=== PATIENT | male | born 1950 | race Caucasian/White ===

== ENCOUNTER 2017-04-12 14:23 | Outpatient (CLI) | payer MEDICARE ==
--- NOTE | 2017-04-20 19:33 | EKG ---
Test Reason : Blood Pressure : / mmHG Vent. Rate : 097 BPM Atrial Rate : 097 BPM P-R Int : 164 ms QRS Dur : 086 ms QT Int : 364 ms P-R-T Axes : 035 000 016 degrees QTc Int : 462 ms Normal sinus rhythm Inferior infarct , age undetermined Possible Anterior infarct , age undetermined Abnormal ECG No previous ECGs available Confirmed by ARSENIO JASSO (2) on 04/20/2017 7:33:14 PM Referred By: JERMAINE Confirmed By:ARSENIO JASSO
== END 2017-04-12 14:24 | disposition home or self-care (01) ==
LOC: LABBT 14:23
PROVIDERS: ATTEND Neurological Surgery
DX: Z01.818 Encounter for other preprocedural examination (principal); G56.21 Lesion of ulnar nerve, right upper limb
CPT/HCPCS: 93005; 93010

== ENCOUNTER 2017-04-19 09:13 | Day surgery (SDC) | payer MEDICARE ==
[2017-04-12 14:40] VITALS: BMI 31.4
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
[2017-04-19] MEDS ORDERED: Bupivacaine/Epinephrine 0.25% 30 ML VIAL ONE (11:17)
[2017-04-19] MEDS ORDERED: Midazolam HCl 2 mg/2 ml Vial ONE (11:28)
[2017-04-19] MEDS ORDERED: Fentanyl 100 MCG/2 ML VIAL ONE ×4 (11:28→13:50)
[2017-04-19] MEDS ORDERED: CEFAZOLIN/Water 2 GM/20 ML SYRINGE ONE (11:41)
[2017-04-19] MEDS ORDERED: Lidocaine 1% PF 5 ML VIAL ONE (13:02)
[2017-04-19] MEDS ORDERED: Propofol 200 MG/20 ML VIAL ONE (13:02)
--- NOTE | 2017-04-19 13:28 | OP ---
DATE OF PROCEDURE: 04/19/2017 SURGEON: Amol Neil M.D. CROWN POUNCER: Forrest Oconnor PA-C INDICATION: Pain. DIAGNOSIS: Ulnar neuropathy. PROCEDURE: Right ulnar nerve decompression, reoperation. ANESTHESIA: General. TECHNIQUE: The patient was brought into the operating room and placed under general anesthesia. He was placed in a supine position. His arms extended perpendicular to his body and prepped and draped at the level of the axilla. A linear incision, which was identified along the ulnar nerve along the elbow was identified and prepped and draped in the usual sterile fashion. 1% lidocaine was used to i nject this region. The incision was then created and an extensive amount of scar was identified with in the area. The ulnar nerve was identified and an adhesiolysis was performed in both proximal and d istal directions. After decompressing the ulnar nerve, the wound was irrigated. Hemostasis was main tained throughout. The wound was then closed in anatomic layers and a pressure dressing was applied. There were no known procedural complications.
[2017-04-19] MEDS ORDERED: HYDROmorphone 0.5 MG/0.5 ML SYRINGE ONE (14:02)
[2017-04-19] MEDS ORDERED: diphenhydrAMINE 50 MG/ML VIAL ONE (14:07)
[2017-04-19] MEDS ORDERED: diphenhydrAMINE 25 MG CAP ONE (14:32)
== END 2017-04-19 15:54 | disposition home or self-care (01) ==
LOC: SDC 09:13
PROVIDERS: ATTEND Neurological Surgery
PROC: 01N40ZZ Release Ulnar Nerve, Open Approach (ICD-10-PCS; principal; 2017-04-19)
DX: G56.21 Lesion of ulnar nerve, right upper limb (principal); R56.9 Unspecified convulsions; I10 Essential (primary) hypertension; F32.9 Major depressive disorder, single episode, unspecified; E78.5 Hyperlipidemia, unspecified; Z79.899 Other long term (current) drug therapy; Z88.6 Allergy status to analgesic agent; Z88.1 Allergy status to other antibiotic agents; Z88.0 Allergy status to penicillin; Z98.1 Arthrodesis status; Z90.89 Acquired absence of other organs; Z98.890 Other specified postprocedural states; Z87.891 Personal history of nicotine dependence; Z86.718 Personal history of other venous thrombosis and embolism
CPT/HCPCS: 96374; J1170; J1200; J2001; J2250; J2704; J3010

== ENCOUNTER 2017-05-10 13:52 | Outpatient (CLI) | payer MEDICARE ==
--- NOTE | 2017-05-10 14:27 | ULT ---
LEFT LOWER EXTREMITY VENOUS ULTRASOUND: Comparison: None. History: Left leg pain and calf pain with edema. Technique: Multiplanar grayscale and color doppler images were obtained in a left lower extremity temitope ous ultrasound. Spectral analysis of the doppler waveforms were performed. FINDINGS: The left common femoral vein, profunda femoral vein, superficial femoral vein, and popliteal vein hav e a normal appearance without visible thrombus. These vessels demonstrate normal compression, flow, a nd augmentation. The left posterior tibial vein and greater saphenous vein are also patent. IMPRESSION: No evidence of DVT. POS: [facility]
== END 2017-05-10 13:53 | disposition home or self-care (01) ==
LOC: ULT 13:52
PROVIDERS: ATTEND Family Medicine
DX: M79.605 Pain in left leg (principal)

== ENCOUNTER 2017-06-20 14:08 | Outpatient (CLI) | payer MEDICARE ==
[2017-06-20] MEDS ORDERED: Gadobenate Dimeglumine 529 MG/1 ML (20ML VIAL) ONE (16:24)
== END 2017-06-20 14:09 | disposition home or self-care (01) ==
LOC: BICMRI 14:08
PROVIDERS: ATTEND Orthopaedic Surgery Hand Surgery
DX: M51.17 Intervertebral disc disorders with radiculopathy, lumbosacral region (principal); M48.07 Spinal stenosis, lumbosacral region; M47.26 Other spondylosis with radiculopathy, lumbar region; M43.8X6 Other specified deforming dorsopathies, lumbar region
CPT/HCPCS: 36415; 72158; 82565; A9579

== ENCOUNTER 2017-07-03 14:07 | Outpatient (CLI) | payer MEDICARE ==
[2017-07-03 15:33] LABS: #Basophils 0.1 thou/uL (0.0-0.2); #Eosinphils 0.3 thou/uL (0.0-0.7); #Lymphocytes 1.8 thou/uL (1.20-3.40); #Monocytes 0.7 thou/uL (0.11-0.59); #Neutrophils 6.1 thou/uL (1.40-6.50); %Basophils 0.7 % (0.0-1.0); %Lymphocytes 20.5 % (21.0-51.0); %Monocytes 7.3 % (0.0-10.0); %Neutrophils 68.5 % (42.0-75.0); Hemoglobin 14.2 g/dL (14.0-18.0); Mean Corpuscular HGB CONC 33.5 g/dL (32.0-36.0); Mean Corpuscular Hemoglobin 31.1 pg (27.0-31.0); Mean Platelet Volume 6.6 fL (7.4-10.4); Platelet Count 193 thou/uL (130-400); RBC Distribution Width 12.9 % (11.5-14.5); Red Blood Cell (RBC) Count 4.56 mill/uL (4.70-6.10)
[2017-07-03 15:45] LABS: Prothrombin Time 13.2 SEC (12.0-14.7)
[2017-07-03 15:52] LABS: Anion Gap 10 mmol/L (10-20); BUN (Urea Nitrogen) 19 mg/dL (8.4-25.7); Calc. Creatinine Clearance 0 mL/min (70-130); Calcium 9.3 mg/dL (7.8-10.44); Carbon Dioxide 19 mmol/L (23-31); Chloride 111 mmol/L (98-107); Estimated GFR-MDRD 61; Glucose 87 mg/dL (80-115); Potassium 4.1 mmol/L (3.5-5.1); Sodium 136 mmol/L (136-145)
--- NOTE | 2017-07-03 18:11 | RAD ---
CHEST TWO VIEWS: History: Pre op. FINDINGS: Cardiac silhouette is upper limits of normal in size. Right hemidiaphragm is elevated and lobulated. There is no confluent airspace consolidation, pneumothorax, or pleural fluid evident. IMPRESSION: No active cardiopulmonary abnormalities are demonstrated. POS: [facility]
--- NOTE | 2017-07-03 21:39 | EKG ---
Test Reason : Blood Pressure : / mmHG Vent. Rate : 063 BPM Atrial Rate : 063 BPM P-R Int : 194 ms QRS Dur : 088 ms QT Int : 438 ms P-R-T Axes : 031 -08 012 degrees QTc Int : 448 ms Normal sinus rhythm Cannot rule out Anterior infarct (cited on or before 12-APR-2017) Abnormal ECG When compared with ECG of 12-APR-2017 15:29, Vent. rate has decreased BY 34 BPM Confirmed by Dio COHEN ([id number]) on 07/03/2017 9:38:43 PM Referred By: RADHA Confirmed By:Dio COHEN
== END 2017-07-03 14:08 | disposition home or self-care (01) ==
LOC: LABBT 14:07
PROVIDERS: ATTEND Orthopaedic Surgery Hand Surgery
DX: Z01.818 Encounter for other preprocedural examination (principal); G57.02 Lesion of sciatic nerve, left lower limb
CPT/HCPCS: 71046; 80048; 85025; 85610; 93005; 93010

== ENCOUNTER 2017-07-04 06:17 | Day surgery (SDC) | payer MEDICARE ==
[2017-07-03 14:24] VITALS: BMI 31.4
[2017-07-04] MEDS ORDERED: Bupivacaine PF 0.5% 30 ML VIAL ONE (06:31)
[2017-07-04] MEDS ORDERED: Bacitracin Zinc Ointment 30 gm TUBE ONE (06:31)
[2017-07-04] MEDS ORDERED: Sodium Chloride 0.9% 0 ML ONE (06:31)
[2017-07-04] MEDS ORDERED: Midazolam HCl 2 mg/2 ml Vial ONE (07:01)
[2017-07-04] MEDS ORDERED: Fentanyl 250 MCG/5 ML VIAL ONE (07:01)
[2017-07-04] MEDS ORDERED: CEFAZOLIN/Water 2 GM/20 ML SYRINGE ONE (07:11)
[2017-07-04] MEDS ORDERED: Betamet Acet/Betamet Na Ph 30 MG/5 ML VIAL ONE (08:59)
[2017-07-04] MEDS ORDERED: Fentanyl 100 MCG/2 ML VIAL ONE (09:53)
[2017-07-04] MEDS ORDERED: HYDROcodone/Acetaminophen 5/325 mg Tablet ONE (10:30)
--- NOTE | 2017-07-04 14:55 | OP ---
DATE OF PROCEDURE: 07/04/2017 PREOPERATIVE DIAGNOSES: 1. Right knee level deep peroneal nerve compression. 2. Right distal leg superficial peroneal compression. FINDINGS - Compression of both nerves with very enlarged anterior and posterior crural, compression o f the crural, compression of the deep peroneal nerve and marked fascial compression of the superficia l peroneal nerve distal leg. PROCEDURES PERFORMED: 1. Deep peroneal nerve neuroplasty. 2. Fasciotomy, proximal leg. 3. Superficial nerve neuroplasty, right distal leg. 4. Fasciotomy, anterior and lateral compartments, right leg. ESTIMATED BLOOD LOSS: 10 mL. TOURNIQUET TIME: 45 minutes. INJECTABLE: He had 3 mL of Celestone dripped over the deep peroneal nerve and 2 mL over the superfic ial peroneal nerve after release. COMPLICATIONS: None. INDICATIONS FOR PROCEDURE: Pain at the leg. Appropriate clinical and physical neurodiagnostic testi ng indicating the source of pain was at these sites. DESCRIPTION OF PROCEDURE: After successful general endotracheal anesthesia, appropriate timeout was performed, matching the appropriately done consent with the site and procedure. We then prepped the leg, outlined the incisions to include using a zigzag incision beginning set at two fingerbreadths di stal to the fibular head, 2 cm proximal fibula and 5 cm distal to the fibula. Then, we used the dist al incision technique of Parvez to find the nerve in its appropriate angle. We exsanguinated the limb and inflated tourniquet 250 mmHg pressure and began distally. This indicated skin, subcutaneous tissue, mucousy nerve through the fascia. We incised the fascia over the anterior compartment 5 mm anterior to the superficial peroneal branch. We began the mid portion and released the fascia proxim ally and once we finished this, we palpated it and there was no undue tension. Then, we lifted up on the fascia from the midportion and went distally to include to identify the three major muscular ___ __ branches sparing them. We then finished the fasciotomy both longitudinally and made some transver se splits anterior and posterior to the nerve to ensure that the fascia would have no undue tension o nce the incision was closed. We placed a moist sponge here. Attention was turned proximally, where we used a zigzag incision carried through skin, subcutaneous t issue, and at an approximately 2 cm proximal to the fibular head dissected down and found deep perone al nerve to include the arterial central location. As we went distally, arteriosus location was disa ppeared as we met all compression both the fascia and then we reached the anterior and posterior crur al points. Released these areas appropriately, freed the nerve inferior and maintained the muscle. We then went distal to this 1 cm and found the unknown name crural of fascia released as well protect ed the nerve underlying branches. We then placed Celestone on both the nerve as described above, released the tourniquet, obtained hemo stasis. We did not close any fascia. We closed both incisions with a running 3-0 Monocryl and then for the d eep dermal, epidermal closure use benzoin and Steri-Strips. The patient had a bulky dressing applied with 4 x 4's, Kerlix at each site with a 6-inch Giles wrap from a metatarsophalangeal joints to the mi dthigh. He left the operating room without evidence of anesthetic or operative complication.
== END 2017-07-04 11:05 | disposition home or self-care (01) ==
LOC: SDC 06:17
PROVIDERS: ATTEND Orthopaedic Surgery Hand Surgery
PROC: 0KNS0ZZ Release Right Lower Leg Muscle, Open Approach (ICD-10-PCS; principal; 2017-07-04)
PROC: 01NH0ZZ Release Peroneal Nerve, Open Approach (ICD-10-PCS; 2017-07-04)
DX: G57.31 Lesion of lateral popliteal nerve, right lower limb (principal); R56.9 Unspecified convulsions; I10 Essential (primary) hypertension; E78.5 Hyperlipidemia, unspecified; Z87.891 Personal history of nicotine dependence; Z88.0 Allergy status to penicillin; Z88.1 Allergy status to other antibiotic agents; Z88.8 Allergy status to other drugs, medicaments and biological substances; Z91.040 Latex allergy status; Z79.899 Other long term (current) drug therapy; Z98.1 Arthrodesis status; Z98.890 Other specified postprocedural states
CPT/HCPCS: 96374; A4216; J0702; J2250; J3010; J3490; S0020

== ENCOUNTER 2017-07-10 15:39 | Day surgery (SDC) | payer MEDICARE ==
[~2017-07-10 15:39] MED LIST: Ondansetron HCl/PF 4 MG/2 ML Vial ONE; PHENYLEPHRINE-NS 100 MCG/ML 10 ML SYRINGE ONE; PROPOFOL 200 MG/20 ML VIAL ONE; ePHEDrine/0.9% NaCl/PF SYRINGE 50 mg/10 ml ONE
[2017-07-10] MEDS ORDERED: Vancomycin HCl 1.5 GM in Sodium Chloride 0.9% 250 ML 300 ML IVPB SCH (16:45)
[2017-07-10] MEDS ORDERED: Bupivacaine PF 0.5% 30 ML VIAL ONE (16:55)
[2017-07-10] MEDS ORDERED: Bacitracin Zinc Ointment 30 gm TUBE ONE (16:55)
[2017-07-10] MEDS ORDERED: Sodium Chloride 0.9% 30 ML ONE (16:56)
[2017-07-10 17:33] LABS: #Basophils 0.1 thou/uL (0.0-0.2); #Eosinphils 0.2 thou/uL (0.0-0.7); #Lymphocytes 2.8 thou/uL (1.20-3.40); #Monocytes 0.6 thou/uL (0.11-0.59); #Neutrophils 5.9 thou/uL (1.40-6.50); %Basophils 0.9 % (0.0-1.0); %Eosinophils 2.1 % (0.0-10.0); %Lymphocytes 29.2 % (21.0-51.0); %Monocytes 6.6 % (0.0-10.0); %Neutrophils 61.2 % (42.0-75.0); Hemoglobin 13.2 g/dL (14.0-18.0); Mean Corpuscular HGB CONC 32.8 g/dL (32.0-36.0); Mean Corpuscular Volume 94.3 fl (80.0-94.0); Mean Platelet Volume 6.7 fL (7.4-10.4); Platelet Count 224 thou/uL (130-400); RBC Distribution Width 12.6 % (11.5-14.5); Red Blood Cell (RBC) Count 4.28 mill/uL (4.70-6.10); White Blood Cell (WBC) Count 9.6 thou/uL (4.8-10.8)
[2017-07-10] MEDS ORDERED: Fentanyl 100 MCG/2 ML VIAL ONE ×3 (17:53→19:31)
[2017-07-10] MEDS ORDERED: Sodium Chloride 0.9% 10 ML ONE (18:20)
[2017-07-10] MEDS ORDERED: Promethazine HCl 25 MG/ML VIAL IM PRN (19:03)
[2017-07-10] MEDS ORDERED: Ondansetron HCl/PF 4 MG/2 ML Vial IVP PRN (19:03)
[2017-07-10] MEDS ORDERED: Promethazine HCl 25 MG/ML VIAL SLOW IVP PRN (19:03)
[2017-07-10] MEDS ORDERED: Morphine 4 MG/ML VIAL ONE (19:56)
[2017-07-10] MEDS ORDERED: HYDROcodone/Acetaminophen 5/325 mg Tablet ONE (20:32)
--- NOTE | 2017-07-11 11:52 | OP ---
DATE OF PROCEDURE: 07/10/2017 PREOPERATIVE DIAGNOSES: Right wound/at the lateral knee separation after previous peroneal nerve dec ompression proximal and distal bone. The proximal wound dehiscence. POSTOPERATIVE FINDINGS: 1. Wound separation complete. 2. No gross infection. 3. No gross evidence of peroneal nerve damage. PROCEDURE PERFORMED: 1. Wound debridement depth 1.043 following techniques. 2. Excisional technique. 3. Removal of denuded fat and the wound edges were debrided as well excisionally. 4. Down to, but not including the peroneal nerve and then we inspected the fascia nerve area as well . There was no gross infection found. 5. Instrumentation used for tenotomy scissors, 11 blade knife, curette, and Adson's and Pulsavac irr igation, total of 3 liters of the Pulsavac pressure with vancomycin powder. INDICATIONS: The patient in 1 week after surgery where he had his wound closed in a deep fashion wit h a running heavy Monocryl and then Steri-Strips, but he reported difficulty showering and the wound was dressed with sterile water and we saw that the wound had at the lateral knee proximal l eg, but did not separate the distal third incision whatsoever. This area was much dry in the clinic. There is no infection. DESCRIPTION OF PROCEDURE: After successful general LMA technique, the limb prepped and draped. Time out done appropriately. We then inspected the wound, removed all the Steri-Strip tape, lifted up th e wound edges and saw no gross infection, saw the peroneal nerve intact and then denuded fat subcutan eous were removed with the techniques listed (debridement) above. Then, we did the same with a circu mferentially 1 mm of skin, proximally and distally. Hemostasis obtained. We then gave a sample of f at and subcutaneous skin for the acid fast culture and a swab was done for culture of the wound post- debridement. Then closed the wound with interrupted 3-0 Monocryl in an excellent fashion with appropriate tension. This was followed by interrupted simple 3-0 nylon, each stitch 5 mm from the other to prevent a deh iscence. Wound was in excellent condition, 30 mL 0.5% Marcaine was given subcutaneously circumferent ially around the incision and proximal to it. Patient had a bulky dressing applied with Adaptic, but no bacitracin and the same was done at the distal wound. Kerlix was placed over the 4 x 4, and then a 6-inch Giles from the metatarsophalangeal joint level up to the proximal third of thigh was used as well. The patient left the operating without complication.
[2017-07-14 10:20] LABS: Fungus Stain Final report (.)
[2017-08-10 07:30] LABS: Fungus Culture Final report (.)
== END 2017-07-10 20:58 | disposition home or self-care (01) ==
LOC: SDC 15:39
PROVIDERS: ATTEND Orthopaedic Surgery Hand Surgery
PROC: 0JBN0ZZ Excision of Right Lower Leg Subcutaneous Tissue and Fascia, Open Approach (ICD-10-PCS; principal; 2017-07-10)
DX: T81.30XA Disruption of wound, unspecified, initial encounter (principal); Z88.1 Allergy status to other antibiotic agents; Z88.8 Allergy status to other drugs, medicaments and biological substances; Z88.2 Allergy status to sulfonamides; Z91.040 Latex allergy status; Z87.891 Personal history of nicotine dependence
CPT/HCPCS: 85025; 85652; 87070; 87102; 87116; 87205; 87206; 96374; A4216; J2270; J2405; J2704; J3010; J3370; J3490; J7050; S0020

== ENCOUNTER 2017-08-03 10:25 | Outpatient (CLI) | payer MEDICARE | END 2017-08-03 10:26 | disposition home or self-care (01) | LOC: BICCT 10:25 | PROVIDERS: ATTEND Neurological Surgery | DX: M54.5 Low back pain (principal); M48.061 Spinal stenosis, lumbar region without neurogenic claudication; M48.8X6 Other specified spondylopathies, lumbar region | CPT/HCPCS: 72131 ==

== ENCOUNTER 2017-11-15 16:17 | Emergency (ER) | payer MEDICARE ==
[2017-11-15] MEDS ORDERED: HYDROcodone/Acetaminophen 5/325 mg Tablet ONE (17:01)
== END 2017-11-15 17:05 | disposition home or self-care (01) ==
LOC: ERS 16:17
DX: G62.9 Polyneuropathy, unspecified (principal); I10 Essential (primary) hypertension
CPT/HCPCS: 99283

== ENCOUNTER 2018-01-01 12:43 | Outpatient (CLI) | payer MEDICARE ==
[~2018-01-01 12:43] MED LIST changes: +Gadobenate Dimeglumine 529 MG/1 ML (20ML VIAL) ONE; -Ondansetron HCl/PF 4 MG/2 ML Vial ONE; -PHENYLEPHRINE-NS 100 MCG/ML 10 ML SYRINGE ONE; -PROPOFOL 200 MG/20 ML VIAL ONE; -ePHEDrine/0.9% NaCl/PF SYRINGE 50 mg/10 ml ONE
--- NOTE | 2018-01-01 16:06 | MRI ---
MRI BRAIN WITH AND WITHOUT IV CONTRAST: HISTORY: Headache, new onset tremor in the right lower extremity. FINDINGS: There are multiple foci of T2 prolongation in the periventricular white matter consistent with chroni c small-vessel ischemic disease. The ventricular size is appropriate and the basilar cisterns are pa tent. No restricted diffusion is seen. No evidence of infarct, hemorrhage, mass, midline shift, or abnormal extraaxial fluid collections is seen. There is mucosal disease in the paranasal sinuses. IMPRESSION: No evidence of acute intracranial process or mass. POS: [facility]
== END 2018-01-01 12:44 | disposition home or self-care (01) ==
LOC: BICMRI 12:43
PROVIDERS: ATTEND Orthopaedic Surgery Hand Surgery
DX: G25.2 Other specified forms of tremor (principal)
CPT/HCPCS: 70553; 82565; A9579

== ENCOUNTER 2018-03-15 09:34 | Outpatient (CLI) | payer MEDICARE ==
--- NOTE | 2018-03-15 13:18 | MRI ---
MRI RIGHT KNEE: DATE: 03/15/2018. PROVIDED CLINICAL HISTORY: Right knee pain. FINDINGS: No comparisons. Changes of mucinous degeneration of the ACL are demonstrated. There is increased si gnal intensity on fluid sensitive sequences involving the proximal PCL compatible with partial tear. The mediocollateral ligament, lateral collateral ligamentous complex, and extensor mechanism appear intact. There is complex nondisplaced degenerative tearing/maceration of the body and posterior horn of the m edial meniscus. The lateral meniscus demonstrates no evidence for a tear. There is extensive full-thickness articular cartilage loss involving much of the central weight-beari ng portions of the medial femorotibial joint. Numerous intraarticular bodies are present throughout the knee joint, the largest measuring about 9 mm. Osteophyte formation is seen about the knee, predominating about the medial femorotibial joint. Ther e is articular cartilage signal and homogeneity involving the patellar cartilage with mild thinning o f the medial facet. There is a large knee joint effusion. No focal concerning regional marrow or muscular signal abnorma lity. Signal alteration involving the medial femoral condyle and medial tibial plateau reactive to a rticular cartilage loss noted. IMPRESSION: 1. Partial tear of the posterior cruciate ligament. 2. Extensive maceration/complex nondisplaced degenerative tearing involving the body and posterior h orn of the medial meniscus. 3. Advanced medial femorotibial degenerative chondrosis with large knee joint effusion and multiple intraarticular bodies. 4. Patellar chondrosis. POS: [facility]
== END 2018-03-15 09:35 | disposition home or self-care (01) ==
LOC: BICMRI 09:34
PROVIDERS: ATTEND Orthopaedic Surgery Hand Surgery
DX: M23.321 Other meniscus derangements, posterior horn of medial meniscus, right knee (principal); M25.461 Effusion, right knee

== ENCOUNTER 2018-03-29 14:24 | Outpatient (CLI) | payer MEDICARE ==
[2018-03-29 15:02] LABS: #Basophils 0.1 thou/uL (0.0-0.2); #Eosinphils 0.3 thou/uL (0.0-0.7); #Lymphocytes 1.3 thou/uL (1.20-3.40); #Monocytes 0.8 thou/uL (0.11-0.59); #Neutrophils 5.1 thou/uL (1.40-6.50); %Basophils 0.7 % (0.0-1.0); %Eosinophils 3.6 % (0.0-10.0); %Lymphocytes 17.5 % (21.0-51.0); %Monocytes 10.2 % (0.0-10.0); %Neutrophils 67.9 % (42.0-75.0); Hemoglobin 14.3 g/dL (14.0-18.0); Mean Corpuscular HGB CONC 33.2 g/dL (32.0-36.0); Mean Corpuscular Hemoglobin 31.4 pg (27.0-31.0); Mean Corpuscular Volume 94.7 fL (78.0-98.0); Platelet Count 179 thou/uL (130-400); RBC Distribution Width 12.2 % (11.5-14.5); Red Blood Cell (RBC) Count 4.55 mill/uL (4.70-6.10); White Blood Cell (WBC) Count 7.5 thou/uL (4.8-10.8)
[2018-03-29 15:25] LABS: Anion Gap 16 mmol/L (10-20); BUN (Urea Nitrogen) 17 mg/dL (8.4-25.7); Calc. Creatinine Clearance 0 mL/min (70-130); Calcium 9.3 mg/dL (7.8-10.44); Carbon Dioxide 20 mmol/L (23-31); Chloride 109 mmol/L (98-107); Estimated GFR-MDRD 58; Glucose 97 mg/dL (80-115); Potassium 4.7 mmol/L (3.5-5.1); Sodium 140 mmol/L (136-145)
== END 2018-03-29 14:25 | disposition home or self-care (01) ==
LOC: LABBT 14:24
PROVIDERS: ATTEND Orthopaedic Surgery
DX: Z01.818 Encounter for other preprocedural examination (principal); S83.242A Other tear of medial meniscus, current injury, left knee, initial encounter
CPT/HCPCS: 80048; 85025; 93005; 93010

== ENCOUNTER 2018-04-04 08:15 | Day surgery (SDC) | payer MEDICARE ==
[2018-03-29 14:49] VITALS: BMI 31.4
[2018-04-04] MEDS ORDERED: CEFAZOLIN 2 GM/50 ML BAG ONE (09:01)
[2018-04-04] MEDS ORDERED: PROPOFOL 20 ML ONE (09:25)
[2018-04-04] MEDS ORDERED: Bupivacaine HCl 0.5%/Epinephrine 1:200,000/PF 30 ml Vial ONE (10:00)
[2018-04-04] MEDS ORDERED: Lidocaine 2% w/Epinephrine 1:200K 20 ML VIAL ONE (10:00)
[2018-04-04] MEDS ORDERED: Fentanyl 100 MCG/2 ML VIAL ONE (11:07)
[2018-04-04] MEDS ORDERED: Lidocaine 1% PF 5 ML VIAL ONE (18:19)
[2018-04-04] MEDS ORDERED: Ondansetron PF 4 MG/2 ML Vial ONE (18:19)
[2018-04-04] MEDS ORDERED: Dexamethasone 20 MG/5 ML VIAL ONE (18:19)
--- NOTE | 2018-04-05 11:29 | OP ---
DATE OF PROCEDURE: 04/04/2018 PREOPERATIVE DIAGNOSIS: Medial meniscus tear, right knee. POSTOPERATIVE DIAGNOSES: Medial meniscus tear, right knee and grade 4 chondromalacia, small portion of medial femoral condyle, right knee. ANESTHESIA: General. BLOOD LOSS: Minimal. SPECIMENS: None. DRAINS: None. COMPLICATIONS: None. TOURNIQUET TIME: Not used. DESCRIPTION OF PROCEDURE: The patient was taken to the operating room, where general anesthesia was induced. Right leg was prepped and draped in usual sterile fashion. Scope was placed in the lateral portal. A probe was placed in the medial portal. Patellofemoral joint had some mild degenerative changes. There were small chondral loose bodies in the suprapatellar pouch, which I just removed with the shaver. The medial compartment had a large medial meniscus tear. I debrided using basket forceps, smoothed using a 4.0 full radius resector. I probed the meniscus and confirmed it was stable. I did do a chondroplasty of some of unstable cartilaginous flap tear edges. Lateral compartment was free of disease. ACL appeared to be partially torn, but muscle fibers were intact. He was then drained. Sterile dressing was applied. There were no complications. Job ID: [id number]
== END 2018-04-04 14:00 | disposition home or self-care (01) ==
LOC: SDC 08:15
PROVIDERS: ATTEND Orthopaedic Surgery
PROC: 0SBC4ZZ Excision of Right Knee Joint, Percutaneous Endoscopic Approach (ICD-10-PCS; principal; 2018-04-04)
DX: S83.242A Other tear of medial meniscus, current injury, left knee, initial encounter (principal); M94.261 Chondromalacia, right knee; Z79.899 Other long term (current) drug therapy; Z88.0 Allergy status to penicillin; Z88.8 Allergy status to other drugs, medicaments and biological substances; Z88.1 Allergy status to other antibiotic agents; Z91.040 Latex allergy status
CPT/HCPCS: 29881; 97139; G8978; G8979; G8980; J0670; J1100; J2001; J2405; J2704; J3010

== ENCOUNTER 2018-05-17 09:59 | Day surgery (SDC) | payer MEDICARE ==
[2018-05-16 10:38] VITALS: BMI 33.5
[2018-05-17] MEDS ORDERED: Lidocaine 2% PF 5 ML VIAL ONE (11:57)
[2018-05-17] MEDS ORDERED: Bupivacaine HCl 0.5%/Epinephrine 1:200,000/PF 30 ml Vial ONE ×2 (11:57→13:13)
[2018-05-17] MEDS ORDERED: Sodium Chloride 0.9% 0 ML ONE (11:57)
[2018-05-17] MEDS ORDERED: PHENYLEPHRINE-NS 100 MCG/ML 10 ML SYRINGE ONE (12:11)
[2018-05-17] MEDS ORDERED: ePHEDrine 50 MG/ML VIAL ONE (12:11)
[2018-05-17] MEDS ORDERED: Ondansetron PF 4 MG/2 ML Vial ONE (12:11)
[2018-05-17] MEDS ORDERED: PROPOFOL 200 MG/20 ML VIAL ONE (12:11)
[2018-05-17] MEDS ORDERED: Famotidine/PF 20 mg/2ml Vial ONE (12:16)
[2018-05-17] MEDS ORDERED: Fentanyl 100 MCG/2 ML VIAL ONE ×3 (12:16→15:10)
[2018-05-17] MEDS ORDERED: PROPOFOL 0 ML ONE (12:17)
[2018-05-17] MEDS ORDERED: Propofol 500 MG/50 ML VIAL ONE (12:17)
[2018-05-17] MEDS ORDERED: Midazolam HCl 2 mg/2 ml Vial ONE (12:27)
[2018-05-17] MEDS ORDERED: Levofloxacin 500 mg/D5W 100 ml Premix Bag ONE (12:50)
[2018-05-17] MEDS ORDERED: HYDROcodone/Acetaminophen 5/325 mg Tablet ONE (15:28)
--- NOTE | 2018-05-17 17:43 | RAD ---
FOUR INTRAOPERATIVE IMAGES OF THE LOWER THORACIC SPINE: 05/17/18 HISTORY: Placement of dorsal column stimulator. Two AP and two lateral views of the lower thoracic spine demonstrate placement of mid and lower thora cic dorsal column stimulators along the posterior aspect of the spinal canal in the lower thoracic re gion. There is also an L1 vertebroplasty. IMPRESSION: Placement of dorsal column stimulators. POS: [facility]
--- NOTE | 2018-05-17 21:12 | OP ---
DATE OF PROCEDURE: 05/17/2018 MULTICULTURAL MANAGER SURGEON: Dr. Stacy Linares. PREOPERATIVE DIAGNOSES: 1. Postlaminectomy syndrome. 2. Lumbar radiculopathy. POSTOPERATIVE DIAGNOSES: 1. Postlaminectomy syndrome. 2. Lumbar radiculopathy. PROCEDURES PERFORMED: 1. Spinal cord stimulator generator implants. 2. Spinal cord stimulator lead implant x2. 3. Programming. 4. Fluoroscopy. ESTIMATED BLOOD LOSS: Minimal. DESCRIPTION OF PROCEDURE: The patient was taken to the procedure room and placed prone on the operating room table. A time-out was performed. The back was prepped with ChloraPrep and sterile drapes were applied. Using the fluoroscopy, we located the interspace of L1-L2. We anesthestized the skin above this with 0.5% Marcaine with epinephrine. We used a 10-blade scalpel to make an incision and then blunt dissected this down to fascia. We then inserted a 14-gauge needle in a paramedian technique and engaged in an L1-L2 ligament. We used lost resistance to air to gain access to the epidural space. Aspiration was negative for heme or CSF. An eight-contact stimulator lead was then threaded through the needle and under continuous fluoroscopy, it was threaded through the dorsal right side of midline epidural space up to the top of T9. A contralateral lead was placed in the exact same fashion; however, once we went the epidural space, we threaded it to right of midline, top of T10. Stimulation was performed with the patient awake and the patient was noted paresthesia in all painful areas. The needles were removed, taken care to keep the leads in place, anchors were placed over the leads and taken down to fascia. These were clicked to lock them in place. These were sutured into fascia using 2-0 silk suture x2. We took another image and leads had removed. We torqued down the leads and they did not move. We then made an incision in the left buttock after anesthetizing with 0.5% Marcaine with epinephrine. The incision was blunt dissected down to Argelia's fascia and then we blunt dissected it superior and inferior to create a pocket. A tunneling device was used to make a connection between the 2 incisions. The leads were placed through the tunneling device and brought to the battery pocket. The leads were connected to the battery and both leads were torqued down. Impedances were checked, which were all good. The battery was flipped into the pocket. We then approximated both incisions using 2-0 Vicryl suture in a simple interrupted fashion. We approximated the skin using a 4-0 Monocryl stitch in a subcuticular fashion and occlusive dressing of Dermabond was applied over both. Job ID: [id number]
== END 2018-05-17 15:55 | disposition home or self-care (01) ==
LOC: SDC 09:59
PROVIDERS: ATTEND Specialist
PROC: 0JH70DZ Insertion of Multiple Array Stimulator Generator into Back Subcutaneous Tissue and Fascia, Open Approach (ICD-10-PCS; principal; 2018-05-17)
PROC: 00HU3MZ Insertion of Neurostimulator Lead into Spinal Canal, Percutaneous Approach (ICD-10-PCS; 2018-05-17)
DX: M96.1 Postlaminectomy syndrome, not elsewhere classified (principal); M54.16 Radiculopathy, lumbar region; G89.4 Chronic pain syndrome; M48.061 Spinal stenosis, lumbar region without neurogenic claudication; I10 Essential (primary) hypertension; E78.5 Hyperlipidemia, unspecified; Z87.891 Personal history of nicotine dependence; Z79.899 Other long term (current) drug therapy; Z88.0 Allergy status to penicillin; Z88.1 Allergy status to other antibiotic agents; Z88.8 Allergy status to other drugs, medicaments and biological substances; Z91.040 Latex allergy status; Z98.1 Arthrodesis status
CPT/HCPCS: 63650 ×2; 63685; 72100; 76000; C1767; J0670; J1956; J2001; J2250; J2405; J2704; J3010; J3490; S0028

== ENCOUNTER 2018-05-21 14:55 | Outpatient (CLI) | payer MEDICARE ==
--- NOTE | 2018-05-21 16:23 | RAD ---
RIGHT FOOT 3 VIEWS: HISTORY: Right foot pain. FINDINGS/IMPRESSION: There are degenerative changes are present in the 1st MTP joint. No fracture, dislocation, or bone d estruction is identified. POS: C
== END 2018-05-21 14:56 | disposition home or self-care (01) ==
LOC: BICRAD 14:55
PROVIDERS: ATTEND Specialist
DX: M79.671 Pain in right foot (principal); M19.071 Primary osteoarthritis, right ankle and foot
CPT/HCPCS: 36415; 81001; 84153; 87086

== ENCOUNTER 2018-05-28 13:15 | Outpatient (CLI) | payer MEDICARE ==
[2018-05-28 15:24] LABS: Hemoglobin 14.2 g/dL (14.0-18.0); Mean Corpuscular HGB CONC 32.6 g/dL (32.0-36.0); Mean Corpuscular Hemoglobin 31.3 pg (27.0-31.0); Mean Corpuscular Volume 96.1 fL (78.0-98.0); Mean Platelet Volume 7.2 fL (7.4-10.4); Platelet Count 207 thou/uL (130-400); RBC Distribution Width 12.3 % (11.5-14.5); Red Blood Cell (RBC) Count 4.54 mill/uL (4.70-6.10); White Blood Cell (WBC) Count 7.7 thou/uL (4.8-10.8)
[2018-05-28 15:30] LABS: PTT 30.7 SEC (22.9-36.1); Prothrombin Time 12.9 SEC (12.0-14.7)
[2018-05-28 15:44] LABS: Anion Gap 15 mmol/L (10-20); BUN (Urea Nitrogen) 9 mg/dL (8.4-25.7); Calc. Creatinine Clearance 0 mL/min (70-130); Calcium 9.6 mg/dL (7.8-10.44); Carbon Dioxide 15 mmol/L (23-31); Chloride 113 mmol/L (98-107); Estimated GFR-MDRD 65; Glucose 99 mg/dL (80-115); Potassium 3.8 mmol/L (3.5-5.1); Sodium 139 mmol/L (136-145)
--- NOTE | 2018-05-28 15:52 | RAD ---
CHEST 2 VIEWS: HISTORY: Preoperative exam. COMPARISON: None. FINDINGS: Dorsal column stimulator is noted. Slight elongation of the aorta. Normal cardiac silhouette. The pulmonary vessels and hilum are normal. Costophrenic angles are clear. No consolidation or mass. N o pneumothorax or osseous abnormalities. IMPRESSION: No acute cardiopulmonary process. POS: C
[2018-05-28 16:28] LABS: Bilirubin Negative (Negative); Blood, Urine Negative (Negative); Clarity CLEAR (Clear); Glucose, Urine (Dipstick) Negative (Negative); Leukocyte Negative (Negative); Nitrite Negative (Negative); Protein, Urine (Dipstick) Negative (Neg-Trace); Specific Gravity, Urine 1.018 (1.002-1.036); Urobilinogen 0.2 mg/dL (0.2-1.0)
[2018-05-28 16:44] LABS: Bacteria/HPF None Seen HPF (None Seen); Crystals/HPF RARE CA OXALATE HPF (Negative); Hyaline Casts/LPF NONE SEEN LPF (0-3 Hyaline); RBC/HPF None Seen HPF (0-3); Squamous Epithelial 0-3 HPF (0-3); WBC/HPF None Seen HPF (0-3)
== END 2018-05-28 13:16 | disposition home or self-care (01) ==
LOC: LABBT 13:15
PROVIDERS: ATTEND Urology
DX: Z01.818 Encounter for other preprocedural examination (principal); Z12.5 Encounter for screening for malignant neoplasm of prostate; R97.20 Elevated prostate specific antigen [PSA]; N40.1 Benign prostatic hyperplasia with lower urinary tract symptoms; N52.9 Male erectile dysfunction, unspecified; E66.9 Obesity, unspecified; G62.9 Polyneuropathy, unspecified; Z87.440 Personal history of urinary (tract) infections; Z87.448 Personal history of other diseases of urinary system
CPT/HCPCS: 71046; 80048; 81001; 85027; 85610; 85730; 87086

== ENCOUNTER 2018-05-30 10:41 | Outpatient (CLI) | payer MEDICARE ==
[~2018-05-30 10:41] MED LIST changes: -Gadobenate Dimeglumine 529 MG/1 ML (20ML VIAL) ONE; +Iodixanol 320 MG/ML (100 ML BOT) ONE
--- NOTE | 2018-05-30 14:02 | CT ---
CT ABDOMEN AND PELVIS WITH AND WITHOUT IV CONTRAST: Date: 05/30/18 HISTORY: Elevated PSA. R97.2. FINDINGS: Each renal collecting system and ureter are decompressed without stone evident. Urinary bladder is un remarkable. Mild scarring at the lung bases. A curved area of low density associated with the posterior and later al aspect of the right liver lobe has the appearance of a diaphragmatic leaflet indenting the liver o n the coronal images. Old post-traumatic or postoperative changes of the left lateral lower ribs and the right iliac bone. There are degenerative changes of the lumbar spine. Vertebroplasty cement at an upper lumbar level. No filling defects are apparent within the urinary system on the delayed images. Scattered diverticul a arise from the colon without adjacent inflammation. No enlarged lymph nodes or free fluid are appar ent. There is calcification within the arterial structures. Dorsal column stimulator of the spine is partially visualized. Lobular cysts arise from the cortex of each kidney. Prostate gland shows no foc al abnormalities on CT. IMPRESSION: 1. Bilateral renal cysts. No acute urinary tract abnormalities are demonstrated. 2. Atherosclerosis. 3. Diverticulosis. No evidence of diverticulitis. POS: [facility]
== END 2018-05-30 10:42 | disposition home or self-care (01) ==
LOC: TBSIIMAG 10:41
PROVIDERS: ATTEND Urology
DX: N40.1 Benign prostatic hyperplasia with lower urinary tract symptoms (principal); R97.20 Elevated prostate specific antigen [PSA]; Z87.440 Personal history of urinary (tract) infections; N28.1 Cyst of kidney, acquired; I70.90 Unspecified atherosclerosis; K57.90 Diverticulosis of intestine, part unspecified, without perforation or abscess without bleeding
CPT/HCPCS: 74178; Q9967

== ENCOUNTER 2018-06-11 06:09 | Day surgery (SDC) | payer MEDICARE ==
[2018-05-28 13:33] VITALS: BMI 32.1
[2018-06-11] MEDS ORDERED: Levofloxacin 500 mg/D5W 100 ml Premix Bag ONE (06:35)
[2018-06-11] MEDS ORDERED: Fentanyl 100 MCG/2 ML VIAL ONE (06:37)
[2018-06-11] MEDS ORDERED: Famotidine/PF 20 mg/2ml Vial ONE (06:37)
[2018-06-11] MEDS ORDERED: Phenazopyridine HCl 97.5 MG TABLET ONE (08:30)
[2018-06-11] MEDS ORDERED: Morphine 4 MG/ML VIAL ONE (08:31)
--- NOTE | 2018-06-11 10:20 | OP ---
DATE OF PROCEDURE: 06/11/2018 PRIMARY CARE PHYSICIAN: Elzbieta Velazquez MD PREOPERATIVE DIAGNOSES: 1. A 67-year-old morbidly obese male with history of elevated PSA of 18.9, unremarkable digital rectal exam. 2. History of benign prostatic hyperplasia, prior history of cystoscopy due to "obstruction unknown course.". POSTOPERATIVE DIAGNOSES: 1. A 67-year-old morbidly obese male with history of elevated PSA of 18.9, unremarkable digital rectal exam. 2. History of benign prostatic hyperplasia, prior history of cystoscopy due to "obstruction unknown course.". PROCEDURES PERFORMED: Flexible cystoscopy, transrectal ultrasound prostate biopsy 12 needle core. ANESTHESIA: LMA. COMPLICATIONS: None apparent. DISPOSITION: To recovery room in stable condition. SPECIMEN: Standard 12 core needle biopsy of the prostate. INTRAOPERATIVE FINDINGS: 1. Wide caliber bulbar stricture, 16 to 18-[place] caliber, not warranting treatment. 2. Bilobar hyperplasia coapting with minimal BPH, no evidence of intravesical median lobe. 3. Bilateral ureteral orifices about 3 to 4 mm proximal to the bladder neck. 4. Bladder grossly unremarkable for lesion, tumor, or stone. 5. Mild debris within the bladder. 6. Transrectal ultrasound without evidence of lesion of concern. 7. Unremarkable MAGALY. INDICATIONS FOR PROCEDURE AND HISTORY: Mr. Beaulieu is a 67-year-old male, who presented for evaluation of elevated PSA. The patient has undergone knee surgery and desired to defer his prostate biopsy. Subsequently underwent nerve stimulator and has been on Levaquin and Bactrim per Pain Service. He was cleared by Pain Service and Orthopaedic Surgery to proceed with prostate biopsy. Risks and complications and indications of the procedure was reviewed with the patient in detail. Risks and complications including, but not limited to, bleeding, pain, infection, urosepsis, significant blood per rectum, urethra requiring surgical intervention, and sepsis reviewed. Questions answered to his satisfaction and desired to proceed. DESCRIPTION OF PROCEDURE: After an informed consent was signed, the patient was taken to the operating room, placed in a supine position. The genital area was formally prepped and draped. We used a flexible cystoscope to survey. The anterior urethra was within normal limits. There was an incidental bulbar stricture, white caliber about 16 to 18-[place] caliber, not warranting treatment. Scope passed without significant issues. Bilobar hyperplasia coapting lateral lobes were noted. There was minimal BPH component with no evidence of intravesical median lobe. Bladder was entered, which demonstrated the ureteral orifices in normal orthotopic position with UOs identified about 3 to 4 mm proximal to the bladder neck. There was mild debris within the trigone. There was no evidence of bladder stone, tumors, or trabeculation of the bladder concerning. At this time, a 16-[place] Rosales catheter was placed easily with clear output of urine 10 mL insufflated and the patient was placed in a lateral decubitus position. We placed a transrectal ultrasound probe and obtained a volume study. The prostate was measured with urethral length of 4.2, width 4.6, height 2.9 with volume estimated to be 33.7 g. At this time, we performed a standard 12 core needle biopsy, which he tolerated uneventfully. There was minimal blood per rectum. No significant blood per Rosales. Rosales catheter was subsequently removed. He will be discharged with Levaquin 750 one p.o. daily for 3 days, Flomax refill prescription provided. Advised regarding no aspirin and ibuprofen products for minimum 1 week. He will follow up with me on June 25 at 1:30 to review pathology. Job ID: [id number]
[2018-06-11] MEDS ORDERED: Ondansetron PF 4 MG/2 ML Vial ONE (14:51)
[2018-06-11] MEDS ORDERED: PROPOFOL 200 MG/20 ML VIAL ONE (14:51)
[2018-06-11] MEDS ORDERED: Metoclopramide HCl 10 MG/2 ML VIAL ONE (14:51)
[2018-06-11] MEDS ORDERED: Lidocaine 1% PF 5 ML VIAL ONE (14:51)
[2018-06-11] MEDS ORDERED: PHENYLEPHRINE-NS 100 MCG/ML 10 ML SYRINGE ONE (14:51)
== END 2018-06-11 10:10 | disposition home or self-care (01) ==
LOC: SDC 06:09
PROVIDERS: ATTEND Urology
PROC: 0VB03ZX Excision of Prostate, Percutaneous Approach, Diagnostic (ICD-10-PCS; principal; 2018-06-11)
PROC: 0TJB8ZZ Inspection of Bladder, Via Natural or Artificial Opening Endoscopic (ICD-10-PCS; 2018-06-11)
DX: C61 Malignant neoplasm of prostate (principal); N41.0 Acute prostatitis; N40.1 Benign prostatic hyperplasia with lower urinary tract symptoms; R39.14 Feeling of incomplete bladder emptying; R39.15 Urgency of urination; R39.12 Poor urinary stream; N35.912 Unspecified bulbous urethral stricture, male; I10 Essential (primary) hypertension; E78.5 Hyperlipidemia, unspecified; N52.9 Male erectile dysfunction, unspecified; G62.9 Polyneuropathy, unspecified; E66.01 Morbid (severe) obesity due to excess calories; Z68.32 Body mass index [BMI] 32.0-32.9, adult; Z87.891 Personal history of nicotine dependence; Z88.0 Allergy status to penicillin; Z88.8 Allergy status to other drugs, medicaments and biological substances; Z91.040 Latex allergy status
CPT/HCPCS: 88305; 88341; 88342; J0131; J1956; J2001; J2270; J2405; J2704; J2765; J3010; J3370; S0028

== ENCOUNTER 2018-07-19 10:44 | Outpatient (CLI) | payer MEDICARE ==
--- NOTE | 2018-07-19 11:02 | RAD ---
2 views of the chest: 07/19/2018 COMPARISON: 05/28/2018 HISTORY: Shortness of breath FINDINGS: Heart and mediastinal contours are stable. Stable dorsal column stimulator lead noted overl nidia the mid thoracic spine. Stable elevation of right hemidiaphragm. Significant stable irregularity is seen involving the posterior left sixth rib, which may be on the b asis of postsurgical absence. No focal consolidation or alveolar edema. Impression: Stable appearance of the chest-no acute findings.
== END 2018-07-19 10:45 | disposition home or self-care (01) ==
LOC: RAD 10:44
PROVIDERS: ATTEND Internal Medicine Critical Care Medicine
DX: R06.00 Dyspnea, unspecified (principal)
CPT/HCPCS: 71046

== ENCOUNTER 2018-07-23 10:07 | Outpatient (CLI) | payer MEDICARE ==
--- NOTE | 2018-07-23 14:14 | NM ---
WHOLE BODY BONE SCAN: HISTORY: Malignant neoplasm of the prostate RADIOPHARMACEUTICAL: 31 mCi technetium-99m MDP injected intravenously. COMPARISON: None FINDINGS: There is increased uptake in the shoulders, sternoclavicular joints, right knee, hands, and feet con sistent with degenerative changes. No other abnormal areas of tracer localization seen in the skeleton to suggest metastatic disease. Tracer excretion through the kidneys is within normal limits. IMPRESSION: No scintigraphic evidence of osseous metastatic disease.
== END 2018-07-23 10:08 | disposition home or self-care (01) ==
LOC: NM 10:07
PROVIDERS: ATTEND Urology
DX: C61 Malignant neoplasm of prostate (principal)
CPT/HCPCS: 78306; A9503

== ENCOUNTER 2018-10-10 14:46 | Outpatient (CLI) | payer MEDICARE ==
--- NOTE | 2018-10-10 15:46 | RAD ---
CHEST 2 VIEWS: Date: 10/10/18 HISTORY: Cough, wheezing, fever, dyspnea. COMPARISON: 05/28/18, 07/19/18. FINDINGS: There is some anterior right hemidiaphragm elevation. Dorsal column stimulator leads in place. Minima l focal left-sided pleural thickening and some generalized right-sided pleural thickening, all of whi ch appears to be stable. Probable old left rib deformity. No confluent pneumonia, overt edema, or ple ural effusion. IMPRESSION: Minimal chronic appearing pleural changes bilaterally. No significant acute intrathoracic disease. At herosclerosis of aorta. POS: OFF
== END 2018-10-10 14:47 | disposition home or self-care (01) ==
LOC: BICRAD 14:46
PROVIDERS: ATTEND Family Medicine
DX: J98.9 Respiratory disorder, unspecified (principal); I70.0 Atherosclerosis of aorta
CPT/HCPCS: 71046

== ENCOUNTER 2018-11-01 13:49 | Emergency (ER) | payer MEDICARE ==
[2018-11-01] MEDS ORDERED: Silver Sulfadiazine 1% Cream 50 GM JAR ONE (14:40)
== END 2018-11-01 15:40 | disposition home or self-care (01) ==
LOC: ERS 13:49
DX: L25.9 Unspecified contact dermatitis, unspecified cause (principal); I10 Essential (primary) hypertension
CPT/HCPCS: 99283

== ENCOUNTER 2019-05-23 09:21 | Outpatient (CLI) | payer MEDICARE ==
[2019-05-23 10:55] LABS: #Basophils 0.1 thou/uL (0.0-0.2); #Eosinphils 0.2 thou/uL (0.0-0.7); #Lymphocytes 1.7 thou/uL (1.20-3.40); #Monocytes 0.6 thou/uL (0.11-0.59); #Neutrophils 6.3 thou/uL (1.40-6.50); %Basophils 0.8 % (0.0-1.0); %Eosinophils 2.1 % (0.0-10.0); %Lymphocytes 19.2 % (21.0-51.0); %Monocytes 7.2 % (0.0-10.0); %Neutrophils 70.6 % (42.0-75.0); Hemoglobin 14.8 g/dL (14.0-18.0); Mean Corpuscular HGB CONC 32.7 g/dL (32.0-36.0); Mean Corpuscular Hemoglobin 31.6 pg (27.0-31.0); Mean Corpuscular Volume 96.7 fL (78.0-98.0); Mean Platelet Volume 7.2 fL (7.4-10.4); Platelet Count 179 thou/uL (130-400); Red Blood Cell (RBC) Count 4.69 mill/uL (4.70-6.10); White Blood Cell (WBC) Count 8.9 thou/uL (4.8-10.8)
[2019-05-23 11:03] LABS: INR-International Normal Ratio 0.9; Prothrombin Time 11.8 SEC (12.0-14.7)
[2019-05-23 11:05] LABS: Bacteria/HPF None Seen HPF (None Seen); Bilirubin Negative (Negative); Blood, Urine Negative (Negative); Clarity Clear (Clear); Glucose, Urine (Dipstick) Normal (Negative); Leukocyte Negative Leu/uL (Negative); Nitrite Negative (Negative); Protein, Urine (Dipstick) Negative (Neg-Trace); RBC/HPF 0-3 HPF (0-3); Squamous Epithelial None Seen HPF (0-3); Urobilinogen Normal mg/dL (Less than 2); WBC/HPF 0-3 HPF (0-3)
[2019-05-23 11:16] LABS: Anion Gap 8 mmol/L (10-20); BUN (Urea Nitrogen) 14 mg/dL (8.4-25.7); Calc. Creatinine Clearance 0 mL/min (70-130); Calcium 9.2 mg/dL (7.8-10.44); Carbon Dioxide 25 mmol/L (23-31); Chloride 109 mmol/L (98-107); Estimated GFR-MDRD 65; Glucose 87 mg/dL (80-115); Potassium 3.9 mmol/L (3.5-5.1); Sodium 138 mmol/L (136-145)
== END 2019-05-23 09:22 | disposition home or self-care (01) ==
LOC: LABBT 09:21
PROVIDERS: ATTEND Orthopaedic Surgery
DX: Z01.818 Encounter for other preprocedural examination (principal); M17.11 Unilateral primary osteoarthritis, right knee
CPT/HCPCS: 80048; 81001; 85025; 85610; 87081; 93005; 93010

== ENCOUNTER 2019-05-28 05:37 | Inpatient (IN) | payer MEDICARE ==
[2019-05-23 09:26] VITALS: BMI 31.6
[2019-05-28] MEDS ORDERED: Tranexamic Acid 1,000 MG/10 ML VIAL ONE (06:09)
[2019-05-28] MEDS ORDERED: Sodium Chloride 0.9% 100 ML ONE (06:09)
[2019-05-28] MEDS ORDERED: Vancomycin 1.5 GRAM/300 ML BAG 1.5 GM/300 ML BAG ONE (06:09)
[2019-05-28] MEDS ORDERED: Midazolam HCl 2 mg/2 ml Vial ONE (06:19)
[2019-05-28] MEDS ORDERED: Fentanyl 100 MCG/2 ML VIAL ONE ×4 (06:19→09:43)
[2019-05-28] MEDS ORDERED: Lidocaine 1% (PF) 30 ML VIAL ONE (06:19)
[2019-05-28] MEDS ORDERED: Phenylephrine HCL 10 MG/ML VIAL ONE (07:03)
[2019-05-28] MEDS ORDERED: traMADol HCl 50 MG TAB PO PRN ×2 (07:15)
[2019-05-28] MEDS ORDERED: Ondansetron PF 4 MG/2 ML Vial IVP PRN ×3 (07:15→14:14)
[2019-05-28] MEDS ORDERED: Promethazine HCl 25 MG/ML VIAL IM PRN ×4 (07:15→14:14)
[2019-05-28] MEDS ORDERED: Zolpidem Tartrate 5 MG TAB PO PRN ×3 (07:15→14:14)
[2019-05-28] MEDS ORDERED: HYDROcodone/Acetaminophen 10/325 mg Tablet PO PRN ×4 (07:15→07:18)
[2019-05-28] MEDS ORDERED: Acetaminophen 325 MG TAB PO PRN ×2 (07:15→07:18)
[2019-05-28] MEDS ORDERED: Fentanyl 100 MCG/2 ML VIAL IV PRN (07:17)
[2019-05-28] MEDS ORDERED: Fentanyl 100 MCG/2 ML VIAL SLOW IVP PRN ×2 (07:18)
[2019-05-28] MEDS ORDERED: diphenhydrAMINE 25 MG CAP PO PRN ×2 (07:18→14:14)
[2019-05-28] MEDS ORDERED: Ketorolac Tromethamine 30 MG/ML VIAL IVP PRN (07:20)
[2019-05-28] MEDS ORDERED: Promethazine HCl 25 MG/ML VIAL SLOW IVP PRN (08:06)
[2019-05-28] MEDS ORDERED: Ondansetron HCl/PF 4 MG/2 ML Vial IVP PRN (08:06)
[2019-05-28] MEDS ORDERED: Primidone 50 MG TAB PO SCH (09:00)
[2019-05-28] MEDS ORDERED: Ropivacaine 0.2% HCl/PF (40 MG/20 ML VIAL) ONE (09:38)
[2019-05-28] MEDS ORDERED: Dexamethasone 20 MG/5 ML VIAL ONE (09:38)
[2019-05-28] MEDS ORDERED: PROPOFOL 200 MG/20 ML VIAL ONE (09:38)
[2019-05-28] MEDS ORDERED: Lidocaine 1% PF 5 ML VIAL ONE (09:38)
[2019-05-28] MEDS ORDERED: Ropivacaine 0.5% HCl/PF (150 MG/30 ML VIAL) ONE (09:38)
[2019-05-28] MEDS ORDERED: Ondansetron PF 4 MG/2 ML Vial ONE (09:38)
[2019-05-28] MEDS ORDERED: HYDROcodone/Acetaminophen 10/325 mg Tablet ONE (11:09)
--- NOTE | 2019-05-28 11:27 | RAD ---
RIGHT KNEE 2 VIEWS: HISTORY: Postop. FINDINGS: There has been placement of a total knee prosthesis in good position. No fracture. IMPRESSION: Placement of total knee prosthesis. POS: [facility]
[2019-05-28] MEDS: Topiramate 100 MG TAB PO SCH ×2 (12:18→20:38)
[2019-05-28] MEDS: Sodium Chloride 0.9% 1,000 ML IV SCH ×2 (12:18→17:26)
--- NOTE | 2019-05-28 12:50 | OP ---
DATE OF PROCEDURE: 05/28/2019 PREOPERATIVE DIAGNOSIS: Degenerative joint disease, right knee. POSTOPERATIVE DIAGNOSIS: Degenerative joint disease, right knee. PROCEDURE PERFORMED: Right total knee arthroplasty using Valentina Triathlon 5 femur, 5 tibia, 9 mm CS X3 polyethylene, A32 patella. MECHANICAL APPLICATIONS ENGINEER: Nimco Ramos PA-C BLOOD LOSS: Minimal. SPECIMENS: None. DRAINS: None. COMPLICATIONS: None. TOURNIQUET TIME: 52 minutes. PROCEDURE IN DETAIL: After informed consent was obtained in the preoperative holding area, the patient was taken to the operative suite where general anesthesia was induced. Once adequate level of general anesthesia was obtained, the patient was positioned and a well-padded tourniquet was placed around the right proximal thigh. The right lower extremity was then prepped and draped in the usual sterile fashion. Prior to exsanguination, a time-out was called and all members of the surgical team agreed upon site, surgeon, and patient. The extremity was then exsanguinated and the tourniquet was raised. A midline longitudinal incision was then made directly over the patella extending 2 fingerbreadths above the superior pole of the patella and 2 fingerbreadths inferior to the inferior patellar pole of the patella. Deeper subcutaneous layers were dissected sharply and local bleeding was controlled with Bovie electrocautery. A quad tendon longitudinal split was then made sharply and a median parapatellar arthrotomy was carried out both sharp and with Bovie electrocautery, carried down to 1 fingerbreadth medial to the tibial tubercle. The knee was then placed into flexion and the patella was everted nicely, and a copious fat pad ectomy was performed allowing for greater exposure of the tibia. The computer-assisted distal femoral fiducial was then placed and pinned firmly, and the distal femoral cutting guide was pinned firmly into place. The oscillating saw was then used to remove the appropriate amount of bone. The 4-in-1 cutting block was then placed on the distal femur and the oscillating saw was used to remove the appropriate amount of bone off the anterior, posterior, and chamfer cuts. After completion of bone cuts, the anterior cruciate ligament was resected sharply and the posterior cruciate ligament retractor was placed and the tibia was subluxed for better exposure. Partial meniscectomies were carried out, and the tibial computer-assisted fiducial was pinned, and the cutting guide was placed. Oscillating saw was then used to remove the bone, with Hohmann retractors used to take care and protect the collateral ligaments. After the tibial resection was performed, a laminar funeral home location manager was placed in between the freshened bone cuts. The knee placed at 90 degrees and further bilateral meniscectomies were carried out, and the curved osteotome and curettage were used to remove any excess bone spurs in the posterior compartment. The trial femoral component, tibial baseplate were placed with the appropriate polyethylene trial insert with an appropriate polyethylene spacer and patellar button. The knee was taken through full range of motion with flexion and extension from 0 to 90 degrees and patellar broach squarely in the trochlea without any squinting or subluxation noted. The knee was also stable to varus and valgus stressing at 0, 15, 45, and 90 degrees of flexion. The drawer was negative. All trial components were then removed and the keel punch was used to provide the appropriate defect in the tibia with a mallet. The freshened bone cuts were copiously irrigated with pulsatile lavage of about 1.5 L to remove all excess debris. The freshened bone cuts were then dried with suction and lap sponge. The knee was placed in flexion and retractors were placed to provide access to all bone cuts. Tobramycin-impregnated methyl methacrylate cement was then placed on the freshened bone cuts and implants which were malleted firmly into place. Curettage and [place] elevators were used to remove any excess bone cement. The knee was placed into full extension and the patellar button was placed under compression, and the cement was allowed to cure. Once completed, the components were again taken through full range of motion and copious irrigation of the knee was carried out with another liter of normal saline. All components were inspected fully with full range of motion and varus and valgus stressing. There was no laxity noted and full extension was observed clinically. Primary closure was accomplished with #2 interrupted Vicryl stitch of the arthrotomy defect. This was oversewn with a #2 running Quill barbed stitch. The gravitational platelet system was then injected into the arthrotomy prior to closure. The subcutaneous layer was then closed with a running 0 barbed Monocryl stitch and skin closure accomplished with a running subcuticular 3-0 Monocryl barbed Quill stitch and augmented with cement on the skin. Tourniquet was lowered. Good spontaneous return of distal pulses was noted clinically and a sterile dressing was applied to the incision. The procedure was terminated without any complications. The patient was awakened in the operative suite, and the patient was taken to the recovery room in stable condition. Job ID: [id number]
[2019-05-28] MEDS: CEFAZOLIN 2 GM in Premix Bag 1 BAG IVPB SCH ×2 (13:58→23:30)
[2019-05-28] MEDS: Venlafaxine HCl XR 150 MG CAP PO SCH (14:01)
[2019-05-28] MEDS: Losartan 25 MG TAB PO SCH (14:07)
[2019-05-28] MEDS ORDERED: diphenhydrAMINE 50 MG/ML VIAL IVP PRN (14:14)
[2019-05-28] MEDS ORDERED: Naloxone HCl 0.4 mg/ml Vial IV PRN (14:14)
[2019-05-28] MEDS ORDERED: diphenhydrAMINE 50 MG/ML VIAL IM PRN (14:14)
[2019-05-28] MEDS ORDERED: Communication Order-Pharmacy FS SCH (14:15)
[2019-05-28] MEDS: fentaNYL Citrate/PF 2,000 MCG in Sodium Chloride 0.9% 60 ML IV PRN (16:29)
--- NOTE | 2019-05-28 16:35 | PDOC.HOSPP ---
- Subjective Encounter Date: 05/28/19 Encounter Time: 15:10 Subjective: Patient seen and examined. No new complaints. s/p right TKR. Consulted for medical management. - Objective Vital Signs & Weight: Vital Signs (12 hours) Temp Pulse Resp BP Pulse Ox 05/28/19 16:00 99.2 F 114 H 18 101/66 95 Weight Weight 227 lb Additional Labs: Pre op labs unremarkable. EKG Reviewed by me: Yes (05/23/2019: NSR 75 bpm) Hospitalist ROS - Review of Systems Constitutional: reports: fever, chills Cardiovascular: reports: chest pain, palpitations, edema Gastrointestinal: reports: nausea, vomiting, abdominal pain - Medication Medications: Active Medications Generic Name Dose Route Start Last Admin Trade Name Freq PRN Reason Stop Dose Admin Sodium Chloride 1,000 mls @ 100 mls/hr 05/28/19 07:30 05/28/19 12:18 Normal Saline 0.9% IV Not Given .Q10H ZAIRE Cefazolin Sodium/Dextrose 2 gm 50 mls @ 100 mls/hr 05/28/19 14:00 05/28/19 13 :58 / Device IVPB 05/29/19 06:29 50 mls Q8HR ZAIRE Administration Losartan Potassium 100 mg 05/28/19 09:00 05/28/19 14:07 Cozaar PO 100 mg QAM ZAIRE Administration Pantoprazole Sodium 40 mg 05/28/19 09:00 05/28/19 14:06 Protonix PO 40 mg DAILY ZAIRE Administration Topiramate 100 mg 05/28/19 09:00 05/28/19 12:18 Topamax PO Not Given BID ZAIRE Venlafaxine HCl 150 mg 05/28/19 09:00 05/28/19 14:01 Effexor Xr PO 150 mg DAILY ZAIRE Administration - Exam General Appearance: NAD, awake alert Heart: RRR, no murmur, no gallops, no rubs Respiratory: CTAB, no wheezes, no rales, no ronchi Gastrointestinal: soft, non-tender, no guarding, no rigidity, diminished bowl sounds Psychiatric: normal affect, A&O x 3 Hosp A/P - Plan Impression: s/p Right TKR with Veazy HTN HLD GERD H/O seizures Plan: Continue IVF Continue GI/DVT prophylaxis PT/OT per [facility] protocol Nerve block in place per anesthesia Restart home medications
[2019-05-28] MEDS ORDERED: Ketorolac Tromethamine 30 MG/ML VIAL IVP SCH (18:00)
[2019-05-28] MEDS ORDERED: Vancomycin HCl 1.5 GM in Sodium Chloride 0.9% 250 ML 300 ML IVPB SCH (20:00)
[2019-05-28] MEDS: Mirtazapine 30 MG TAB PO SCH (20:38)
[2019-05-28] MEDS: Rosuvastatin 10 MG TAB PO SCH (20:38)
[2019-05-29] MEDS: Sodium Chloride 0.9% 1,000 ML IV SCH ×2 (02:44→14:39)
[2019-05-29] MEDS: CEFAZOLIN 2 GM in Premix Bag 1 BAG IVPB SCH (05:07)
[2019-05-29 05:35] LABS: Mean Corpuscular Hemoglobin 30.5 pg (27.0-31.0); Mean Corpuscular Volume 95.2 fL (78.0-98.0); Mean Platelet Volume 6.8 fL (7.4-10.4); Platelet Count 188 thou/uL (130-400); RBC Distribution Width 12.9 % (11.5-14.5); Red Blood Cell (RBC) Count 3.94 mill/uL (4.70-6.10)
[2019-05-29] MEDS ORDERED: Enoxaparin Sodium 40 MG/0.4 ML SYRINGE SC SCH (06:00)
[2019-05-29] MEDS: Topiramate 100 MG TAB PO SCH ×2 (09:03→20:32)
[2019-05-29] MEDS: Ferrous Gluconate 324 MG TAB PO SCH ×2 (09:03→17:13)
[2019-05-29] MEDS: Multivitamin W/ Minerals 1 TAB PO SCH (09:03)
[2019-05-29] MEDS: Venlafaxine HCl XR 150 MG CAP PO SCH (09:03)
[2019-05-29] MEDS: Losartan 25 MG TAB PO SCH (09:03)
[2019-05-29] MEDS: Senokot S 8.6-50 MG TAB PO SCH ×2 (09:03→20:32)
[2019-05-29] MEDS: Ropivacaine HCl/PF 250 ML in Premix Bag 1 BAG NERVE BLCK SCH (09:10)
[2019-05-29] MEDS: Rosuvastatin 10 MG TAB PO SCH (20:32)
[2019-05-29] MEDS: fentaNYL Citrate/PF 2,000 MCG in Sodium Chloride 0.9% 60 ML IV PRN (22:04)
[2019-05-29] MEDS: Mirtazapine 30 MG TAB PO SCH (22:08)
--- NOTE | 2019-05-29 23:29 | PDOC.HOSPP ---
- Subjective Encounter Date: 05/29/19 Encounter Time: 08:00 Subjective: Patient seen and examined for med mngt. No CP/SOB. Pain controlled. No new complaints. No overnight events - Objective Vital Signs & Weight: Vital Signs (12 hours) Temp Pulse Resp BP Pulse Ox 05/29/19 23:06 98.6 F 107 H 18 134/86 96 05/29/19 20:00 98.4 F 98 16 121/76 94 L 05/29/19 15:32 98.2 F 108 H 20 130/78 96 Weight Admit Weight 227 lb Weight 227 lb I&O: 05/28/19 05/29/19 05/30/19 06:59 06:59 06:59 Intake Total 2956 1560 Output Total 1900 900 Balance 1056 660 Result Diagrams: 05/30/19 05:32 EKG Reviewed by me: Yes (SR) Hospitalist ROS - Review of Systems Respiratory: denies: cough, dry, shortness of breath, hemoptysis, SOB with excertion, pleuritic pain, sputum, wheezing, other Cardiovascular: denies: chest pain, palpitations, orthopnea, paroxysmal noc. dyspnea, edema, light headedness, other Gastrointestinal: denies: nausea, vomiting, abdominal pain, diarrhea, constipation, melena, hematochezia, other - Medication Medications: Active Medications Generic Name Dose Route Start Last Admin Trade Name Freq PRN Reason Stop Dose Admin Ferrous Gluconate 324 mg 05/29/19 08:00 05/29/19 17:13 Fergon PO 324 mg BID-WM ZAIRE Administration Ropivacaine 250 ml/ Device 250 mls @ 10 mls/hr 05/28/19 07:15 05/29/19 09:10 NERVE BLCK 05/31/19 07:14 250 mls INF ZAIRE Administration Sodium Chloride 1,000 mls @ 100 mls/hr 05/28/19 07:30 05/29/19 14:39 Normal Saline 0.9% IV Not Given .Q10H ZAIRE Fentanyl Citrate 2,000 mcg/ 100 mls @ 0 mls/hr 05/28/19 14:14 05/29/19 22:04 Sodium Chloride IV 100 mls INF PRN Administration Pain As Directed Iron/Minerals/Multivitamins 1 tab 05/29/19 09:00 05/29/19 09:03 Theragran M PO 1 tab DAILY ZAIRE Administration Losartan Potassium 100 mg 05/28/19 09:00 05/29/19 09:03 Cozaar PO 100 mg QAM ZAIRE Administration Mirtazapine 30 mg 05/28/19 21:00 05/29/19 22:08 Remeron PO 30 mg HS ZAIRE Administration Pantoprazole Sodium 40 mg 05/28/19 09:00 05/29/19 09:03 Protonix PO 40 mg DAILY ZAIRE Administration Rosuvastatin Calcium 10 mg 05/28/19 21:00 05/29/19 20:32 Crestor PO 10 mg HS ZAIRE Administration Senna/Docusate Sodium 2 tab 05/29/19 09:00 05/29/19 20:32 Senokot S PO 2 tab BID ZAIRE Administration Topiramate 100 mg 05/28/19 09:00 05/29/19 20:32 Topamax PO 100 mg BID ZAIRE Administration Venlafaxine HCl 150 mg 05/28/19 09:00 05/29/19 09:03 Effexor Xr PO 150 mg DAILY ZAIRE Administration - Exam Heart: RRR, no gallops Respiratory: CTAB, no rales Gastrointestinal: non-tender, non-distended, normal bowel sounds Extremities: no clubbing Hosp A/P - Plan DVT proph w/SCDs HTN HLD GERD H/O seizures Obesity BMI 31.7 Plan: Cont Losartan Cont Topamax Cont other meds as above Cont PT/OT
--- NOTE | 2019-05-30 00:15 | CON ---
DATE OF CONSULTATION: 05/29/2019 REASON FOR CONSULT: The patient is requesting to see me for treatment of urinary incontinence, surgical intervention. HISTORY OF PRESENT ILLNESS: Mr. Beaulieu is a 68-year-old male with history of elevated PSA, whom I had seen back initially in March 2018. The patient has multiple comorbidities, subsequently diagnosed with prostate cancer, clinically significant. I informed him that given his body habitus, comorbidities, he is high risk for surgical intervention, therefore was referred to a tertiary center, in which he underwent robotic prostatectomy, bladder neck suspension, lymph node dissection with extensive lysis of adhesions. Final pathology demonstrates Jerilyn score 4+3, with SV invasion. He does have stress urinary incontinence, which was concerning to him. He has tried medical management without success. I last saw him in January 2019, and has an appointment with me to follow up regarding his prostate cancer surveillance. His last PSA has fany to less than 0.02, which has been reassuring, I had informed him that he will require adjuvant radiation therapy to locally invasive disease. However, has not seen Radiation Oncology per our last visit. He was advised regarding followup with me with surveillance PSA as I had wanted to see him after Radiation Oncology referral, however, has canceled his last appointment with me. He has been rescheduled to July 29 with recheck PSA. He is currently admitted, underwent total knee replacement by Dr. Waller. He informed the Orthopedic Service that he would like to address his stress incontinence on this admission. I requested to see me. PAST MEDICAL HISTORY: History of seizures, hypertension, hyperlipidemia, right lower extremity radiculopathy, history of tobacco abuse, history of left lower extremity DVT in 2015, history of osteomyelitis, and history of prostate cancer. PAST SURGICAL HISTORY: 1. Left femur and left ankle repair. 2. Left knee fusion. 3. L4, L5, L6 fusion. 4. Removal of hardware of the lumbar spine in 1995. 5. History of previous biopsy in 1997. 6. Cystoscopy in 1999 by another urologist. 7. History of spinal cord stimulator by Dr. Mancera in May 2018. 8. Prior cystoscopy on June 11, 2018, demonstrated wide caliber nonobstructing bulbar stricture. Prostate volume 33 g. He underwent robotic prostatectomy on October 19, 2018; bladder suspension; bilateral pelvic lymph node dissection; extensive lysis of adhesions by Dr. Awan. SOCIAL HISTORY: Positive for smoking, he is . ALLERGIES: ALLERGIC TO LATEX, NEOSPORIN, ASPIRIN, AND GABAPENTIN. REVIEW OF SYSTEMS: A 10-point review of systems as above, otherwise noncontributory. PHYSICAL EXAMINATION: VITAL SIGNS: Stable. He is afebrile. He has been urinating in the urinal and diapers, 1900 mL of clear yellow urine. General no acute distress HEENT: Grossly unremarkable. HEART: Regular rate. LUNGS: Clear Abdomen: Morbidly obese, protuberant. : Demonstrates he is in diapers with yellow urine in the diaper. EXTREMITIES: Demonstrate right knee dressing consistent with recent knee surgery. Psychiatric appears appropriate PERTINENT LABORATORY DATA: White count 11, hemoglobin 12. Coagulation profile is within normal limits. Creatinine 1.2. UA on May 23 is grossly unremarkable for hematuria or infection. Last PSA of record is 0.02 fany, in January 2019. IMPRESSION AND PLAN: Mr. Beaulieu is a 68-year-old male with multiple comorbidities, history of deep venous thrombosis, incisional hernia with mesh with pathologic T3b N0 stage IIIB with SV involvement, [place] score 4+3 prostate cancer with margin negative disease. He does have high risk prostate cancer, which will most likely require adjuvant radiation therapy. I will recheck a PSA on this admission as he has been noncompliant, he did not see me on his last appointment scheduled for April. I had informed the patient that he should see me as scheduled on July 29 with PSA as previously advised. May use PureWick as he is incontinent. I informed him that it is not work-up for surgical treatment options for post prostatectomy incontinence is not indicated in the immediate postop period of recent knee replacement. Moreover, will need surgical clearance from orthopedic service to proceed with intervention, as there is risk of infecting his knee prosthesis. he verbalizes understanding and states that he will see me as planned in July with cancer protocol labs. Job ID: [id number] [facility]
[2019-05-30 05:46] LABS: Hemoglobin 12.3 g/dL (14.0-18.0); Mean Corpuscular HGB CONC 31.7 g/dL (32.0-36.0); Mean Corpuscular Hemoglobin 30.5 pg (27.0-31.0); Mean Corpuscular Volume 96.2 fL (78.0-98.0); Mean Platelet Volume 6.8 fL (7.4-10.4); Platelet Count 187 thou/uL (130-400); RBC Distribution Width 12.8 % (11.5-14.5); Red Blood Cell (RBC) Count 4.04 mill/uL (4.70-6.10); White Blood Cell (WBC) Count 9.9 thou/uL (4.8-10.8)
[2019-05-30] MEDS: Sodium Chloride 0.9% 1,000 ML IV SCH ×3 (06:44→22:21)
--- NOTE | 2019-05-30 07:53 | PRG ---
DATE OF SERVICE: 05/30/2019 SUBJECTIVE: The patient without complaints, urine output at bedside clear. OBJECTIVE: VITAL SIGNS: Stable. He is afebrile. I's and O's; 1500 in, 900 out. ABDOMEN: Morbidly obese, protuberant. No rigidity. No rebound. PSA, which I ordered yesterday demonstrates fany of less than 0.02, nondetectable. IMPRESSION AND PLAN: 1. A 68-year-old male with multiple medical comorbidities, morbid obesity with history of pathologic T3b N0 stage IIB Jerilyn score 4 + 3 prostate cancer with margin negative disease. Status post robotic prostatectomy in [place] by Dr. Awan with extensive lysis of adhesions. 2. High-risk disease, he has not seen Dr. Herron as I previously advised, one he convalescence from his knee surgery after rehab, I will re-initiate consult with Radiation Oncology. He has been fully informed regarding high risk prostate cancer, would recommend Radiation Oncology assessment at a later point. His PSA on this admission fany, which is reassuring, but he has high risk for recurrence. 3. Postprostatectomy incontinence. I informed the patient that surgical intervention for incontinence is not warranted at this time due to recent knee replacement. The patient verbalizes understanding. He has appointment with me as previous in chart. Questions encouraged and answered. will sign off. Call if any questions or concerns. Job ID: [id number] [facility]
[2019-05-30] MEDS: Ferrous Gluconate 324 MG TAB PO SCH ×2 (08:42→17:15)
[2019-05-30] MEDS: Senokot S 8.6-50 MG TAB PO SCH ×2 (08:42→20:35)
[2019-05-30] MEDS: Multivitamin W/ Minerals 1 TAB PO SCH (08:42)
[2019-05-30] MEDS: Losartan 25 MG TAB PO SCH (08:43)
[2019-05-30] MEDS: Topiramate 100 MG TAB PO SCH ×2 (08:43→20:35)
[2019-05-30] MEDS: Venlafaxine HCl XR 150 MG CAP PO SCH (08:43)
[2019-05-30] MEDS: Enoxaparin Sodium 40 MG/0.4 ML SYRINGE SC SCH (08:44)
[2019-05-30] MEDS ORDERED: Polyethylene Glycol 3350 17 GM Packet PO PRN (17:11)
[2019-05-30] MEDS: fentaNYL Citrate/PF 2,000 MCG in Sodium Chloride 0.9% 60 ML IV PRN (19:42)
[2019-05-30 19:56] LABS: Troponin I Less than 0.010 ng/mL (< 0.028)
[2019-05-30] MEDS: Mirtazapine 30 MG TAB PO SCH (20:35)
[2019-05-30] MEDS: Rosuvastatin 10 MG TAB PO SCH (20:35)
[2019-05-30 22:13] LABS: Troponin I Less than 0.010 ng/mL (< 0.028)
[2019-05-30] MEDS: Ropivacaine HCl/PF 250 ML in Premix Bag 1 BAG NERVE BLCK SCH (23:14)
--- NOTE | 2019-05-31 00:02 | PDOC.HOSPP ---
- Subjective Encounter Date: 05/30/19 Encounter Time: 18:30 Subjective: Patient seen and examined for med mngt. Intermittent CP. No N/V or diaphoresis. No other complaints. No overnight events - Objective Vital Signs & Weight: Vital Signs (12 hours) Temp Pulse Resp BP BP Pulse Ox 05/30/19 23:19 99.2 F 102 H 16 102/69 96 05/30/19 19:41 98.4 F 116 H 18 111/74 94 L 05/30/19 16:14 111 H 20 106/71 94 L 05/30/19 14:45 99.5 F 116 H 16 131/69 94 L 05/30/19 12:35 99.3 F 119 H 14 128/78 94 L Weight Admit Weight 227 lb Weight 227 lb I&O: 05/29/19 05/30/19 05/31/19 06:59 06:59 06:59 Intake Total 2956 1560 840 Output Total 1900 900 400 Balance 1056 660 440 Result Diagrams: 05/30/19 05:32 EKG Reviewed by me: Yes (SR) Hospitalist ROS - Review of Systems Cardiovascular: reports: chest pain. denies: palpitations, orthopnea, paroxysmal noc. dyspnea, edema, light headedness, other Gastrointestinal: denies: nausea, vomiting, abdominal pain, diarrhea, constipation, melena, hematochezia, other Genitourinary: denies: dysuria, frequency, incontinence, hematuria, retention, other - Medication Medications: Active Medications Generic Name Dose Route Start Last Admin Trade Name Freq PRN Reason Stop Dose Admin Diphenhydramine HCl 25 mg 05/28/19 07:18 05/30/19 22:21 Benadryl PO 25 mg Q6H PRN Administration Itching Diphenhydramine HCl 25 mg 05/28/19 14:14 05/30/19 23:37 Benadryl IVP 25 mg Q3H PRN Administration Itching Enoxaparin Sodium 40 mg 05/30/19 09:00 05/30/19 08:44 Lovenox SC 40 mg 0900 ZAIRE Administration Ferrous Gluconate 324 mg 05/29/19 08:00 05/30/19 17:15 Fergon PO 324 mg BID-WM ZAIRE Administration Ropivacaine 250 ml/ Device 250 mls @ 10 mls/hr 05/28/19 07:15 05/30/19 23:14 NERVE BLCK 05/31/19 07:14 250 mls INF ZAIRE Administration Sodium Chloride 1,000 mls @ 100 mls/hr 05/28/19 07:30 05/30/19 22:21 Normal Saline 0.9% IV 1,000 mls .Q10H ZAIRE Administration Fentanyl Citrate 2,000 mcg/ 100 mls @ 0 mls/hr 05/28/19 14:14 05/30/19 19:42 Sodium Chloride IV 100 mls INF PRN Administration Pain As Directed Iron/Minerals/Multivitamins 1 tab 05/29/19 09:00 05/30/19 08:42 Theragran M PO 1 tab DAILY ZAIRE Administration Losartan Potassium 100 mg 05/28/19 09:00 05/30/19 08:43 Cozaar PO Not Given QAM ZAIRE Mirtazapine 30 mg 05/28/19 21:00 05/30/19 20:35 Remeron PO 30 mg HS ZAIRE Administration Pantoprazole Sodium 40 mg 05/28/19 09:00 05/30/19 08:43 Protonix PO 40 mg DAILY ZAIRE Administration Polyethylene Glycol 17 gm 05/30/19 17:11 05/30/19 17:15 Miralax PO 17 gm BIDPRN PRN Administration CONSTIPATION Rosuvastatin Calcium 10 mg 05/28/19 21:00 05/30/19 20:35 Crestor PO 10 mg HS ZAIRE Administration Senna/Docusate Sodium 2 tab 05/29/19 09:00 05/30/19 20:35 Senokot S PO 2 tab BID ZAIRE Administration Topiramate 100 mg 05/28/19 09:00 05/30/19 20:35 Topamax PO 100 mg BID ZAIRE Administration Venlafaxine HCl 150 mg 05/28/19 09:00 05/30/19 08:43 Effexor Xr PO 150 mg DAILY ZAIRE Administration - Exam General Appearance: NAD Neck: supple, no JVD Heart: RRR, no gallops Respiratory: no wheezes, no rales, no ronchi Gastrointestinal: non-tender, non-distended, normal bowel sounds Extremities: no cyanosis Neurological: no new deficit Hosp A/P - Plan DVT proph w/SCDs Atypical CP - prob due to anxiety HTN HLD GERD H/O seizures Obesity BMI 31.7 Plan: EKG reviewed check troponins Cont Losartan/Topamax Cont other meds as above Cont PT/OT will follow
[2019-05-31] MEDS: Sodium Chloride 0.9% 1,000 ML IV SCH (06:35)
[2019-05-31 08:03] VITALS: TEMP 98.6
[2019-05-31] MEDS: Venlafaxine HCl XR 150 MG CAP PO SCH (08:13)
[2019-05-31] MEDS: Losartan 25 MG TAB PO SCH (08:13)
[2019-05-31] MEDS: Topiramate 100 MG TAB PO SCH (08:14)
[2019-05-31] MEDS: Ferrous Gluconate 324 MG TAB PO SCH (08:14)
[2019-05-31] MEDS: Multivitamin W/ Minerals 1 TAB PO SCH (08:14)
[2019-05-31] MEDS: Senokot S 8.6-50 MG TAB PO SCH (08:14)
[2019-05-31] MEDS: Enoxaparin Sodium 40 MG/0.4 ML SYRINGE SC SCH (08:14)
[2019-05-31] MEDS ORDERED: traMADol HCl 50 MG TAB PO PRN ×2 (11:09)
[2019-05-31] MEDS ORDERED: HYDROcodone/Acetaminophen 10/325 mg Tablet PO PRN ×2 (11:10)
[2019-05-31 11:11] VITALS: BP 131/76
== END 2019-05-31 16:25 | DRG 470 ==
LOC: SDC 05:37 → SJJU 05:40
PROVIDERS: ADMIT Orthopaedic Surgery; ATTEND Orthopaedic Surgery
PROC: 0SRC0J9 Replacement of Right Knee Joint with Synthetic Substitute, Cemented, Open Approach (ICD-10-PCS; principal; 2019-05-28)
DX: M17.11 Unilateral primary osteoarthritis, right knee (principal); I10 Essential (primary) hypertension; E78.5 Hyperlipidemia, unspecified; G40.909 Epilepsy, unspecified, not intractable, without status epilepticus; G62.9 Polyneuropathy, unspecified; J30.2 Other seasonal allergic rhinitis; H81.09 Meniere's disease, unspecified ear; E66.9 Obesity, unspecified; F41.9 Anxiety disorder, unspecified; K21.9 Gastro-esophageal reflux disease without esophagitis; R32 Unspecified urinary incontinence; Z87.891 Personal history of nicotine dependence; Z86.718 Personal history of other venous thrombosis and embolism; Z68.31 Body mass index [BMI] 31.0-31.9, adult; Z98.1 Arthrodesis status; Z85.46 Personal history of malignant neoplasm of prostate; Z79.899 Other long term (current) drug therapy; Z88.8 Allergy status to other drugs, medicaments and biological substances; Z88.0 Allergy status to penicillin; Z91.040 Latex allergy status
CPT/HCPCS: 36415; 84153; 84484; 85027; 93005; 93010; C1713; C1776; J0690; J1100; J1200; J1650; J2001; J2250; J2370; J2405; J2704; J2795; J3010; J3370; J3490; J7050; Q0163

== ENCOUNTER 2019-06-28 12:12 | Emergency (ER) | payer MEDICARE ==
[2019-06-28 13:23] LABS: #Eosinphils 0.3 thou/uL (0.0-0.7); #Lymphocytes 1.5 thou/uL (1.20-3.40); #Monocytes 0.7 thou/uL (0.11-0.59); #Neutrophils 5.7 thou/uL (1.40-6.50); %Basophils 0.6 % (0.0-1.0); %Eosinophils 3.2 % (0.0-10.0); %Monocytes 8.5 % (0.0-10.0); %Neutrophils 69.6 % (42.0-75.0); Hemoglobin 12.8 g/dL (14.0-18.0); Mean Corpuscular HGB CONC 33.3 g/dL (32.0-36.0); Mean Corpuscular Hemoglobin 31.8 pg (27.0-31.0); Mean Corpuscular Volume 95.5 fL (78.0-98.0); Mean Platelet Volume 6.9 fL (7.4-10.4); Platelet Count 211 thou/uL (130-400); RBC Distribution Width 12.6 % (11.5-14.5); Red Blood Cell (RBC) Count 4.02 mill/uL (4.70-6.10); White Blood Cell (WBC) Count 8.2 thou/uL (4.8-10.8)
[2019-06-28 13:46] LABS: ALT (SGPT) 25 U/L (8-55); AST (SGOT) 18 U/L (5-34); Albumin 3.9 g/dL (3.4-4.8); Alkaline Phosphatase 101 U/L (40-110); Anion Gap 12 mmol/L (10-20); BUN (Urea Nitrogen) 15 mg/dL (8.4-25.7); Bilirubin, Total 0.4 mg/dL (0.2-1.2); Calc. Creatinine Clearance 0 mL/min (70-130); Carbon Dioxide 19 mmol/L (23-31); Chloride 115 mmol/L (98-107); Estimated GFR-MDRD 68; Glucose 85 mg/dL (80-115); Potassium 4.1 mmol/L (3.5-5.1); Protein, Total 6.9 g/dL (5.8-8.1); Sodium 142 mmol/L (136-145)
--- NOTE | 2019-06-28 14:06 | ULT ---
EXAM: Right lower extremity venous Doppler HISTORY: Right knee replacement on 05/28/2019. Patient has right lower extremity pain and swelling. FINDINGS: Grayscale, color-flow, Doppler evaluation, spectral analysis of the right lower extremity venous stru ctures is performed with 2-D imaging. The right common femoral, superficial femoral, popliteal, posterior tibial, proximal greater saphenous and profunda femoral veins are imaged. There is normal luminal compressibility, flow, and augmentation in the visualized deep venous structu res of the right lower extremity. Mild subcutaneous edema is seen at the level of the posterior right calf. IMPRESSION: 1. No evidence of a deep vein thrombosis in the visualized deep venous structures right lower extremi ty. 2. Mild right lower extremity edema.
== END 2019-06-28 15:53 | disposition home or self-care (01) ==
LOC: ERS 12:12
DX: M25.561 Pain in right knee (principal); E78.5 Hyperlipidemia, unspecified; E78.00 Pure hypercholesterolemia, unspecified; I10 Essential (primary) hypertension; M86.9 Osteomyelitis, unspecified; F41.9 Anxiety disorder, unspecified; F32.9 Major depressive disorder, single episode, unspecified
CPT/HCPCS: 36415; 80053; 85025; 85652; 86140

== ENCOUNTER 2019-06-29 01:35 | Emergency (ER) | payer MEDICARE ==
--- NOTE | 2019-06-29 08:03 | RAD ---
Exam:Right tibia-fibula 2 views HISTORY: Pain. Fall. COMPARISON: None FINDINGS: Right knee arthroplasty appears to be uncomplicated. Possible right knee joint effusion. No fracture, cortical irregularity or periosteal reaction. Minimal atherosclerosis. IMPRESSION: 1. No fracture. 2. Joint effusion at the level of the right knee. Correlate clinically. CODE T
--- NOTE | 2019-06-29 08:10 | RAD ---
Exam:Right knee 4 views HISTORY: Altercation. Fall. Pain. Trauma. COMPARISON: None FINDINGS: Uncomplicated right knee arthroplasty. There is a suprapatellar effusion. No fracture. IMPRESSION: 1. Uncomplicated right knee arthroplasty. 2. No fracture. 3. Joint effusion, nonspecific. Correlate clinically.
== END 2019-06-29 02:40 ==
LOC: ERS 01:35
DX: T81.31XA Disruption of external operation (surgical) wound, not elsewhere classified, initial encounter (principal); E78.5 Hyperlipidemia, unspecified; E78.00 Pure hypercholesterolemia, unspecified; I10 Essential (primary) hypertension; M86.9 Osteomyelitis, unspecified; F41.9 Anxiety disorder, unspecified; F32.9 Major depressive disorder, single episode, unspecified; Z87.891 Personal history of nicotine dependence

== ENCOUNTER 2019-08-05 12:46 | Outpatient (CLI) | payer MEDICARE ==
--- NOTE | 2019-08-05 13:18 | ULT ---
ULTRASOUND DOPPLER DUPLEX VENOUS RIGHT LOWER EXTREMITY: DATE: 08/05/2019 HISTORY: 68-year-old male with right lower extremity edema. TECHNIQUE: Grayscale, color-flow, and spectral analysis, of major veins of right lower extremity. FINDINGS: There is demonstration of blood flow with normal compressibility, of the right common femoral, profun da femoral, greater saphenous, femoral, popliteal, and posterior tibial, veins. There is soft tissue edema at the ankle. Enlarged lymph nodes are noted at the proximal aspect of the thigh. IMPRESSION: 1. No deep venous thrombosis of right lower extremity. 2. Soft tissue edema at the right ankle. 3. Enlarged lymph nodes at right upper thigh.
== END 2019-08-05 12:47 | disposition home or self-care (01) ==
LOC: BICULT 12:46
PROVIDERS: ATTEND Family Medicine
DX: M79.604 Pain in right leg (principal); R60.0 Localized edema; R59.0 Localized enlarged lymph nodes

== ENCOUNTER 2019-09-20 10:03 | Outpatient (CLI) | payer MEDICARE ==
--- NOTE | 2019-09-20 14:20 | RAD ---
THREE VIEWS OF THE CERVICAL SPINE: 09/20/19 COMPARISON: None. HISTORY: Radicular neck pain. FINDINGS: Lateral views of the cervical spine were performed in neutral, flexion and extension. The vertebral b odies demonstrate normal height and alignment without fracture or subluxation. There is intervertebra l disc space narrowing in the lower cervical spine. Alignment is unchanged with flexion and extensio n. No prevertebral soft tissue swelling is seen. IMPRESSION: Degenerative changes of the cervical spine with unchanged alignment with bending. POS: CHRISTIANNEA
== END 2019-09-20 10:04 | disposition home or self-care (01) ==
LOC: NM 10:03 → RAD 10:04
PROVIDERS: ATTEND Urology
DX: M47.22 Other spondylosis with radiculopathy, cervical region (principal)
CPT/HCPCS: 72040

== ENCOUNTER 2019-10-02 11:23 | Outpatient (CLI) | payer MEDICARE ==
--- NOTE | 2019-10-02 13:47 | CT ---
CT OF THE ABDOMEN AND PELVIS WITHOUT IV CONTRAST INDICATION: Hematuria and history of prostate cancer COMPARISON: CT the abdomen and pelvis with and without contrast dated May 30, 2018 FINDINGS: The lack of IV contrast limits evaluation of the solid organs of the abdomen and pelvis. ABDOMEN: Lung bases: Clear Liver: No focal lesion. Gallbladder: Normal appearing. Pancreas: Normal. Adrenal glands: Normal. Spleen: Normal. Kidneys and ureters: Bilateral renal cysts are stable. No renal or ureteral calculus is evident. No h ydronephrosis is demonstrated. Vasculature: There is moderate vascular Lymph nodes:No lymphadenopathy. Free fluid in abdomen:No free fluid is evident. PELVIS: Small and large bowel: There is scattered colonic diverticula. There is a moderate amount of retained stool within the colon. Appendix:Normal Bladder: Normal. Rectal and perirectal soft tissues:Normal. Reproductive structures: Surgically absent Free fluid in pelvis: There is a 2.9 cm fluid collection seen adjacent to the left iliopsoas tendon, new from the prior exam. Lymphadenopathy pelvis: There are a few shotty appearing lymph nodes seen within the left inguinal re gion. Osseous structures: There is stable compression abnormality with vertebral plasty change involving L1 . Dorsal column stimulator is projecting up to T8. There is grade 1 anterolisthesis of L4 on L5. There is scattered degenerative and osteoarthritic changes. Soft tissues:There is a periumbilical hernia containing unobstructed loops of small bowel. IMPRESSION: 1. No renal or ureteral calculus. 2. Bilateral renal cysts. 3. New 2.9 cm fluid collection adjacent to the left iliopsoas tendon may reflect small focus of left iliopsoas bursitis. Recommend correlation with the clinical examination. 4. Postprocedural change of a prostatectomy. Postprocedural change of an L1 vertebroplasty. Dorsal co lumn stimulator
--- NOTE | 2019-10-02 14:03 | CT ---
Exam: CT cervical spine without contrast HISTORY: Severe chronic neck pain radiating to both shoulders. COMPARISON: None FINDINGS: No craniocervical dissociation. Appropriate alignment of the lateral masses of C1 and C2. Intact odon toid process Appropriate alignment of the facets. Straightening of normal cervical lordosis is presumed to be positional Spondylolisthesis: 4.7 mm of anterolisthesis of C5 upon C6 and 3.8 mm of anterolisthesis of C7 upon T1 Soft tissue neck structures: No mass, lymphadenopathy or hematoma. No prevertebral soft tissue swelli ng. Upper mediastinum and lung apices: Unremarkable Central spinal canal: C2-C3: No high-grade central canal stenosis or high-grade neural foraminal narrowing C3-C4: Broad-based disc-osteophyte complex with moderate central canal stenosis. Moderate bilateral n eural foraminal narrowing C4-C5: Broad-based disc-osteophyte complex with at least moderate central canal stenosis. Moderate se cedric bilateral neural foraminal narrowing C5-C6: Broad-based disc-osteophyte complex with moderate central canal stenosis. Moderate bilateral n eural foraminal narrowing C6-C7: Severe loss of disc space height. Broad-based disc osteophyte complex with moderate central ca nal stenosis. Severe bilateral neural foraminal narrowing C7-T1: No high-grade central canal stenosis. Mild bilateral neural foraminal narrowing. Vertebral bodies: Cervical spine vertebral body height is maintained. No fracture. IMPRESSION: 1. No fracture 2. Multilevel degenerative changes of the cervical spine as detailed above. Transcribed Date/Time: 10/02/2019 2:09 PM
== END 2019-10-02 11:24 | disposition home or self-care (01) ==
LOC: SCSCT 11:23
PROVIDERS: ATTEND Nurse Practitioner Family
DX: M47.22 Other spondylosis with radiculopathy, cervical region (principal); N28.1 Cyst of kidney, acquired; Z98.890 Other specified postprocedural states; Z90.79 Acquired absence of other genital organ(s)
CPT/HCPCS: 36415; 72125; 74176; 80048

== ENCOUNTER 2019-10-05 10:22 | Emergency (ER) | payer MEDICARE ==
[2019-10-05 12:18] LABS: #Eosinphils 0.1 thou/uL (0.0-0.7); #Lymphocytes 1.2 thou/uL (1.20-3.40); #Monocytes 0.6 thou/uL (0.11-0.59); %Basophils 0.5 % (0.0-1.0); %Eosinophils 1.6 % (0.0-10.0); %Lymphocytes 13.1 % (21.0-51.0); %Monocytes 7.1 % (0.0-10.0); %Neutrophils 77.6 % (42.0-75.0); Hemoglobin 13.8 g/dL (14.0-18.0); Mean Corpuscular HGB CONC 33.7 g/dL (32.0-36.0); Mean Platelet Volume 7.5 fL (7.4-10.4); Platelet Count 200 thou/uL (130-400); RBC Distribution Width 12.4 % (11.5-14.5); Red Blood Cell (RBC) Count 4.44 mill/uL (4.70-6.10)
[2019-10-05 12:37] LABS: Potassium 3.2 mmol/L (3.5-5.1); Sodium 138 mmol/L (136-145)
[2019-10-05 12:38] LABS: ALT (SGPT) 31 U/L (8-55); AST (SGOT) 31 U/L (5-34); Albumin 4.3 g/dL (3.4-4.8); Alkaline Phosphatase 68 U/L (40-110); Anion Gap 16 mmol/L (10-20); BUN (Urea Nitrogen) 21 mg/dL (8.4-25.7); Bilirubin, Total 0.6 mg/dL (0.2-1.2); Calc. Creatinine Clearance 0 mL/min (70-130); Calcium 9.6 mg/dL (7.8-10.44); Carbon Dioxide 27 mmol/L (23-31); Chloride 98 mmol/L (98-107); Estimated GFR-MDRD 61; Globulin 3.1 g/dL (2.4-3.5); Glucose 105 mg/dL (83-110); Protein, Total 7.4 g/dL (5.8-8.1)
[2019-10-05] MEDS ORDERED: Morphine 10 MG/ML VIAL ONE (13:46)
--- NOTE | 2019-10-05 13:46 | ULT ---
RIGHT LOWER EXTREMITY VENOUS DUPLEX STUDY: 10/05/19 INDICATIONS: Right lower extremity pain and edema. Deep veins of the right lower extremity evaluated with ultrasound and Doppler. Color Doppler and spec tral analysis and compression studies performed on the venous structures. FINDINGS: Deep veins of right lower extremity show normal blood flow and compression. No evidence of DVT. IMPRESSION: Negative right lower extremity venous duplex study. POS: AGW
== END 2019-10-05 14:04 | disposition home or self-care (01) ==
LOC: ERS 10:22
DX: M79.661 Pain in right lower leg (principal); E78.5 Hyperlipidemia, unspecified; I10 Essential (primary) hypertension; F41.9 Anxiety disorder, unspecified; F32.9 Major depressive disorder, single episode, unspecified; Z87.891 Personal history of nicotine dependence
CPT/HCPCS: 36415; 80053; 85025; 93005; 96372; J2270

== ENCOUNTER 2019-10-08 06:53 | Emergency (ER) | payer MEDICARE | END 2019-10-08 07:29 | disposition home or self-care (01) | LOC: ERS 06:53 | DX: M79.662 Pain in left lower leg (principal); M79.661 Pain in right lower leg; G89.29 Other chronic pain; E78.00 Pure hypercholesterolemia, unspecified; I10 Essential (primary) hypertension; F41.9 Anxiety disorder, unspecified; F32.9 Major depressive disorder, single episode, unspecified; E78.5 Hyperlipidemia, unspecified | CPT/HCPCS: 99281 ==

== ENCOUNTER 2019-10-14 15:44 | Emergency (ER) | payer MEDICARE ==
--- NOTE | 2019-10-14 16:33 | ULT ---
EXAM: Left lower extremity venous Doppler US HISTORY: left lower extremity pain FINDINGS: Grayscale, color-flow, Doppler evaluation, spectral analysis of the left lower extremity venous struc tures is performed with 2-D imaging. The left common femoral, superficial femoral, popliteal, posterior tibial, proximal greater saphenous and profunda femoral veins are imaged. There is normal luminal compressibility, flow, and augmentation the visualized deep venous structures of the left lower extremity. IMPRESSION: No evidence of a deep vein thrombosis in the left lower extremity.
[2019-10-14] MEDS ORDERED: Morphine 4 MG/ML VIAL ONE (18:14)
[2019-10-14 18:23] LABS: #Eosinphils 0.2 thou/uL (0.0-0.7); #Lymphocytes 1.3 thou/uL (1.20-3.40); #Monocytes 0.8 thou/uL (0.11-0.59); %Basophils 0.5 % (0.0-1.0); %Eosinophils 2.2 % (0.0-10.0); %Lymphocytes 14.1 % (21.0-51.0); %Monocytes 8.3 % (0.0-10.0); %Neutrophils 74.9 % (42.0-75.0); Hemoglobin 13.2 g/dL (14.0-18.0); Mean Corpuscular HGB CONC 33.9 g/dL (32.0-36.0); Mean Corpuscular Hemoglobin 31.3 pg (27.0-31.0); Mean Corpuscular Volume 92.3 fL (78.0-98.0); Mean Platelet Volume 6.9 fL (7.4-10.4); Platelet Count 256 thou/uL (130-400); RBC Distribution Width 13.3 % (11.5-14.5); Red Blood Cell (RBC) Count 4.21 mill/uL (4.70-6.10); White Blood Cell (WBC) Count 9.3 thou/uL (4.8-10.8)
[2019-10-14 18:43] LABS: ALT (SGPT) 24 U/L (8-55); AST (SGOT) 28 U/L (5-34); Albumin 4.2 g/dL (3.4-4.8); Alkaline Phosphatase 79 U/L (40-110); Anion Gap 18 mmol/L (10-20); BUN (Urea Nitrogen) 25 mg/dL (8.4-25.7); Bilirubin, Total 0.9 mg/dL (0.2-1.2); Calc. Creatinine Clearance 0 mL/min (70-130); Calcium 8.9 mg/dL (7.8-10.44); Carbon Dioxide 27 mmol/L (23-31); Chloride 93 mmol/L (98-107); Estimated GFR-MDRD 42; Globulin 3.2 g/dL (2.4-3.5); Glucose 79 mg/dL (83-110); Potassium 3.5 mmol/L (3.5-5.1); Protein, Total 7.4 g/dL (5.8-8.1); Sodium 134 mmol/L (136-145)
--- NOTE | 2019-10-14 18:44 | RAD ---
XR Femur Lt 2 View STANDARD INDICATION: Left lower extremity swelling and pain COMPARISON: None. FINDINGS: Bones: There is healed fracture deformity involving the distal left femoral shaft. Soft tissues: There is a generator pack overlying the left gluteal region. Joints: There is arthrodesis of the left knee joint. There is moderate to severe osteoarthrosis invol ving the left hip. IMPRESSION: No acute osseous abnormality.
--- NOTE | 2019-10-14 18:45 | RAD ---
XR Tib Fib Lt Leg 2 View INDICATION: Left lower extremity swelling and pain FINDINGS: Bones: No acute fracture or subluxation is evident. Joints: There is arthrodesis of the left knee. Soft tissues: There is diffuse soft tissue swelling of the left foreleg. IMPRESSION: Diffuse soft tissue swelling left foreleg. Arthrodesis of the left knee.
== END 2019-10-14 20:00 | disposition home or self-care (01) ==
LOC: ERS 15:44
DX: M79.89 Other specified soft tissue disorders (principal); E78.5 Hyperlipidemia, unspecified; I10 Essential (primary) hypertension; F41.9 Anxiety disorder, unspecified; F32.9 Major depressive disorder, single episode, unspecified
CPT/HCPCS: 80053; 83605; 85025; 87040; 96374; J2270

== ENCOUNTER 2019-10-31 20:02 | Inpatient (IN) | payer MEDICARE, OTHER ==
[~2019-10-31 20:02] MED LIST changes: -Iodixanol 320 MG/ML (100 ML BOT) ONE; +Iopamidol-370 76% 500 ML 1 ML ONE
--- NOTE | 2019-10-31 22:09 | ULT ---
EXAM: US Testicular W Doppler PROVIDED CLINICAL HISTORY: Left testicular pain. COMPARISON: None FINDINGS: There is generalized heterogeneity of the right testicle compared to the left testicle. No discrete t esticular mass is identified. The testicles are symmetric in size bilaterally with the left testicle measuring 4 cm x 2.7 cm x 2.1 cm and the right testicle measuring 4.1 cm x 2.3 cm x 1.7 cm. Doppler evaluation of each testicle with spectral analysis and color flow evaluation demonstrates art erial and venous flow in each testicle. A 1.5 cm anechoic structure is seen in the left epididymal head likely related to an epididymal cyst. Right epididymis is grossly within normal limits. There is no evidence of a hydrocele. IMPRESSION: 1. Generalized heterogeneity of the right testicle of uncertain etiology. This could be sequela of pr ior infection. Arterial and venous flow is documented in the right testicle. 2. Normal appearance of the left testicle with arterial flow documented. 3. Left epididymal cyst.
[2019-11-01 00:11] LABS: Band 9 % (5-11); Hemoglobin 11.1 g/dL (14.0-18.0); Lymphocytes 2 % (21-51); MDiff Complete? YES; Mean Corpuscular HGB CONC 31.6 g/dL (32.0-36.0); Mean Corpuscular Hemoglobin 30.1 pg (27.0-31.0); Mean Corpuscular Volume 95.3 fL (78.0-98.0); Mean Platelet Volume 8.5 fL (7.4-10.4); Metamyelocyte 3 % (0-0); Monocytes 7 % (0-10); Myelocyte 1 % (0-0); Neutrophil 78 % (42-75); Platelet Count 331 thou/uL (130-400); Platelet Morphology Comment Appears Adequate; RBC Distribution Width 14.2 % (11.5-14.5); Red Blood Cell (RBC) Count 3.71 mill/uL (4.70-6.10); White Blood Cell (WBC) Count 20.2 thou/uL (4.8-10.8)
[2019-11-01] MEDS ORDERED: Acetaminophen 500 MG TAB ONE (00:24)
[2019-11-01 00:38] LABS: Bacteria/HPF None Seen HPF (None Seen); Bilirubin Negative (Negative); Blood, Urine Negative (Negative); Clarity Clear (Clear); Glucose, Urine (Dipstick) Normal (Negative); Ketone, Urine 10 mg/dL (Negative); Leukocyte Negative Leu/uL (Negative); Nitrite Negative (Negative); Protein, Urine (Dipstick) 70 mg/dL (Neg-Trace); RBC/HPF 0-3 HPF (0-3); Specific Gravity, Urine 1.022 (1.002-1.036); Squamous Epithelial 0-3 HPF (0-3); Urobilinogen Normal mg/dL (Less than 2); WBC/HPF 0-3 HPF (0-3)
[2019-11-01 00:55] LABS: ALT (SGPT) 351 U/L (8-55); AST (SGOT) 314 U/L (5-34); Albumin 3.3 g/dL (3.4-4.8); Alkaline Phosphatase 193 U/L (40-110); Anion Gap 16 mmol/L (10-20); BUN (Urea Nitrogen) 20 mg/dL (8.4-25.7); Bilirubin, Total 0.4 mg/dL (0.2-1.2); Calc. Creatinine Clearance 0 mL/min (70-130); Calcium 9.1 mg/dL (7.8-10.44); Carbon Dioxide 22 mmol/L (23-31); Chloride 100 mmol/L (98-107); Estimated GFR-MDRD 65; Globulin 4.2 g/dL (2.4-3.5); Glucose 86 mg/dL (83-110); Lipase 36 U/L (8-78); Potassium 4.1 mmol/L (3.5-5.1); Protein, Total 7.5 g/dL (5.8-8.1); Sodium 134 mmol/L (136-145)
[2019-11-01] MEDS ORDERED: cefTRIAXone\\ROCEPHIN 2 GM VIAL ONE (01:38)
[2019-11-01] MEDS ORDERED: Morphine 4 MG/ML VIAL ONE (01:47)
[2019-11-01] MEDS ORDERED: Ondansetron PF 4 MG/2 ML Vial ONE (01:47)
[2019-11-01] MEDS ORDERED: metroNIDAZOLE 500 MG/100 ML BAG ONE (02:18)
[2019-11-01] MEDS ORDERED: Acetaminophen 650 MG Suppository PR PRN (02:33)
[2019-11-01] MEDS ORDERED: Acetaminophen 325 MG TAB PO PRN (02:33)
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
[2019-11-01] MEDS ORDERED: Morphine 2 MG/ML VIAL SLOW IVP SCH (04:00)
[2019-11-01 04:03] VITALS: BMI 33.2
[2019-11-01] MEDS: Sodium Chloride 0.9% 1,000 ML IV SCH ×2 (04:38→18:04)
[2019-11-01 05:55] LABS: ALT (SGPT) 311 U/L (8-55); AST (SGOT) 259 U/L (5-34); Albumin 2.9 g/dL (3.4-4.8); Alkaline Phosphatase 171 U/L (40-110); Anion Gap 14 mmol/L (10-20); BUN (Urea Nitrogen) 17 mg/dL (8.4-25.7); Bilirubin, Total 0.4 mg/dL (0.2-1.2); Calc. Creatinine Clearance 103 mL/min (70-130); Calcium 8.5 mg/dL (7.8-10.44); Carbon Dioxide 21 mmol/L (23-31); Chloride 102 mmol/L (98-107); Estimated GFR-MDRD 74; Globulin 3.7 g/dL (2.4-3.5); Glucose 88 mg/dL (83-110); Lipase 37 U/L (8-78); Protein, Total 6.6 g/dL (5.8-8.1); Sodium 133 mmol/L (136-145)
[2019-11-01 06:35] LABS: Band 30 % (5-11); Eosinophils 1 % (0-10); Hemoglobin 10.7 g/dL (14.0-18.0); Lymphocytes 6 % (21-51); MDiff Complete? YES; Mean Corpuscular HGB CONC 31.4 g/dL (32.0-36.0); Mean Corpuscular Hemoglobin 30.1 pg (27.0-31.0); Mean Corpuscular Volume 95.9 fL (78.0-98.0); Metamyelocyte 6 % (0-0); Monocytes 1 % (0-10); Neutrophil 56 % (42-75); Platelet Count 337 thou/uL (130-400); Platelet Morphology Comment Appears Adequate; RBC Distribution Width 13.9 % (11.5-14.5); Red Blood Cell (RBC) Count 3.54 mill/uL (4.70-6.10); White Blood Cell (WBC) Count 19.1 thou/uL (4.8-10.8)
--- NOTE | 2019-11-01 07:36 | RAD ---
Radiograph left leg tibia-fibula 2 views: HISTORY: 69-year-old male with left leg infection. Rule out osteomyelitis. FINDINGS: There is ankylosis of the femoral tibial joint. No hardware. Soft tissue edema of the leg. No evidenc e of periostitis, permeative lesion, osteolytic lesion, or osteoblastic lesion, involving the tibia or fibula. IMPRESSION: 1. Status post arthrodesis of the left knee joint. 2. No destructive osseous lesion of the tibia or fibula.
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
[2019-11-01] MEDS ORDERED: Magnesium Sulfate 4 GM in Sodium Chloride 0.9% 250 ML 250 ML IVPB SCH (09:00)
[2019-11-01] MEDS ORDERED: Vancomycin 1 GM in Premix Bag 1 BAG IVPB SCH (09:00)
--- NOTE | 2019-11-01 09:44 | PDOC.HOSPP ---
- Subjective Encounter Date: 11/01/19 - Objective Vital Signs & Weight: Vital Signs (12 hours) Temp Pulse Resp BP Pulse Ox 11/01/19 04:00 100 11/01/19 03:30 98.2 F 78 18 119/81 100 Weight Weight 238 lb I&O: 10/31/19 11/01/19 11/02/19 06:59 06:59 06:59 Intake Total 210 Balance 210 Result Diagrams: 11/01/19 05:15 11/01/19 05:15 Hospitalist ROS - Medication Medications: Active Medications Generic Name Dose Route Start Last Admin Trade Name Freq PRN Reason Stop Dose Admin Sodium Chloride 1,000 mls @ 70 mls/hr 11/01/19 02:45 11/01/19 04:38 Normal Saline 0.9% IV 1,000 mls .[id number] Administration
[2019-11-01] MEDS ORDERED: metroNIDAZOLE 500 MG in Premix Bag 1 BAG IVPB SCH (10:00)
[2019-11-01 10:24] LABS: PTT 32.5 sec (22.9-36.1)
[2019-11-01 10:32] LABS: INR-International Normal Ratio 1.2; Prothrombin Time 15.6 sec (12.0-14.7)
[2019-11-01] MEDS: Morphine 2 MG/ML VIAL SLOW IVP PRN ×3 (11:23→21:15)
[2019-11-01] MEDS ORDERED: Fentanyl 100 MCG/2 ML VIAL ONE (13:05)
[2019-11-01] MEDS ORDERED: Midazolam HCl 2 mg/2 ml Vial ONE (13:05)
[2019-11-01] MEDS ORDERED: Sodium Bicarbonate 2.5 MEQ/5 ML VIAL ONE (13:05)
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
--- NOTE | 2019-11-01 15:19 | CT ---
CT-guided retroperitoneal abscess drainage Conscious sedation: At least 40 minutes spent with patient for conscious sedation. FINDINGS: After explaining the procedure and answering all questions, limited CT imaging of the pelvi s was performed. Sterile technique, buffered local anesthesia, CT guidance, conscious sedation, and a left lower quadr ant approach were used to carefully advance a 19-gauge needle into the left iliopsoas fluid collection. A 0.035 Amplatz guidewire was placed on position. Tract was dilated to 8 Lao. A locking loop 8 Carter nch drain was carefully placed into the abscess cavity and retention suture secured. A total volume of 70 cc light yellow purulent material was aspirated. A portion sent to laboratory for analysis. Rep eat imaging shows decompression of the fluid cavity. The catheter was secured externally with 0 silk suture and left draining to gravity. Patient tolerate d the procedure well and was returned in unchanged condition. IMPRESSION : Technically successful CT-guided drainage left iliopsoas abscess.
[2019-11-01] MEDS: metroNIDAZOLE 500 MG in Premix Bag 1 BAG IVPB SCH ×2 (15:41→22:40)
[2019-11-02] MEDS: Vancomycin HCl 1.25 GM in Sodium Chloride 0.9% 250 ML 250 ML IVPB SCH ×2 (00:05→10:57)
[2019-11-02] MEDS: Morphine 2 MG/ML VIAL SLOW IVP PRN ×4 (02:16→21:59)
[2019-11-02] MEDS ORDERED: Senokot 8.6 MG TAB PO PRN (03:09)
[2019-11-02] MEDS: cefTRIAXone\\ROCEPHIN 2 GM in Sodium Chloride 0.9% 100 ML IVPB SCH (03:13)
[2019-11-02] MEDS: metroNIDAZOLE 500 MG in Premix Bag 1 BAG IVPB SCH ×2 (06:29→15:29)
[2019-11-02 07:24] LABS: ALT (SGPT) 223 U/L (8-55); AST (SGOT) 109 U/L (5-34); Albumin 2.8 g/dL (3.4-4.8); Alkaline Phosphatase 155 U/L (40-110); Anion Gap 13 mmol/L (10-20); BUN (Urea Nitrogen) 11 mg/dL (8.4-25.7); Bilirubin, Total 0.2 mg/dL (0.2-1.2); CRP (Inflammatory) 15.84 mg/dL (= or < 0.5); Calc. Creatinine Clearance 118 mL/min (70-130); Calcium 8.5 mg/dL (7.8-10.44); Carbon Dioxide 22 mmol/L (23-31); Chloride 106 mmol/L (98-107); Estimated GFR-MDRD 85; Globulin 3.7 g/dL (2.4-3.5); Glucose 100 mg/dL (83-110); Magnesium 1.7 mg/dL (1.6-2.6); Protein, Total 6.5 g/dL (5.8-8.1); Sodium 137 mmol/L (136-145)
[2019-11-02] MEDS: Sodium Chloride 0.9% 1,000 ML IV SCH ×2 (08:34→12:39)
--- NOTE | 2019-11-02 08:50 | PDOC.HOSPP ---
- Subjective Encounter Date: 11/02/19 Encounter Time: 14:00 Subjective: Patient was seen at the bedside and was assessed for his left psoas abscess. In terms of overnight events, patient says he has pain in his groin and diffuse abdominal tenderness. - Objective Vital Signs & Weight: Vital Signs (12 hours) Temp Pulse Resp BP Pulse Ox 11/02/19 07:48 98.3 F 74 16 131/80 94 L 11/02/19 05:03 98.8 F 81 16 133/80 93 L 11/02/19 02:15 98.8 F 77 20 144/84 H 97 Weight Weight 238 lb I&O: 11/01/19 11/02/19 11/03/19 06:59 06:59 06:59 Intake Total 210 Output Total 850 106 Balance -640 -106 Result Diagrams: 11/02/19 06:34 11/02/19 06:34 Additional Labs: Laboratory Tests 11/02/19 06:34 AST 109 H ALT 223 H Alkaline Phosphatase 155 H C-Reactive Protein 15.84 H Microbiology 11/01/19 13:30 Psoas Bacterial Culture - Preliminary Staphylococcus aureus 11/01/19 01:47 Venous blood - Right Arm Blood Culture - Preliminary Specimen has been received and culture in progress. No Growth to date. 11/01/19 01:12 Venous blood - Right Arm Blood Culture - Preliminary Specimen has been received and culture in progress. No Growth to date. 11/01/19 00:17 Urine voided Urine Culture - Preliminary NO GROWTH AT 12 HOURS Radiology Reviewed by me: Yes (CT - Psoas abscess) Hospitalist ROS - Review of Systems Constitutional: denies: fever, chills, sweats, weakness, malaise, other Respiratory: reports: shortness of breath. denies: cough, dry, hemoptysis, SOB with excertion, pleuritic pain, sputum, wheezing, other Cardiovascular: reports: edema (edema in both legs) Gastrointestinal: reports: abdominal pain (diffuse abdominal tenderness), constipation. denies: nausea, vomiting, diarrhea, melena, hematochezia, other - Medication Medications: Active Medications Generic Name Dose Route Start Last Admin Trade Name Freq PRN Reason Stop Dose Admin Sodium Chloride 1,000 mls @ 70 mls/hr 11/01/19 02:45 11/02/19 08:34 Normal Saline 0.9% IV 1,000 mls .[id number] ZAIRE Administration Ceftriaxone Sodium 2 gm/ 100 mls @ 200 mls/hr 11/02/19 02:00 11/02/19 03:13 Sodium Chloride IVPB 100 mls Q24HR ZAIRE Administration Vancomycin HCl 1.25 gm/ Sodium 250 mls @ 166.667 mls/hr 11/01/19 23:00 00:05 Chloride IVPB 250 mls 1100,2300 ZAIRE Administration Metronidazole 500 mg/ Device 100 mls @ 100 mls/hr 11/01/19 15:00 11/02/19 06: 29 IVPB 100 mls 0700,1500,2300 ZAIRE Administration Morphine Sulfate 2 mg 11/01/19 10:35 11/02/19 06:29 Morphine SLOW IVP 11/03/19 10:36 2 mg Q4H PRN Administration Pain Senna 1 tab 11/02/19 03:09 11/02/19 03:23 Senokot PO 1 tab HSPRN PRN Administration Constipation - Exam General Appearance: awake alert Neck: supple, no JVD Heart: RRR, no murmur, no gallops, no rubs, normal peripheral pulses Respiratory: CTAB, no wheezes, no rales, no ronchi, normal chest expansion, no tachypnea, normal percussion Gastrointestinal: soft, normal bowel sounds, no palpable masses, no hepatomegaly , no splenomegaly, no guarding, no rigidity, tender to palpation, distended Gastrointestinal - other findings: drain from Psoas abscess + Extremities: no cyanosis, no clubbing Extremities - other findings: trace edema, No calf tenderness Psychiatric: normal affect, A&O x 3 Hosp A/P - Plan PT/OT, DVT proph w/heparin, DVT proph w/SCDs Abd/Back pain -multifactorial Sepsis due to left Psoas abscess- POA -s/p CT drainage 10/31 -on IV Vancomycin/Ceftiaxone/Flagyl Left Testicular swelling of unclear etiology - USG negative for Torsion Abn LFTs - prob due to Sepsis -improving LLE swelling - Prob due to cellulitis - DVT ruled out Hypomagnesemia HTN HLD Obesity BMI 33.2 Constipation PLAN: s/p CT drainage of Psoas abscess ID input appreciated Cont Ceftiaxone/Flagyl/Vancomycin Monitor Vancomyin level Await cultures Replace Magnesium Monitor post void due to possible retention Cont IVF - reduce rate IV Morphine for pain control - Add [place] Cont other meds as above Treat constipation
[2019-11-02 08:58] LABS: Band 1 % (5-11); Eosinophils 2 % (0-10); Hemoglobin 10.8 g/dL (14.0-18.0); Lymphocytes 3 % (21-51); MDiff Complete? YES; Mean Corpuscular HGB CONC 32.3 g/dL (32.0-36.0); Mean Corpuscular Hemoglobin 30.8 pg (27.0-31.0); Mean Corpuscular Volume 95.6 fL (78.0-98.0); Mean Platelet Volume 6.8 fL (7.4-10.4); Monocytes 11 % (0-10); Neutrophil 83 % (42-75); Platelet Count 374 thou/uL (130-400); Platelet Morphology Comment Appears Adequate; RBC Distribution Width 13.9 % (11.5-14.5); Red Blood Cell (RBC) Count 3.49 mill/uL (4.70-6.10); White Blood Cell (WBC) Count 16.3 thou/uL (4.8-10.8)
[2019-11-02] MEDS ORDERED: Magnesium 2 GM/50 ML 2 GM in Premix Bag 1 BAG IVPB SCH (09:00)
[2019-11-02 14:42] LABS: Barbiturates Screen Detected (NotDetected); Medtox Reader # READER 1; Opiate Screen Detected (NotDetected)
[2019-11-02 14:43] LABS: Amphetamine Not Detected (NotDetected); Benzodiazepine Screen Not Detected (NotDetected); Cocaine Metabolite Screen Not Detected (NotDetected); Medtox Control Line Valid? VALID (VALID); Methadone Not Detected (NotDetected); Methamphetamine Not Detected (NotDetected); Oxycodone Screen Not Detected (NotDetected); Phencyclidine (PCP) Not Detected (NotDetected); THC/Cannabinoid Screen Not Detected (NotDetected); Tricyclic Screen Not Detected (NotDetected)
[2019-11-02] MEDS: HYDROcodone/Acetaminophen 5/325 mg Tablet PO PRN (16:53)
[2019-11-02] MEDS ORDERED: Bisacodyl 10 MG SUPP PR PRN (17:35)
[2019-11-02] MEDS ORDERED: Bisacodyl 5 MG TAB PO PRN (17:35)
[2019-11-02] MEDS ORDERED: Topiramate 100 MG TAB PO SCH (22:45)
[2019-11-02 23:26] LABS: Vancomycin, Trough 14.4 ug/mL
[2019-11-02] MEDS: Senokot S 8.6-50 MG TAB PO SCH (23:30)
[2019-11-02] MEDS: Heparin 5,000 UNITS/ML VIAL SC SCH (23:31)
[2019-11-03] MEDS: HYDROcodone/Acetaminophen 5/325 mg Tablet PO PRN ×2 (01:28→13:57)
[2019-11-03] MEDS: Morphine 2 MG/ML VIAL SLOW IVP PRN ×2 (04:31→08:49)
[2019-11-03] MEDS: Vancomycin HCl 1.25 GM in Sodium Chloride 0.9% 250 ML 250 ML IVPB SCH ×3 (05:36→22:43)
[2019-11-03] MEDS: cefTRIAXone\\ROCEPHIN 2 GM in Sodium Chloride 0.9% 100 ML IVPB SCH ×2 (05:50→09:01)
[2019-11-03] MEDS: metroNIDAZOLE 500 MG in Premix Bag 1 BAG IVPB SCH ×4 (05:50→21:12)
[2019-11-03] MEDS ORDERED: cefTRIAXone\\ROCEPHIN 2 GM in Sodium Chloride 0.9% 100 ML IVPB SCH (06:00)
[2019-11-03 07:22] LABS: ALT (SGPT) 169 U/L (8-55); AST (SGOT) 62 U/L (5-34); Albumin 2.9 g/dL (3.4-4.8); Alkaline Phosphatase 137 U/L (40-110); Anion Gap 12 mmol/L (10-20); BUN (Urea Nitrogen) 10 mg/dL (8.4-25.7); Bilirubin, Total 0.2 mg/dL (0.2-1.2); Calc. Creatinine Clearance 123 mL/min (70-130); Calcium 8.6 mg/dL (7.8-10.44); Carbon Dioxide 22 mmol/L (23-31); Chloride 108 mmol/L (98-107); Estimated GFR-MDRD 90; Globulin 3.8 g/dL (2.4-3.5); Glucose 96 mg/dL (83-110); Magnesium 1.8 mg/dL (1.6-2.6); Potassium 3.9 mmol/L (3.5-5.1); Protein, Total 6.7 g/dL (5.8-8.1); Sodium 138 mmol/L (136-145)
[2019-11-03 08:16] LABS: Hemoglobin 10.9 g/dL (14.0-18.0); Mean Corpuscular Hemoglobin 30.7 pg (27.0-31.0); Mean Corpuscular Volume 96.1 fL (78.0-98.0); Mean Platelet Volume 7.1 fL (7.4-10.4); Platelet Count 331 thou/uL (130-400); RBC Distribution Width 14.1 % (11.5-14.5); Red Blood Cell (RBC) Count 3.54 mill/uL (4.70-6.10); White Blood Cell (WBC) Count 15.3 thou/uL (4.8-10.8)
[2019-11-03 08:19] LABS: Band 2 % (5-11); Eosinophils 2 % (0-10); Lymphocytes 5 % (21-51); MDiff Complete? YES; Monocytes 10 % (0-10); Neutrophil 81 % (42-75); Platelet Morphology Comment Appears Adequate
[2019-11-03] MEDS: Gabapentin 300 MG CAP PO SCH (08:53)
[2019-11-03] MEDS: Topiramate 100 MG TAB PO SCH ×2 (08:53→21:13)
[2019-11-03] MEDS: Polyethylene Glycol 3350 17 GM Packet PO SCH (08:53)
[2019-11-03] MEDS: Senokot S 8.6-50 MG TAB PO SCH ×2 (08:54→21:13)
[2019-11-03] MEDS: Heparin 5,000 UNITS/ML VIAL SC SCH ×2 (08:54→21:13)
--- NOTE | 2019-11-03 11:59 | PDOC.HOSPP ---
- Subjective Encounter Date: 11/03/19 Encounter Time: 15:00 Subjective: Patient seen and examined for Psoas abscess. Headache slightly better. No fever. No new complaints. No overnight events - Objective Vital Signs & Weight: Vital Signs (12 hours) Temp Pulse Resp BP Pulse Ox 11/03/19 08:00 98.2 F 92 22 H 154/91 H 100 Weight Weight 238 lb I&O: 11/02/19 11/03/19 11/04/19 06:59 06:59 06:59 Intake Total 580 Output Total 106 867 Balance -106 -287 Result Diagrams: 11/04/19 05:25 11/04/19 05:25 Additional Labs: Microbiology 11/01/19 13:30 Psoas Bacterial Culture - Final Methicillin resistant S.aureus 11/01/19 00:17 Urine voided Urine Culture - Final NO GROWTH AT 36 HOURS 11/01/19 01:47 Venous blood - Right Arm Blood Culture - Preliminary Specimen has been received and culture in progress. No Growth to date. 11/01/19 01:12 Venous blood - Right Arm Blood Culture - Preliminary Specimen has been received and culture in progress. No Growth to date. Laboratory Tests 11/03/19 06:32 AST 62 H ALT 169 H Alkaline Phosphatase 137 H Hospitalist ROS - Review of Systems Respiratory: denies: cough, dry, shortness of breath, hemoptysis, SOB with excertion, pleuritic pain, sputum, wheezing, other Cardiovascular: denies: chest pain, palpitations, orthopnea, paroxysmal noc. dyspnea, edema, light headedness, other Neurological: denies: weakness, numbness, incoordination, change in speech, confusion, seizures, other - Medication Medications: Active Medications Generic Name Dose Route Start Last Admin Trade Name Freq PRN Reason Stop Dose Admin Hydrocodone Bitart/Acetaminophen 1 tab 11/02/19 16:47 11/03/19 01:28 [place] 5/325 PO 1 tab Q4H PRN Administration Moderate Pain (4-6) Gabapentin 300 mg 11/03/19 09:00 11/03/19 08:53 Neurontin PO 300 mg DAILY ZAIRE Administration Heparin Sodium (Porcine) 5,000 units 11/02/19 21:00 11/03/19 08:54 Heparin SC 5,000 units BID ZAIRE Administration Sodium Chloride 1,000 mls @ 30 mls/hr 11/02/19 12:00 11/02/19 12:39 Normal Saline 0.9% IV Not Given .Q24H ZAIRE Vancomycin HCl 1.25 gm/ Sodium 250 mls @ 166.667 mls/hr 11/03/19 05:00 05:36 Chloride IVPB 250 mls 0500,1700 ZAIRE Administration Metronidazole 500 mg/ Device 100 mls @ 100 mls/hr 11/03/19 06:00 11/03/19 07: 50 IVPB 100 mls Q8HR ZAIRE Administration Ceftriaxone Sodium 2 gm/ 100 mls @ 200 mls/hr 11/03/19 09:00 11/03/19 09:01 Sodium Chloride IVPB 100 mls 0900 ZAIRE Administration Polyethylene Glycol 17 gm 11/03/19 09:00 11/03/19 08:53 Miralax PO 17 gm DAILY ZAIRE Administration Senna 1 tab 11/02/19 03:09 11/02/19 03:23 Senokot PO 1 tab HSPRN PRN Administration Constipation Senna/Docusate Sodium 2 tab 11/02/19 21:00 11/03/19 08:54 Senokot S PO 2 tab BID ZAIRE Administration Topiramate 100 mg 11/03/19 09:00 11/03/19 08:53 Topamax PO 100 mg BID ZAIRE Administration - Exam General Appearance: NAD Neck: supple, no JVD Heart: RRR, no gallops Respiratory: no wheezes, no ronchi Gastrointestinal: non-tender, normal bowel sounds Extremities: no cyanosis, no clubbing Hosp A/P - Plan DVT proph w/heparin, DVT proph w/SCDs Abd/Back pain -multifactorial Sepsis due to left Psoas abscess- POA -s/p CT drainage 10/31 -on IV Vancomycin/Ceftiaxone/Flagyl Left Testicular swelling of unclear etiology - USG negative for Torsion Abn LFTs - prob due to Sepsis -improving LLE swelling - Prob due to cellulitis - DVT ruled out Hypomagnesemia HTN HLD Obesity BMI 33.2 Constipation PLAN: 11/02 Cont Ceftiaxone/Flagyl/Vancomycin Cont Vanc level monitoring Home meds restarted Will d/w ID Cont other meds as above AM labs 11/01 s/[address] drainage of Psoas abscess 10/31 ID input appreciated Cont Ceftiaxone/Flagyl/Vancomycin Monitor Vancomyin level Await cultures Replace Magnesium Monitor post void due to possible retention Cont IVF - reduce rate IV Morphine for pain control - Add [place] Cont other meds as above Treat constipation
[2019-11-03] MEDS: Sodium Chloride 0.9% 1,000 ML IV SCH (13:55)
--- NOTE | 2019-11-03 15:05 | PRG ---
DATE OF SERVICE: 11/03/2019 SUBJECTIVE: The patient having severe cluster headaches at the moment of the interview and he had a hard time in answering questions, became really severe at the completion of the interview. The abdomen gets tender when he is having those episodes. Continues to have the drainage with quite a bit of purulent exudate retrieved. He had 106 mL yesterday and today thus far is 67. No vinh purulent exudate. No diarrhea. OBJECTIVE: VITAL SIGNS: He has been afebrile and BP 150/90, pulse 92, respirations 16 to 22, O2 saturation 100. GENERAL: The patient is in distress from the cluster headaches. LUNGS: Symmetric, clear breath sounds. HEART: S1, S2, regular rate. ABDOMEN: Soft with [id number] tenderness in left side, percutaneous catheter. LABORATORY DATA: Sodium 138, creatinine is 0.84. AST is 62, ALT 169, alkaline phosphatase of 137, albumin 2.9. Vanc trough was 14.4. MRSA has been retrieved from the cultures. Vancomycin JANETH was less than 0.5. ASSESSMENT AND DISCUSSION: Osteomyelitis, left femur during childhood, in remission; prostate cancer, recent prostatectomy in [place]; pain left side of the abdomen associated with left psoas muscle or lymphocele abscess due to MRSA. This is either a hematogenous spread or local infection of a lymphocele or both. Continue vancomycin. PICC line placement, treat for at least 2 weeks. Monitor progress of the abscess and then removal of the drainage whenever suitable. We will try some Imitrex for the cluster headaches and O2 administration. Job ID: [id number]
[2019-11-03] MEDS: SUMAtriptan Succinate 6 MG/0.5 ML VIAL SC PRN ×2 (15:07→21:05)
[2019-11-03] MEDS ORDERED: Zolpidem Tartrate 5 MG TAB PO PRN (15:46)
[2019-11-03] MEDS ORDERED: Magnesium Sulfate 4 GM in Sodium Chloride 0.9% 250 ML 250 ML IVPB SCH (16:00)
[2019-11-03] MEDS ORDERED: Morphine 2 MG/ML VIAL SLOW IVP SCH (17:15)
[2019-11-03] MEDS ORDERED: Zolpidem Tartrate 5 MG TAB PO SCH (21:00)
[2019-11-04 05:49] LABS: #Eosinphils 0.2 thou/uL (0.0-0.7); #Lymphocytes 0.9 thou/uL (1.20-3.40); #Monocytes 0.7 thou/uL (0.11-0.59); #Neutrophils 14.1 thou/uL (1.40-6.50); %Basophils 0.2 % (0.0-1.0); %Eosinophils 1.2 % (0.0-10.0); %Lymphocytes 5.8 % (21.0-51.0); %Monocytes 4.1 % (0.0-10.0); %Neutrophils 88.7 % (42.0-75.0); Hemoglobin 11.2 g/dL (14.0-18.0); Mean Corpuscular HGB CONC 30.6 g/dL (32.0-36.0); Mean Corpuscular Hemoglobin 30.1 pg (27.0-31.0); Mean Corpuscular Volume 98.5 fL (78.0-98.0); Mean Platelet Volume 6.6 fL (7.4-10.4); Platelet Count 415 thou/uL (130-400); RBC Distribution Width 14.4 % (11.5-14.5); Red Blood Cell (RBC) Count 3.73 mill/uL (4.70-6.10); White Blood Cell (WBC) Count 15.8 thou/uL (4.8-10.8)
[2019-11-04 06:12] LABS: ALT (SGPT) 129 U/L (8-55); AST (SGOT) 51 U/L (5-34); Albumin 2.8 g/dL (3.4-4.8); Alkaline Phosphatase 131 U/L (40-110); Anion Gap 13 mmol/L (10-20); BUN (Urea Nitrogen) 10 mg/dL (8.4-25.7); Bilirubin, Total 0.2 mg/dL (0.2-1.2); Calc. Creatinine Clearance 128 mL/min (70-130); Calcium 8.2 mg/dL (7.8-10.44); Carbon Dioxide 14 mmol/L (23-31); Chloride 113 mmol/L (98-107); Estimated GFR-MDRD Greater than 90; Globulin 3.7 g/dL (2.4-3.5); Glucose 93 mg/dL (83-110); Potassium 4.2 mmol/L (3.5-5.1); Protein, Total 6.5 g/dL (5.8-8.1); Sodium 137 mmol/L (136-145)
[2019-11-04] MEDS ORDERED: Fioricet 325/50/40 mg Tablet PO SCH (06:45)
[2019-11-04] MEDS: metroNIDAZOLE 500 MG in Premix Bag 1 BAG IVPB SCH (06:50)
[2019-11-04 08:15] VITALS: BP 135/83; TEMP 98.2
[2019-11-04] MEDS: cefTRIAXone\\ROCEPHIN 2 GM in Sodium Chloride 0.9% 100 ML IVPB SCH (10:04)
[2019-11-04] MEDS: Polyethylene Glycol 3350 17 GM Packet PO SCH (10:05)
[2019-11-04] MEDS: Heparin 5,000 UNITS/ML VIAL SC SCH (10:05)
[2019-11-04] MEDS: Senokot S 8.6-50 MG TAB PO SCH (10:05)
[2019-11-04] MEDS: Gabapentin 300 MG CAP PO SCH (10:05)
--- NOTE | 2019-11-04 10:53 | PDOC.HOSPP ---
- Subjective Encounter Date: 11/04/19 Encounter Time: 14:15 Subjective: Patient was seen and examined for psoas abscess. In terms of overnight events, patient reports headache, diarrhea and tinnitus. - Objective Vital Signs & Weight: Vital Signs (12 hours) Temp Pulse Resp BP Pulse Ox 11/04/19 08:00 98.2 F 92 18 135/83 100 Weight Weight 238 lb I&O: 11/03/19 11/04/19 11/05/19 06:59 06:59 06:59 Intake Total 580 1290 Output Total 1802 1375 Balance -1222 -85 Result Diagrams: 11/04/19 05:25 11/04/19 05:25 Hospitalist ROS - Review of Systems Constitutional: denies: fever, chills, sweats, malaise, other Eyes: denies: pain, vision change, conjunctivae inflammation, eyelid inflammation, redness, other ENT: reports: ear pain Respiratory: denies: cough, dry, shortness of breath, hemoptysis, SOB with excertion, pleuritic pain, sputum, wheezing, other Cardiovascular: denies: chest pain, palpitations, orthopnea, paroxysmal noc. dyspnea, edema, light headedness, other Gastrointestinal: reports: abdominal pain, diarrhea. denies: nausea, vomiting, constipation, melena, hematochezia - Medication Medications: Active Medications Generic Name Dose Route Start Last Admin Trade Name Freq PRN Reason Stop Dose Admin Hydrocodone Bitart/Acetaminophen 1 tab 11/02/19 16:47 11/03/19 13:57 [place] 5/325 PO 1 tab Q4H PRN Administration Moderate Pain (4-6) Gabapentin 300 mg 11/03/19 09:00 11/04/19 10:05 Neurontin PO 300 mg DAILY ZAIRE Administration Heparin Sodium (Porcine) 5,000 units 11/02/19 21:00 11/04/19 10:05 Heparin SC Not Given BID ZAIRE Sodium Chloride 1,000 mls @ 30 mls/hr 11/02/19 12:00 11/03/19 13:55 Normal Saline 0.9% IV Not Given .Q24H ZAIRE Metronidazole 500 mg/ Device 100 mls @ 100 mls/hr 11/03/19 06:00 11/04/19 06: 50 IVPB 100 mls Q8HR ZAIRE Administration Ceftriaxone Sodium 2 gm/ 100 mls @ 200 mls/hr 11/03/19 09:00 11/04/19 10:04 Sodium Chloride IVPB 100 mls 0900 ZAIRE Administration Polyethylene Glycol 17 gm 11/03/19 09:00 11/04/19 10:05 Miralax PO Not Given DAILY ZAIRE Senna 1 tab 11/02/19 03:09 11/02/19 03:23 Senokot PO 1 tab HSPRN PRN Administration Constipation Senna/Docusate Sodium 2 tab 11/02/19 21:00 11/04/19 10:05 Senokot S PO Not Given BID ZAIRE Sumatriptan Succinate 6 mg 11/03/19 14:46 11/03/19 21:05 Imitrex SC 6 mg Q1H PRN Administration Migraine Headache Zolpidem Tartrate 10 mg 11/03/19 15:46 11/03/19 23:06 Ambien PO 10 mg HS PRN Administration Insomnia - Exam General Appearance: awake alert Heart: RRR, no murmur, no gallops, no rubs, normal peripheral pulses Respiratory: CTAB, no wheezes, no rales, no ronchi, normal chest expansion, no tachypnea, normal percussion Gastrointestinal: soft, non-distended, normal bowel sounds, no palpable masses, no hepatomegaly, no splenomegaly, no bruit, tender to palpation, distended, voluntary guarding Hosp A/P - Plan Abd/Back pain -multifactorial Sepsis due to left Psoas abscess- POA -s/p CT drainage 10/31 -on IV Vancomycin/Ceftiaxone/Flagyl Left Testicular swelling of unclear etiology - USG negative for Torsion Abn LFTs - prob due to Sepsis -improving LLE swelling - Prob due to cellulitis - DVT ruled out Hypomagnesemia HTN HLD Obesity BMI 33.2 Constipation PLAN: 11/03 Cont IV Vancomycin for 2 weeks SNF eval DC drain as outpt DC Ceftriaxone DC Flagyl Stable for dc 11/02 Cont Ceftiaxone/Flagyl/Vancomycin Cont Vanc level monitoring Home meds restarted Will d/w ID Cont other meds as above AM labs 11/01 s/[address] drainage of Psoas abscess 10/31 ID input appreciated Cont Ceftiaxone/Flagyl/Vancomycin Monitor Vancomyin level Await cultures Replace Magnesium Monitor post void due to possible retention Cont IVF - reduce rate IV Morphine for pain control - Add [place] Cont other meds as above Treat constipation
[2019-11-04] MEDS ORDERED: Vancomycin HCl 1.25 GM in Sodium Chloride 0.9% 250 ML 250 ML IVPB SCH (11:00)
[2019-11-04] MEDS: SUMAtriptan Succinate 6 MG/0.5 ML VIAL SC PRN (11:04)
[2019-11-04] MEDS: Sodium Chloride 0.9% 1,000 ML IV SCH (14:34)
[2019-11-04] MEDS: HYDROcodone/Acetaminophen 5/325 mg Tablet PO PRN (16:16)
--- NOTE | 2019-11-04 20:12 | DIS ---
DATE OF ADMISSION: 11/01/2019 DATE OF DISCHARGE: 11/04/2019 DISCHARGE DISPOSITION: longterm facility. DISCHARGE MEDICATION: IV vancomycin for 2 weeks. All other home medications were left unchanged. Patient is unable to recall all of his home medications. Patient was seen and examined on the day of discharge. Denies any new complaints. Please refer to my progress note for details. Patient is a 69-year-old male, who presented to the emergency room with abdominal pain along with diarrhea. He also reported some pain in his left testicle. Please refer to the history and physical for further details. Patient underwent a CT scan of the abdomen and pelvis in the emergency room that was consistent with fluid collection in the iliopsoas muscle concerning for abscess. He underwent CT-guided drainage of the abscess. His cultures were consistent with MRSA sensitive to vancomycin. He was initially placed on broad-spectrum antibiotics that has been transitioned to IV ceftriaxone. He will complete two weeks of IV vancomycin. He has a drain from the iliopsoas abscess. He will need a repeat imaging prior to discontinuation of the drain per radiologist, Dr. Hopkins. He was advised to follow up with Dr. Curran in 2 weeks. Patient complained of some testicular pain on admission. This has significantly improved. Testicular ultrasound was negative for torsion. There was generalized heterogenicity of the right testicle of uncertain etiology. He was advised to follow up with Urology as outpatient. His left testicle appeared to be normal with good arterial flow. There was a left epididymal cyst. Patient will be discharged to long-term facility for IV antibiotics. His abdominal pain has significantly improved. FINAL DIAGNOSES: 1. Sepsis due to left psoas abscess due to methicillin-resistant Staphylococcus aureus. 2. Abdominal/back pain/testicular pain, improved. 3. Abnormal LFTs secondary to sepsis, improving. 4. Left lower extremity swelling of uncertain etiology, questionable cellulitis, improving. Deep venous thrombosis was ruled out. 5. Hypomagnesemia, replaced. 6. Obesity with a BMI of 33. 7. Hypertension. 8. Hyperlipidemia. 9. Constipation. 10. Cluster headaches. TIME SPENT: Time coordinating the discharge of this patient was 40 minutes. Side effects of the medications were discussed. Job ID: [id number]
--- NOTE | 2019-11-05 13:11 | CT ---
CT-guided retroperitoneal abscess drainage Conscious sedation: At least 40 minutes spent with patient for conscious sedation. FINDINGS: After explaining the procedure and answering all questions, limited CT imaging of the pelvi s was performed. Sterile technique, buffered local anesthesia, CT guidance, conscious sedation, and a left lower quadr ant approach were used to carefully advance a 19-gauge needle into the left iliopsoas fluid collection. A 0.035 Amplatz guidewire was placed on position. Tract was dilated to 8 [place]. A locking loop 8 Carter alh drain was carefully placed into the abscess cavity and retention suture secured. A total volume of 70 cc light yellow purulent material was aspirated. A portion sent to laboratory for analysis. Rep eat imaging shows decompression of the fluid cavity. The catheter was secured externally with 0 silk suture and left draining to gravity. Patient tolerate d the procedure well and was returned in unchanged condition. IMPRESSION : Technically successful CT-guided drainage left iliopsoas abscess. Transcribed Date/Time: 11/05/2019 1:11 PM
== END 2019-11-04 17:03 | DRG 871 ==
LOC: ERS 20:02 → T4-A 11-01 02:12
PROVIDERS: ADMIT Family Medicine; ATTEND Family Medicine
PROC: 0K9P3ZZ Drainage of Left Hip Muscle, Percutaneous Approach (ICD-10-PCS; principal; 2019-11-01)
DX: A41.02 Sepsis due to Methicillin resistant Staphylococcus aureus (principal); K68.12 Psoas muscle abscess; L03.116 Cellulitis of left lower limb; E83.42 Hypomagnesemia; I10 Essential (primary) hypertension; E78.5 Hyperlipidemia, unspecified; K59.00 Constipation, unspecified; E78.00 Pure hypercholesterolemia, unspecified; R51 Headache; N50.812 Left testicular pain; E66.9 Obesity, unspecified; Z96.651 Presence of right artificial knee joint; F32.9 Major depressive disorder, single episode, unspecified; F41.9 Anxiety disorder, unspecified; Z68.33 Body mass index [BMI] 33.0-33.9, adult; Z85.46 Personal history of malignant neoplasm of prostate; Z88.0 Allergy status to penicillin; Z88.8 Allergy status to other drugs, medicaments and biological substances; Z88.1 Allergy status to other antibiotic agents; Z91.040 Latex allergy status; Z86.718 Personal history of other venous thrombosis and embolism; Z79.01 Long term (current) use of anticoagulants; Z90.49 Acquired absence of other specified parts of digestive tract
CPT/HCPCS: 36415; 36416; 49060; 74177; 76870; 77002; 80053; 80202; 80306; 81003; 81015; 82248; 83605; 83690; 83735; 85025; 85610; 85730; 86140; 87040; 87070; 87077; 87086; 87186; 87205; 87635; 93976; 96365; 96367; 96375; J0696; J1644; J2250; J2270; J2405; J3010; J3030; J3370; J3475; J3490; J7030; J7050; Q9967; U0003

== ENCOUNTER 2019-11-09 22:46 | Emergency (ER) | payer MEDICARE ==
[2019-11-09] MEDS ORDERED: diphenhydrAMINE 50 MG/ML VIAL ONE (23:12)
[2019-11-09] MEDS ORDERED: methylPREDNISolone Sod Succ/PF 125 MG/2 ML VIAL ONE (23:12)
[2019-11-09] MEDS ORDERED: Metoclopramide HCl 10 MG/2 ML VIAL ONE (23:12)
[2019-11-10] MEDS ORDERED: Metoclopramide HCl 10 MG TAB ONE (02:12)
== END 2019-11-10 02:16 ==
LOC: ERS 22:46
DX: G44.009 Cluster headache syndrome, unspecified, not intractable (principal); E78.5 Hyperlipidemia, unspecified; E78.00 Pure hypercholesterolemia, unspecified; I10 Essential (primary) hypertension; F41.9 Anxiety disorder, unspecified; F32.9 Major depressive disorder, single episode, unspecified
CPT/HCPCS: 94760; 96365; 96366; 96375; J1200; J2765; J2930

== ENCOUNTER 2019-12-04 12:03 | Inpatient (IN) | payer MEDICARE, OTHER ==
[2019-12-04 12:44] LABS: #Eosinphils 0.3 thou/uL (0.0-0.7); #Lymphocytes 1.5 thou/uL (1.20-3.40); #Monocytes 0.6 thou/uL (0.11-0.59); #Neutrophils 5.2 thou/uL (1.40-6.50); %Basophils 0.4 % (0.0-1.0); %Eosinophils 4.4 % (0.0-10.0); %Lymphocytes 19.3 % (21.0-51.0); %Monocytes 7.6 % (0.0-10.0); %Neutrophils 68.3 % (42.0-75.0); Hemoglobin 11.4 g/dL (14.0-18.0); Mean Corpuscular HGB CONC 32.4 g/dL (32.0-36.0); Mean Corpuscular Hemoglobin 31.1 pg (27.0-31.0); Mean Corpuscular Volume 96.1 fL (78.0-98.0); Mean Platelet Volume 7.3 fL (7.4-10.4); Platelet Count 210 thou/uL (130-400); RBC Distribution Width 15.4 % (11.5-14.5); Red Blood Cell (RBC) Count 3.67 mill/uL (4.70-6.10); White Blood Cell (WBC) Count 7.5 thou/uL (4.8-10.8)
--- NOTE | 2019-12-04 12:44 | RAD ---
Portable frontal chest radiograph: 12/04/2019 COMPARISON: 04/18/2019 HISTORY: Leg pain and swelling FINDINGS: Stable elevation of the right hemidiaphragm limits assessment of the right base. Heart and mediastinal contours are stable. Dorsal column stimulating leads overlie the thoracic spine. The sixth rib on the left appears absent posteriorly. IMPRESSION: Chronic appearing findings as above. No lobar consolidation or alveolar edema.
[2019-12-04 13:05] LABS: ALT (SGPT) 13 U/L (8-55); AST (SGOT) 16 U/L (5-34); Albumin 3.4 g/dL (3.4-4.8); Alkaline Phosphatase 83 U/L (40-110); Anion Gap 12 mmol/L (10-20); BUN (Urea Nitrogen) 16 mg/dL (8.4-25.7); Bilirubin, Total 0.2 mg/dL (0.2-1.2); Calc. Creatinine Clearance 0 mL/min (70-130); Calcium 8.2 mg/dL (7.8-10.44); Carbon Dioxide 25 mmol/L (23-31); Chloride 105 mmol/L (98-107); Estimated GFR-MDRD 72; Globulin 2.8 g/dL (2.4-3.5); Glucose 104 mg/dL (83-110); Potassium 4.3 mmol/L (3.5-5.1); Protein, Total 6.2 g/dL (5.8-8.1); Sodium 138 mmol/L (136-145)
[2019-12-04] MEDS ORDERED: Morphine 4 MG/ML VIAL ONE ×2 (13:37→17:29)
[2019-12-04] MEDS ORDERED: Iopamidol-370 76% 500 ML 1 ML ONE (14:18)
--- NOTE | 2019-12-04 16:14 | CT ---
EXAM: CT ABDOMEN AND PELVIS HISTORY: Bilateral lower extremity pain and swelling of the last few days. Previous percutaneous drai nage catheter removal. COMPARISON: 11/16/2019 Procedure: Multiple contiguous axial images were obtained and a CT of the abdomen and pelvis with IV contrast. C oronal reformats were performed. FINDINGS: Lower Chest: Scarring and atelectasis in the lung bases Vessels: Normal caliber aorta. Heart: Normal heart size. No significant pericardial effusion Abdomen: Portal vein:Patent Gallbladder: Contracted. No CT evidence of cholecystitis Liver: within normal limits. Pancreas: within normal limits. Spleen: within normal limits. Adrenals: within normal limits. Kidneys: Symmetric enhancement. Redemonstration of multiple exophytic hypodense lesions. Bilaterally no obstructive uropathy. Peritoneum: No ascites or free air, no fluid collection. Bowel: Small and mid small bowel loops are fluid-filled and dilated. There appears to be a transition al segment associated with the umbilical hernia. The afferent loops are prominent while the efferent loops are decompressed. Distal to the hernia, bowel loops are also decompressed. Mild mesent kyle stranding at the level of the hernia. Normal ileocecal junction. Normal caliber appendix. Scattered fecal material in a nondistended, nondilated colon. Diverticulosis, without evidence of div erticulitis. Mesentery and Retroperitoneum: No enlarged mesenteric or retroperitoneal lymph nodes. Abdominal Wall: Umbilical hernia containing mesenteric fat. There does appear to be bowel incarcerat ion. Hernia defect is approximately 3.7 cm. Pelvis: Reproductive Organs: Reproductive organs are unremarkable. Pelvis: No mass, free air or pelvic lymphadenopathy. Redemonstration of a subtle peripherally enhanci ng hypodense lesion along the left external iliac chain measuring 1.7 x 4.0 cm. Residual pelvic abscess is suspected. The overall size of this lesion has not changed since exam, previously measurin g 4.0 x 1.3 cm. Mild peripheral scarring/fibrosis is noted. Small component of fluid does track along the left psoas muscle.. Bladder: within normal limits. Left and right groin: Redemonstration of bilateral inguinal lymphadenopathy. Bones: within normal limits. IMPRESSION: 1. Small bowel obstruction at the level of the umbilical hernia. General surgical consultation is rec ommended. 2. Residual fluid collection and phlegmonous change in the left hemipelvis, tracking along the left e xternal iliac artery and left psoas muscle. 3. Bilateral inguinal lymphadenopathy, left greater than right which is presumed to be reactive. Results study discussed with Dr. Coronel 12/04/2019 at 4:51 PM Code CR Transcribed Date/Time: 12/04/2019 4:41 PM
--- NOTE | 2019-12-04 16:33 | CT ---
Exam: CT angiogram of the chest HISTORY: Dyspnea. Elevated d-dimer. COMPARISON: None TECHNIQUE: CT angiogram of the chest is performed in the axial plane. Three-dimensional reformatted i mages are submitted for interpretation FINDINGS: Mediastinum: No mass, lymphadenopathy or hematoma. HEART: Normal size. No significant pericardial fluid. Aorta: No aneurysm or dissection Upper solid abdominal viscera: No abnormality enhancement. Trachea and central bronchi: Patent Pleural spaces: No effusion Lung parenchyma: No masses. Consolidation in the right lower lobe is favored to be atelectasis. There are dependent atelectatic changes Pneumothorax: None Osseous structures: No lytic or blastic lesions. Presumed partial resection of the posterior left six th rib. Pulmonary arteries: Adequate contrast opacification pulmonary arterial system to the level of segment al arteries. No filling defect to suggest pulmonary embolism IMPRESSION: 1. No evidence of pulmonary artery embolism to the level segmental arteries.
[2019-12-04] MEDS ORDERED: cefTRIAXone\\ROCEPHIN 1 GM VIAL ONE (18:47)
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
[2019-12-04] MEDS ORDERED: cloNIDine 0.1 MG TAB PO PRN (21:36)
[2019-12-04] MEDS ORDERED: hydrALAZINE 20 MG/ML VIAL SLOW IVP PRN (21:36)
[2019-12-04] MEDS ORDERED: Labetalol HCl 100 MG/20 ML VIAL SLOW IVP PRN (21:36)
[2019-12-04] MEDS ORDERED: Guaifenesin DM 100-10/5 ML UDCUP PO PRN (21:36)
[2019-12-04] MEDS ORDERED: Electrolyte Replacement Protoc 1 EACH EACH FS SCH (21:45)
[2019-12-04] MEDS ORDERED: Electrolyte Replacement Protocol FS PRN (21:45)
[2019-12-04] MEDS ORDERED: Zolpidem Tartrate 5 MG TAB PO PRN (21:46)
[2019-12-04] MEDS: Morphine 2 MG/ML VIAL SLOW IVP PRN (22:07)
[2019-12-04 23:06] VITALS: BMI 37.2
[2019-12-05] MEDS: Sodium Chloride 0.9% 1,000 ML IV SCH ×2 (00:02→18:22)
[2019-12-05 05:05] LABS: #Eosinphils 0.3 thou/uL (0.0-0.7); #Lymphocytes 0.6 thou/uL (1.20-3.40); #Monocytes 0.8 thou/uL (0.11-0.59); #Neutrophils 10.5 thou/uL (1.40-6.50); %Basophils 0.1 % (0.0-1.0); %Eosinophils 2.4 % (0.0-10.0); %Lymphocytes 4.9 % (21.0-51.0); %Monocytes 6.8 % (0.0-10.0); %Neutrophils 85.8 % (42.0-75.0); Hemoglobin 12.2 g/dL (14.0-18.0); Mean Corpuscular HGB CONC 31.2 g/dL (32.0-36.0); Mean Corpuscular Hemoglobin 30.6 pg (27.0-31.0); Mean Corpuscular Volume 98.2 fL (78.0-98.0); Platelet Count 210 thou/uL (130-400); RBC Distribution Width 15.4 % (11.5-14.5); Red Blood Cell (RBC) Count 3.99 mill/uL (4.70-6.10); White Blood Cell (WBC) Count 12.2 thou/uL (4.8-10.8)
[2019-12-05 05:25] LABS: Anion Gap 11 mmol/L (10-20); BUN (Urea Nitrogen) 14 mg/dL (8.4-25.7); Calc. Creatinine Clearance 132 mL/min (70-130); Calcium 8.2 mg/dL (7.8-10.44); Carbon Dioxide 26 mmol/L (23-31); Chloride 105 mmol/L (98-107); Estimated GFR-MDRD 85; Glucose 79 mg/dL (83-110); Magnesium 2.1 mg/dL (1.6-2.6); Potassium 4.4 mmol/L (3.5-5.1); Sodium 138 mmol/L (136-145)
[2019-12-05] MEDS: Morphine 2 MG/ML VIAL SLOW IVP PRN ×4 (05:34→21:32)
[2019-12-05] MEDS: Amlodipine 5 MG TAB PO SCH (09:11)
[2019-12-05] MEDS: Gabapentin 300 MG CAP PO SCH (09:11)
[2019-12-05] MEDS: Famotidine 20 MG TAB PO SCH ×2 (09:11→20:17)
[2019-12-05] MEDS: Rosuvastatin 10 MG TAB PO SCH (09:12)
[2019-12-05] MEDS: Rizatriptan Benzoate 10 MG MLT TAB PO SCH (09:12)
[2019-12-05] MEDS: Meloxicam 7.5 MG TAB PO SCH (09:12)
[2019-12-05] MEDS: Primidone 50 MG TAB PO SCH (09:12)
[2019-12-05] MEDS: Losartan 25 MG TAB PO SCH (09:12)
--- NOTE | 2019-12-05 09:30 | ULT ---
DOPPLER VENOUS ULTRASOUND OF BOTH LOWER EXTREMITIES: 12/04/19 INDICATION: Lower extremity pain. TECHNIQUE: Loera scale, color Doppler, and vascular duplex with spectral analysis was performed of the deep venou s structures of both lower extremities. The common femoral vein, superficial femoral vein, popliteal vein, posterior tibial vein, proximal greater saphenous, and proximal profunda veins were assessed bi laterally. FINDINGS: There is normal compression and normal flow and augmentation seen within the deep venous structures o f both lower extremities. IMPRESSION: No evidence of DVT in both lower extremities. POS: [facility]
[2019-12-05] MEDS ORDERED: Succinylcholine Chloride 20 MG/ML 10 ml SYRINGE FS ONE (11:21)
[2019-12-05] MEDS ORDERED: PROPOFOL 200 MG/20 ML VIAL ONE (11:21)
[2019-12-05] MEDS ORDERED: Lidocaine 1% PF 5 ML VIAL ONE (11:21)
[2019-12-05] MEDS ORDERED: Rocuronium Bromide 10 MG/ML (10ML VIAL) ONE (11:21)
[2019-12-05] MEDS ORDERED: Glycopyrrolate 0.2 MG/ML 5 ML SYRINGE ONE (11:21)
[2019-12-05] MEDS ORDERED: Ondansetron PF 4 MG/2 ML Vial ONE (11:21)
--- NOTE | 2019-12-05 11:53 | PDOC.GSPN ---
Surgery Progress Note: Subj - Subjective Narrative: Patient is feeling so-so this morning. He has had some intermittent nausea but no vomiting. He is still having abdominal pain but not much worse than his baseline. Afebrile. Hypertensive but other vital signs normal. Abdomen is soft and nondistended. He has tenderness with reduction of his hernia but it is still fairly easily reducible. Bowel sounds are present. The erythema and swelling in his legs have improved. Assessment/plan: Longstanding ventral incisional hernia, but presenting with bowel obstruction related to this during this admission. The hernia is reducible but repair is indicated to prevent recurrent obstruction. Unfortunately given his ongoing inflammation in the psoas area I think it is inadvisable to place mesh so we are going to repair this open with suture alone. He is at high risk of recurrence but this can be addressed at a later date. If he has significant adhesions then lysis of adhesions may be necessary as well. If he has evidence of stricture or other damage to the bowel then bowel resection may be necessary but I think this is unlikely. He is on the OR schedule for this afternoon pending COVID testing. He is on scheduled vancomycin due to MRSA from his psoas abscess. Surgery Progress Note: Obj - Vital signs Vital signs: Vital Signs - Most Recent Temp Pulse Resp BP Pulse Ox 98.0 F 96 18 168/96 H 95 12/05/19 08:45 12/05/19 09:11 12/05/19 08:45 12/05/19 09:04 12/05/19 08:45 Surgery Progress Note: Results - Labs Result Diagrams: 12/05/19 04:52 12/05/19 04:52 Lab results: Laboratory Results - last 24 hr 12/05/19 12/05/19 04:52 04:52 WBC 12.2 H RBC 3.99 L Hgb 12.2 L Hct 39.2 L MCV 98.2 H MCH 30.6 MCHC 31.2 L RDW 15.4 H Plt Count 210 MPV 7.0 L Neutrophils % 85.8 H Lymphocytes % 4.9 L Monocytes % 6.8 Eosinophils % 2.4 Basophils % 0.1 Neutrophils # 10.5 H Lymphocytes # 0.6 L Monocytes # 0.8 H Eosinophils # 0.3 Basophils # 0.0 Sodium 138 Potassium 4.4 Chloride 105 Carbon Dioxide 26 Anion Gap 11 BUN 14 Creatinine 0.88 Estimated GFR (MDRD) 85 Glucose 79 L Calcium 8.2 Magnesium 2.1
[2019-12-05 13:27] LABS: SARS-CoV-2 MS2 Positive; SARS-CoV-2 N Gene Negative; SARS-CoV-2 S Gene Negative; SARS-CoV-2 by NAA Not Detected (NotDetected); SARS-CoV-2 orf1ab Negative
[2019-12-05] MEDS ORDERED: Lidocaine 1% w/Epinephrine 1:100K 20 ML VIAL ONE (15:05)
[2019-12-05] MEDS ORDERED: Bupivacaine 0.25% HCL 30 ML VIAL ONE (15:05)
[2019-12-05] MEDS ORDERED: cefOXitin Sodium/Dextrose 2 GM/50 ML BAG ONE (15:37)
[2019-12-05] MEDS ORDERED: SUGAMMADEX SODIUM 200 MG/2 ML VIAL ONE (15:38)
[2019-12-05] MEDS ORDERED: Fentanyl 100 MCG/2 ML VIAL ONE ×3 (15:38→18:37)
[2019-12-05] MEDS ORDERED: Ketamine 50 MG/ML (10ML VIAL) ONE (15:57)
--- NOTE | 2019-12-05 16:32 | CON ---
DATE OF CONSULTATION: 12/05/2019 HISTORY OF PRESENT ILLNESS: Mr. Beaulieu is a 69-year-old morbidly obese male with history of high-grade high-risk prostate cancer in which due to extensive abdominal surgeries and his comorbidities, he was sent to Dr. Lv Barrera to undergo radical prostatectomy. He underwent robotic-assisted laparoscopic radical prostatectomy back in October of 2018, with bilateral pelvic lymph node dissection. Final pathology demonstrating high-risk disease T3b with seminal vesicle invasion. Margins negative and PSA has been fany. He has been challenging in many ways due to his medical comorbidities. He also has history of depression. He is significantly bothered by stress incontinence, status post radical prostatectomy. I have informed him that he needs his prostate cancer treated with androgen deprivation therapy and radiation therapy. He had declined and deferred multiple times and subsequently agreed. He has seen Radiation Oncology, plan is to proceed with treatment and radiation. He recently called our office regarding vague abdominal discomfort and lower extremity edema and transition to the emergency room. Workup demonstrated incarcerated bowel obstruction with hernia. Therefore, he is undergoing surgery this afternoon with Dr. Goodwin. I have been informed regarding his surgical intervention today, as he has a history of prostate cancer, I did provide a courtesy visit today to place an indwelling Rosales catheter, which he agrees. He has been fully informed that the Rosales catheter will be removed once he recovers from his hernia repair and his mental status recovery, as I informed him that he can not have an indwelling Rosales catheter for a protracted period of time due to stress incontinence. PAST MEDICAL HISTORY: Seizures, hypertension, hyperlipidemia, neuropathy of the lower extremities, history of tobacco abuse, major depression, anxiety, alcohol abuse, left epididymal cyst, prostate cancer, multiple incisional hernias. PAST SURGICAL HISTORY: Includes; 1. Left femur fracture. 2. Knee fusion. 3. L4, L5, L6 fusion. 4. Removal of lumbar hardware. 5. Prostate biopsy in 1997. 6. Meniscus repair in March 2018. 7. Spinal cord stimulation in May 2018. 8. Knee replacement, Dr. Waller in May 2019. 9. Wound debridement of his knee in May 2017. 10. Right total knee replacement in May 2019. 11. Cystoscopy, prostate biopsy in June 2018. 12. Robotic prostatectomy, lysis of adhesion in October [address] [place] 13[address] drainage of left psoas abscess in October 2019. FAMILY HISTORY: Positive for hypertension. SOCIAL HISTORY: Former smoker. ALLERGIES: TO GABAPENTIN, NEOSPORIN, AND NSAIDS. REVIEW OF SYSTEMS: History of suicide ideation. PHYSICAL EXAMINATION: VITAL SIGNS: Stable. Temperature 98, pulse 94, respiratory rate 18, oxygen saturation 96, and blood pressure 177/94. I's and O's; 650 of urine output. GENERAL: The patient is in no acute distress, however, appears fatigued. HEENT: Grossly unremarkable. HEART: Regular rate. LUNGS: Clear. ABDOMEN: Soft, tenderness at the umbilicus with multiple abdominal incisions. GENITOURINARY: Irritative changes of the penis and scrotum due to chronic incontinence. Circumcised. A 16-Bangladeshi Rosales catheter passed without significant issues. EXTREMITIES: Demonstrating chronic edema. No calf tenderness. DIAGNOSTIC STUDIES: 1. CT of the abdomen and pelvis on November 16, 2019, demonstrates no evidence of hydronephrosis, small bowel obstruction due to umbilical hernia, residual fluid collection in the left hemipelvis along the left psoas. Bilateral inguinal lymphadenopathy, left greater than right. 2. CT angio of the chest is negative for pulmonary embolus. 3. Lower extremity Dopplers negative for DVT. IMPRESSION AND PLAN: 1. Mr. Beaulieu is a 69-year-old male with high-risk prostate cancer, status post robotic prostatectomy at an outside facility. 2. Chronic stress incontinence post prostatectomy, 16-Bangladeshi Rosales catheter placed without significant issues. patient awaiting surgery for hernia repair. Rosales catheter can be removed per discretion of General Surgery. It was placed without significant issues. Job ID: [id number] [facility]
[2019-12-05] MEDS ORDERED: Promethazine HCl 25 MG/ML VIAL SLOW IVP PRN (18:14)
[2019-12-05] MEDS ORDERED: HYDROmorphone 2 MG/ML VIAL SLOW IVP PRN (18:14)
[2019-12-05] MEDS ORDERED: Ondansetron HCl/PF 4 MG/2 ML Vial IVP PRN (18:14)
[2019-12-05] MEDS ORDERED: HYDROmorphone 0.5 MG/0.5 ML SYRINGE ONE (18:28)
[2019-12-05] MEDS: Amitriptyline HCl 25 MG TAB PO SCH (20:17)
[2019-12-06 05:31] LABS: #Eosinphils 0.1 thou/uL (0.0-0.7); #Lymphocytes 0.8 thou/uL (1.20-3.40); #Monocytes 0.7 thou/uL (0.11-0.59); #Neutrophils 5.1 thou/uL (1.40-6.50); %Basophils 0.2 % (0.0-1.0); %Eosinophils 2.1 % (0.0-10.0); %Lymphocytes 11.8 % (21.0-51.0); %Monocytes 10.3 % (0.0-10.0); %Neutrophils 75.6 % (42.0-75.0); Hemoglobin 10.7 g/dL (14.0-18.0); Mean Corpuscular HGB CONC 31.7 g/dL (32.0-36.0); Mean Corpuscular Hemoglobin 31.4 pg (27.0-31.0); Mean Corpuscular Volume 98.9 fL (78.0-98.0); Platelet Count 170 thou/uL (130-400); RBC Distribution Width 15.6 % (11.5-14.5); Red Blood Cell (RBC) Count 3.41 mill/uL (4.70-6.10); White Blood Cell (WBC) Count 6.8 thou/uL (4.8-10.8)
[2019-12-06 05:56] LABS: Anion Gap 13 mmol/L (10-20); BUN (Urea Nitrogen) 11 mg/dL (8.4-25.7); Calc. Creatinine Clearance 155 mL/min (70-130); Calcium 7.6 mg/dL (7.8-10.44); Carbon Dioxide 20 mmol/L (23-31); Chloride 106 mmol/L (98-107); Estimated GFR-MDRD Greater than 90; Glucose 85 mg/dL (83-110); Magnesium 1.9 mg/dL (1.6-2.6); Potassium 4.1 mmol/L (3.5-5.1); Sodium 135 mmol/L (136-145)
[2019-12-06] MEDS: Morphine 2 MG/ML VIAL SLOW IVP PRN ×2 (06:03→10:11)
[2019-12-06] MEDS ORDERED: Magnesium 2 GM/50 ML 2 GM in Premix Bag 1 BAG IVPB SCH ×2 (06:30→12:00)
--- NOTE | 2019-12-06 07:28 | PDOC.GSPN ---
Surgery Progress Note: Subj - Subjective Narrative: Patient is post-op day 1 from his surgical repair from his incisional abdominal hernia. Patient reports that he slept well last night. Patient says that his abdomen is distended and that he feels gassy. He also states that movement causes pain in his abdomen globally and he reports soreness in his abdomen. Dressing looks clean and is holding well. He is afebrile. Bowel sounds are present. A&P: Benjamin Beaulieu is a 69 y/o male post-op day 1 from his ventral incisional abdominal hernia repair. Patient has ongoing MRSA infection and will continue vancomycin as scheduled. Will manage his abdominal pain with tylenol as needed. Will continue his HTN home regimen. Follow up after discharge within 2 weeks outpatient. Addendum: Patient was tolerating clear liquid diet but had no flatus when I saw him in the morning with the medical student. I instructed his nurse to advance him to full liquids once he is passing flatus. Doing well from a surgical standpoint. Surgery Progress Note: Obj - Vital signs Vital signs: Vital Signs - Most Recent Temp Pulse Resp BP Pulse Ox 98.4 F 96 16 119/78 93 L 12/06/19 07:21 12/06/19 07:21 12/06/19 07:21 12/06/19 07:21 12/06/19 07:21 - Physical Exam General: no distress Cardiovascular: regular rate and rhythm Respiratory: clear to auscultation, normal expansion, normal respiratory effort , breath sounds present Abdomen: positive bowel sounds, distended, tender Surgery Progress Note: Results - Labs Result Diagrams: 12/07/19 05:06 12/07/19 05:06 Lab results: Laboratory Results - last 24 hr 12/06/19 12/06/19 05:14 05:14 WBC 6.8 RBC 3.41 L Hgb 10.7 L Hct 33.7 L MCV 98.9 H MCH 31.4 H MCHC 31.7 L RDW 15.6 H Plt Count 170 MPV 7.0 L Neutrophils % 75.6 H Lymphocytes % 11.8 L Monocytes % 10.3 H Eosinophils % 2.1 Basophils % 0.2 Neutrophils # 5.1 Lymphocytes # 0.8 L Monocytes # 0.7 H Eosinophils # 0.1 Basophils # 0.0 Sodium 135 L Potassium 4.1 Chloride 106 Carbon Dioxide 20 L Anion Gap 13 BUN 11 Creatinine 0.75 Estimated GFR (MDRD) Greater than 90 Glucose 85 Calcium 7.6 L Magnesium 1.9
[2019-12-06 08:01] LABS: Vancomycin, Trough 21.4 ug/mL
--- NOTE | 2019-12-06 08:42 | PDOC.HOSPP ---
- Subjective Encounter Date: 12/05/19 Encounter Time: 10:30 Subjective: pt up in bed getting ready to go to surgery. - Objective Vital Signs & Weight: Vital Signs (12 hours) Temp Pulse Resp BP Pulse Ox 12/06/19 07:21 98.4 F 96 16 119/78 93 L 12/06/19 05:02 98.2 F 95 17 116/77 93 L 12/06/19 00:41 98.5 F 100 17 108/71 94 L Weight Weight 267 lb I&O: 12/05/19 12/06/19 12/07/19 06:59 06:59 06:59 Intake Total 300 950 Output Total 1000 2200 Balance -700 -1250 Result Diagrams: 12/06/19 05:14 12/06/19 05:14 Hospitalist ROS - Review of Systems Respiratory: denies: cough, dry, shortness of breath, hemoptysis, SOB with excertion, pleuritic pain, sputum, wheezing, other Cardiovascular: denies: chest pain, palpitations, orthopnea, paroxysmal noc. dyspnea, edema, light headedness, other Gastrointestinal: reports: abdominal pain - Medication Medications: Active Medications Generic Name Dose Route Start Last Admin Trade Name Freq PRN Reason Stop Dose Admin Amitriptyline HCl 25 mg 12/05/19 21:00 12/05/19 20:17 Elavil PO 25 mg HS ZAIRE Administration Amlodipine Besylate 5 mg 12/05/19 09:00 12/05/19 09:11 Norvasc PO Not Given DAILY ZAIRE Divalproex Sodium 1,000 mg 12/05/19 09:00 12/05/19 09:11 Depakote Er PO Not Given DAILY ZAIRE Famotidine 20 mg 12/05/19 09:00 12/05/19 20:17 Pepcid PO 20 mg BID ZAIRE Administration Gabapentin 300 mg 12/05/19 09:00 12/05/19 09:11 Neurontin PO Not Given DAILY ZAIRE Hydralazine HCl 10 mg 12/04/19 21:36 12/05/19 09:04 Apresoline SLOW IVP 10 mg Q6H PRN Administration SBP GREATER THAN 160 Sodium Chloride 1,000 mls @ 50 mls/hr 12/04/19 22:30 12/05/19 18:22 Normal Saline 0.9% IV Not Given .Q20H ZAIRE Vancomycin HCl 2 gm/ Sodium 500 mls @ 250 mls/hr 12/05/19 20:00 12/05/19 20: 17 Chloride IVPB 12/11/19 22:00 500 mls 0800,2000 ZAIRE Administration Losartan Potassium 100 mg 12/05/19 09:00 12/05/19 09:12 Cozaar PO Not Given DAILY [facility] Meloxicam 7.5 mg 12/05/19 09:00 12/05/19 09:12 Mobic PO Not Given DAILY [facility] Morphine Sulfate 2 mg 12/04/19 21:36 12/06/19 06:03 Morphine SLOW IVP 2 mg Q4H PRN Administration Moderate to Severe Pain (4-10) Pantoprazole Sodium 40 mg 12/05/19 09:00 12/05/19 09:12 Protonix PO Not Given DAILY [facility] Primidone 200 mg 12/05/19 09:00 12/05/19 09:12 Mysoline PO Not Given DAILY [facility] Rizatriptan Benzoate 10 mg 12/05/19 09:00 12/05/19 09:12 Maxalt-Wildlife Biology Technician PO Not Given DAILY [facility] Rosuvastatin Calcium 10 mg 12/05/19 09:00 12/05/19 09:12 Crestor PO Not Given DAILY [facility] - Exam Neck: negative: supple, symmetric, no JVD, no thyromegaly, no lymphadenopathy, no carotid bruit, JVD Heart: negative: RRR, no murmur, no gallops, no rubs, normal peripheral pulses, irregular, diminshed peripheral pulses, murmur present, II/IV, III/IV Respiratory: negative: CTAB, no wheezes, no rales, no ronchi, normal chest expansion, no tachypnea, normal percussion, rales, rhonchi, tachypneic, wheezes Gastrointestinal: soft, normal bowel sounds Hosp A/P (1) Abdominal pain Code(s): R10.9 - UNSPECIFIED ABDOMINAL PAIN Status: Acute (2) Urinary hesitancy Code(s): R39.11 - HESITANCY OF MICTURITION Status: Acute (3) Hyperlipidemia Code(s): E78.5 - HYPERLIPIDEMIA, UNSPECIFIED Status: Chronic (4) Hypertension Code(s): I10 - ESSENTIAL (PRIMARY) HYPERTENSION Status: Chronic (5) MRSA (methicillin resistant Staphylococcus aureus) Code(s): A49.02 - METHICILLIN RESIS STAPH INFECTION, UNSP SITE Status: Acute - Plan We will continue IV antibiotics. Infectious disease has been consulted. CT scan indicated residual fluid collection and phlegmonous changes. Patient had his pigtail removed a week ago. Rosales catheter was placed in by urology given his history of radical prostatectomy in the past. Per notes Rosales can be removed if okay with general surgery. Rosales was placed without significant issues.
--- NOTE | 2019-12-06 09:40 | RAD ---
EXAM: XR Abdomen 2 View DATE: 12/06/2019 12:01 AM INDICATION: Abdominal incisional hernia repair COMPARISON: CT the abdomen and pelvis with contrast dated December 04, 2019 FINDING: There are worsening changes of a moderate to high-grade partial small bowel obstruction. Th ere are numerous fluid and gas-filled loops of small bowel within the upper abdomen. No free air is evident on the decubitus films. There is partial visualization of a dorsal column stimulator overlyin g the midline thoracic spine. There is a vertebral plasty change involving L2. IMPRESSION:Worsening partial small bowel obstruction. No free air demonstrated.
[2019-12-06] MEDS ORDERED: Vancomycin 1.5 GRAM/300 ML BAG 1.5 GM in Premix Bag 1 BAG IVPB SCH (10:00)
[2019-12-06] MEDS: Rizatriptan Benzoate 10 MG MLT TAB PO SCH (10:04)
[2019-12-06] MEDS: Losartan 25 MG TAB PO SCH (10:05)
[2019-12-06] MEDS: Meloxicam 7.5 MG TAB PO SCH (10:05)
[2019-12-06] MEDS: Famotidine 20 MG TAB PO SCH ×2 (10:05→21:59)
[2019-12-06] MEDS: Rosuvastatin 10 MG TAB PO SCH (10:05)
[2019-12-06] MEDS: Gabapentin 300 MG CAP PO SCH (10:06)
[2019-12-06] MEDS: Amlodipine 5 MG TAB PO SCH (10:06)
[2019-12-06] MEDS: Primidone 50 MG TAB PO SCH (10:07)
[2019-12-06] MEDS: Enoxaparin Sodium 40 MG/0.4 ML SYRINGE SC SCH (10:07)
[2019-12-06] MEDS: Vancomycin HCl 1.75 GM in Sodium Chloride 0.9% 500 ML IVPB SCH ×2 (10:15→21:59)
[2019-12-06] MEDS: Sodium Chloride 0.9% 1,000 ML IV SCH ×2 (12:30→17:36)
[2019-12-06] MEDS: Acetaminophen 325 MG TAB PO PRN ×2 (15:52→21:59)
[2019-12-06] MEDS ORDERED: traMADol HCl 50 MG TAB PO PRN (16:16)
[2019-12-06] MEDS ORDERED: Nystatin Powder 15 GM BOT TOP PRN (17:00)
--- NOTE | 2019-12-06 17:14 | PDOC.HOSPP ---
- Subjective Encounter Date: 12/06/19 Encounter Time: 16:00 Subjective: pt up in bed complains of pain to his lower back. - Objective Vital Signs & Weight: Vital Signs (12 hours) Temp Pulse Resp BP BP Pulse Ox 12/06/19 16:22 100.1 F H 12/06/19 15:50 101.2 F H 12/06/19 15:37 109 H 18 134/84 93 L 12/06/19 10:53 98.3 F 94 18 133/85 93 L 12/06/19 10:06 96 119/78 12/06/19 07:21 98.4 F 96 16 119/78 93 L Weight Weight 267 lb I&O: 12/05/19 12/06/19 12/07/19 06:59 06:59 06:59 Intake Total 300 950 Output Total 1000 [id number] [facility] [phone] Result Diagrams: 12/06/19 05:14 12/06/19 05:14 Hospitalist ROS - Review of Systems Cardiovascular: denies: chest pain, palpitations, orthopnea, paroxysmal noc. dyspnea, edema, light headedness, other Gastrointestinal: denies: nausea, vomiting, abdominal pain, diarrhea, constipation, melena, hematochezia, other Genitourinary: denies: dysuria, frequency, incontinence, hematuria, retention, other Musculoskeletal: reports: other (Lower back pain) - Medication Medications: Active Medications Generic Name Dose Route Start Last Admin Trade Name Freq PRN Reason Stop Dose Admin Acetaminophen 650 mg 12/04/19 21:36 12/06/19 15:52 Tylenol PO 650 mg Q4H PRN Administration Headache/Fever/Mild Pain (1-3) Amitriptyline HCl 25 mg 12/05/19 21:00 12/05/19 20:17 Elavil PO 25 mg HS ZAIRE Administration Amlodipine Besylate 5 mg 12/05/19 09:00 12/06/19 10:06 Norvasc PO 5 mg DAILY ZAIRE Administration Divalproex Sodium 1,000 mg 12/05/19 09:00 12/06/19 10:05 Depakote Er PO 1,000 mg DAILY ZAIRE Administration Enoxaparin Sodium 40 mg 12/06/19 09:00 12/06/19 10:07 Lovenox SC 40 mg 0900 ZAIRE Administration Famotidine 20 mg 12/05/19 09:00 12/06/19 10:05 Pepcid PO 20 mg BID ZAIRE Administration Gabapentin 300 mg 12/05/19 09:00 12/06/19 10:06 Neurontin PO 300 mg DAILY ZAIRE Administration Hydralazine HCl 10 mg 12/04/19 21:36 12/05/19 09:04 Apresoline SLOW IVP 10 mg Q6H PRN Administration SBP GREATER THAN 160 Sodium Chloride 1,000 mls @ 50 mls/hr 12/04/19 22:30 12/06/19 12:30 Normal Saline 0.9% IV 1,000 mls .Q20H ZAIRE Administration Vancomycin HCl 1.75 gm/ Sodium 500 mls @ 250 mls/hr 12/06/19 10:00 12/06/19 10:15 Chloride IVPB 500 mls 1000,2200 ZAIRE Administration Losartan Potassium 100 mg 12/05/19 09:00 12/06/19 10:05 Cozaar PO 100 mg DAILY ZAIRE Administration Meloxicam 7.5 mg 12/05/19 09:00 12/06/19 10:05 Mobic PO 7.5 mg DAILY ZAIRE Administration Pantoprazole Sodium 40 mg 12/05/19 09:00 12/06/19 10:05 Protonix PO 40 mg DAILY ZAIRE Administration Primidone 200 mg 12/05/19 09:00 12/06/19 10:07 Mysoline PO 200 mg DAILY ZAIRE Administration Rizatriptan Benzoate 10 mg 12/05/19 09:00 12/06/19 10:04 Maxalt-Customer Acquisition Manager PO 10 mg DAILY ZAIRE Administration Rosuvastatin Calcium 10 mg 12/05/19 09:00 12/06/19 10:05 Crestor PO 10 mg DAILY ZAIRE Administration - Exam Neck: negative: supple, symmetric, no JVD, no thyromegaly, no lymphadenopathy, no carotid bruit, JVD Heart: negative: RRR, no murmur, no gallops, no rubs, normal peripheral pulses, irregular, diminshed peripheral pulses, murmur present, II/IV, III/IV Respiratory: negative: CTAB, no wheezes, no rales, no ronchi, normal chest expansion, no tachypnea, normal percussion, rales, rhonchi, tachypneic, wheezes Gastrointestinal: soft, normal bowel sounds Gastrointestinal - other findings: Patient has an abdominal binder mild pain upon palpation Extremities: 1+ LE edema Extremities - other findings: Left extremity shorter than right Hosp A/P (1) Abdominal pain Code(s): R10.9 - UNSPECIFIED ABDOMINAL PAIN Status: Acute (2) Urinary hesitancy Code(s): R39.11 - HESITANCY OF MICTURITION Status: Acute (3) Hyperlipidemia Code(s): E78.5 - HYPERLIPIDEMIA, UNSPECIFIED Status: Chronic (4) Hypertension Code(s): I10 - ESSENTIAL (PRIMARY) HYPERTENSION Status: Chronic (5) MRSA (methicillin resistant Staphylococcus aureus) Code(s): A49.02 - METHICILLIN RESIS STAPH INFECTION, UNSP SITE Status: Acute (6) SBO (small bowel obstruction) Code(s): K56.609 - UNSP INTESTNL OBST, UNSP TO PARTIAL VERSUS COMPLETE OBST Status: Acute - Plan We will continue IV antibiotics. Infectious disease has been consulted. CT scan indicated residual fluid collection and phlegmonous changes. Patient had his pigtail removed a week ago. Rosales catheter was placed in by urology given his history of radical prostatectomy in the past. Per notes Rosales can be removed if okay with general surgery. Rosales was placed without significant issues. 12/05 patient underwent a ventral hernia repair on 12/04. Will increase patient' s pain meds. Will continue current antibiotics. Infectious disease still to see the patient. Patient currently is on full liquid diet advance per surgeon. Rosales catheter to be DC'd per surgeon. Physical therapy has worked with the patient. Patient has had multiple surgeries done on his left extremity. Patient still on normal saline at 50 cc an hour may discontinue once patient tolerates a regular diet.
[2019-12-06] MEDS: Morphine 4 MG/ML VIAL SLOW IVP PRN (17:36)
[2019-12-06] MEDS: Amitriptyline HCl 25 MG TAB PO SCH (21:59)
[2019-12-07] MEDS: Morphine 4 MG/ML VIAL SLOW IVP PRN ×4 (00:26→23:15)
[2019-12-07] MEDS: Ibuprofen 600 MG TAB PO PRN ×2 (00:33→21:04)
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
[2019-12-07 05:28] LABS: #Eosinphils 0.2 thou/uL (0.0-0.7); #Lymphocytes 1.2 thou/uL (1.20-3.40); #Monocytes 1.1 thou/uL (0.11-0.59); #Neutrophils 7.4 thou/uL (1.40-6.50); %Basophils 0.1 % (0.0-1.0); %Eosinophils 2.3 % (0.0-10.0); %Lymphocytes 11.8 % (21.0-51.0); %Monocytes 10.9 % (0.0-10.0); Hemoglobin 10.9 g/dL (14.0-18.0); Mean Corpuscular HGB CONC 32.7 g/dL (32.0-36.0); Mean Corpuscular Hemoglobin 31.5 pg (27.0-31.0); Mean Corpuscular Volume 96.3 fL (78.0-98.0); Mean Platelet Volume 7.4 fL (7.4-10.4); Platelet Count 188 thou/uL (130-400); RBC Distribution Width 15.4 % (11.5-14.5); Red Blood Cell (RBC) Count 3.46 mill/uL (4.70-6.10); White Blood Cell (WBC) Count 9.9 thou/uL (4.8-10.8)
[2019-12-07 06:16] LABS: Anion Gap 16 mmol/L (10-20); BUN (Urea Nitrogen) 10 mg/dL (8.4-25.7); Calc. Creatinine Clearance 137 mL/min (70-130); Calcium 7.9 mg/dL (7.8-10.44); Carbon Dioxide 19 mmol/L (23-31); Chloride 105 mmol/L (98-107); Estimated GFR-MDRD 89; Glucose 104 mg/dL (83-110); Magnesium 2.3 mg/dL (1.6-2.6); Sodium 136 mmol/L (136-145)
[2019-12-07] MEDS: Gabapentin 300 MG CAP PO SCH (08:26)
[2019-12-07] MEDS: Rosuvastatin 10 MG TAB PO SCH (08:26)
[2019-12-07] MEDS: Meloxicam 7.5 MG TAB PO SCH (08:27)
[2019-12-07] MEDS: Famotidine 20 MG TAB PO SCH ×2 (08:27→20:53)
[2019-12-07] MEDS: Amlodipine 5 MG TAB PO SCH (08:27)
[2019-12-07] MEDS: Enoxaparin Sodium 40 MG/0.4 ML SYRINGE SC SCH (08:30)
[2019-12-07] MEDS: Primidone 50 MG TAB PO SCH (09:25)
[2019-12-07] MEDS: Rizatriptan Benzoate 10 MG MLT TAB PO SCH (09:27)
[2019-12-07] MEDS: Vancomycin HCl 1.75 GM in Sodium Chloride 0.9% 500 ML IVPB SCH ×2 (09:30→21:01)
[2019-12-07] MEDS: Losartan 25 MG TAB PO SCH (11:00)
--- NOTE | 2019-12-07 12:59 | PDOC.GSPN ---
Surgery Progress Note: Subj - Subjective Narrative: Patient is having a lot of abdominal soreness related to his surgery but is otherwise feeling well. He is tolerating a full liquid diet and passing gas and had a small bowel movement this morning. No nausea or vomiting. Vital signs are okay. Abdomen is soft and nondistended. His incision is healing well. No evidence of recurrent hernia. Bowel sounds are present. Assessment/plan: Partial bowel obstruction due to recurrent ventral incisional hernia. This has been repaired and he is tolerating advancement of diet. From a surgical standpoint he is stable for discharge home. He should follow-up in my clinic in 2 weeks time. Surgery Progress Note: Obj - Vital signs Vital signs: Vital Signs - Most Recent Temp Pulse Resp BP Pulse Ox 98.4 F 91 16 97/66 97 12/07/19 11:17 12/07/19 11:17 12/07/19 11:17 12/07/19 11:17 12/07/19 11:17 Surgery Progress Note: Results - Labs Result Diagrams: 12/07/19 05:06 12/07/19 05:06 Lab results: Laboratory Results - last 24 hr 12/07/19 12/07/19 05:06 05:06 WBC 9.9 RBC 3.46 L Hgb 10.9 L Hct 33.3 L MCV 96.3 MCH 31.5 H MCHC 32.7 RDW 15.4 H Plt Count 188 MPV 7.4 Neutrophils % 75.0 Lymphocytes % 11.8 L Monocytes % 10.9 H Eosinophils % 2.3 Basophils % 0.1 Neutrophils # 7.4 H Lymphocytes # 1.2 Monocytes # 1.1 H Eosinophils # 0.2 Basophils # 0.0 Sodium 136 Potassium 4.0 Chloride 105 Carbon Dioxide 19 L Anion Gap 16 BUN 10 Creatinine 0.85 Estimated GFR (MDRD) 89 Glucose 104 Calcium 7.9 Magnesium 2.3
[2019-12-07] MEDS ORDERED: traMADol HCl 50 MG TAB PO PRN ×2 (13:01)
--- NOTE | 2019-12-07 15:15 | PDOC.HOSPP ---
- Subjective Encounter Date: 12/07/19 Encounter Time: 12:45 Subjective: Patient was seen and examined in bed. This morning pruritic rash noted in his anterior abdominal wall where his surgical wound was dressed within the parameters of the dressings. As mild abdominal pain around the wound otherwise no major pains. Also complains about pain in his legs bilaterally below the knee with numbness. Complains about inability to sleep during the night - Objective Vital Signs & Weight: Vital Signs (12 hours) Temp Pulse Resp BP Pulse Ox 12/07/19 11:17 98.4 F 91 16 97/66 97 12/07/19 08:27 98 12/07/19 07:56 98.3 F 88 16 120/79 95 12/07/19 03:30 98.6 F 98 18 94/63 92 L Weight Weight 267 lb I&O: 12/06/19 12/07/19 12/08/19 06:59 06:59 06:59 Intake Total 950 2877 400 Output Total 2200 2825 Balance -1250 52 400 Result Diagrams: 12/13/19 05:03 12/13/19 05:03 Hospitalist ROS - Review of Systems Constitutional: denies: fever, chills, weakness Respiratory: denies: cough, shortness of breath, SOB with excertion Gastrointestinal: denies: nausea, diarrhea, constipation Musculoskeletal: denies: leg pain (Bilaterally below the kneesthis is been chronic however) Neurological: denies: numbness (Below the knees bilaterally.) - Medication Medications: Active Medications Generic Name Dose Route Start Last Admin Trade Name Freq PRN Reason Stop Dose Admin Acetaminophen 650 mg 12/04/19 21:36 12/06/19 21:59 Tylenol PO 650 mg Q4H PRN Administration Headache/Fever/Mild Pain (1-3) Amitriptyline HCl 25 mg 12/05/19 21:00 12/06/19 21:59 Elavil PO 25 mg HS ZAIRE Administration Amlodipine Besylate 5 mg 12/05/19 09:00 12/07/19 08:27 Norvasc PO 5 mg DAILY ZAIRE Administration Divalproex Sodium 1,000 mg 12/05/19 09:00 12/07/19 09:26 Depakote Er PO 1,000 mg DAILY ZAIRE Administration Enoxaparin Sodium 40 mg 12/06/19 09:00 12/07/19 08:30 Lovenox SC 40 mg 0900 ZAIRE Administration Famotidine 20 mg 12/05/19 09:00 12/07/19 08:27 Pepcid PO 20 mg BID ZAIRE Administration Gabapentin 300 mg 12/05/19 09:00 12/07/19 08:26 Neurontin PO 300 mg DAILY ZAIRE Administration Hydralazine HCl 10 mg 12/04/19 21:36 12/05/19 09:04 Apresoline SLOW IVP 10 mg Q6H PRN Administration SBP GREATER THAN 160 Vancomycin HCl 1.75 gm/ Sodium 500 mls @ 250 mls/hr 12/06/19 10:00 12/07/19 09:30 Chloride IVPB 500 mls 1000,2200 ZAIRE Administration Sodium Chloride 1,000 mls @ 50 mls/hr 12/06/19 17:30 12/06/19 17:36 Normal Saline 0.9% IV 1,000 mls .Q20H ZAIRE Administration Ibuprofen 600 mg 12/06/19 17:01 12/07/19 00:33 Motrin PO 600 mg BID PRN Administration Fever > 101 Losartan Potassium 100 mg 12/05/19 09:00 12/06/19 10:05 Cozaar PO 100 mg DAILY ZAIRE Administration Meloxicam 7.5 mg 12/05/19 09:00 12/07/19 08:27 Mobic PO 7.5 mg DAILY ZAIRE Administration Morphine Sulfate 4 mg 12/06/19 17:02 12/07/19 08:25 Morphine SLOW IVP 4 mg Q4H PRN Administration Moderate to Severe Pain (4-10) Nystatin 1 gm 12/06/19 17:00 12/06/19 21:58 Mycostatin Powder TOP 1 gm TID PRN Administration Topical Irritations Pantoprazole Sodium 40 mg 12/05/19 09:00 12/07/19 08:26 Protonix PO 40 mg DAILY ZAIRE Administration Primidone 200 mg 12/05/19 09:00 12/07/19 09:25 Mysoline PO 200 mg DAILY ZAIRE Administration Rizatriptan Benzoate 10 mg 12/05/19 09:00 12/07/19 09:27 Maxalt-Account Liaison PO 10 mg DAILY ZAIRE Administration Rosuvastatin Calcium 10 mg 12/05/19 09:00 12/07/19 08:26 Crestor PO 10 mg DAILY AZIRE Administration - Exam General Appearance: awake alert Eye: PERRL, anicteric sclera ENT: normocephalic atraumatic Heart: RRR, no murmur, normal peripheral pulses Respiratory: no wheezes, no rales, normal chest expansion Gastrointestinal: soft, non-tender, normal bowel sounds, no palpable masses Gastrointestinal - other findings: Incision clean and dry. Erythematous hives around the area of abdominal wo Skin - other findings: Rashes on anterior abdominal wall Hosp A/P - Plan This is a 69-year-old male patient admitted on account of partial bowel obstruction secondary to recurrent ventral incisional hernia. He is status post hernia repair. He also has MSSA bacteremia for which she is on ongoing vancomycin. He is otherwise generally stable Partially obstructing ventral hernia Status post repair Patient generally stable Possible discharge tomorrow from surgery standpoint. MRSA On vancomycin no monitoring temperature Will observe for 1 more night if no spike in temperature will discharge in the morning. Skin rash Likely reaction to wound dressing material and not abnormal. Remove dressing and keep area dry.
--- NOTE | 2019-12-07 15:20 | EKG ---
Test Reason : Blood Pressure : / mmHG Vent. Rate : 100 BPM Atrial Rate : 100 BPM P-R Int : 172 ms QRS Dur : 094 ms QT Int : 372 ms P-R-T Axes : 043 009 032 degrees QTc Int : 479 ms Normal sinus rhythm Normal ECG Confirmed by ELIGIO FLOYD DO ([id number]), rewrite editor KADI ANTONIO ([id number]) on 12/07/2019 3:19:48 PM Referred By: MARIEL Confirmed By:ELIGIO FLOYD DO
--- NOTE | 2019-12-07 17:00 | PDOC.OP ---
Operative Note - Operative Note Operative Note: PROCEDURE: Repair of recurrent, obstructing ventral incisional hernia SURGEON: Jahaira Goodwin M.D. DATE: 12/05/2019 PREOPERATIVE DIAGNOSIS: Recurrent, obstructing ventral incisional hernia POSTOPERATIVE DIAGNOSIS: Recurrent, obstructing ventral incisional hernia HISTORY: Patient with multiply recurrent ventral incisional hernia for which elective repair was planned after weight loss and resolution of iliopsoas abscess. Unfortunately, he presented to the hospital with worsening pain and small bowel obstruction at the level of his hernia. The hernia was reducible but immediately recurred with any activity so recommendation was made to proceed with suture repair only. FINDINGS: Dense adhesions to hernia sac and to surrounding mesh. Bowel viable and without significant distention. PROCEDURE IN DETAIL: After informed consent was obtained and appropriate preoperative antibiotics continued, the patient was taken to the operating room where he was placed in supine position and general anesthesia was administered. He was prepped and draped in standard sterile fashion and local anesthesia infused to the skin and subcutaneous tissues overlying his reducible ventral incisional hernia. The widened scar was excised and dissection carried down to the hernia sac which was dissected free to the level of the fascia which was attenuated. The hernia sac was opened and dense adhesions were found between the small bowel and the hernia sac. These were taken down sharply through the avascular plane. The hernia sac was resected and discarded. The patient was found to have mesh both superior and inferior to the hernia defect with dense adhesions between the small bowel and the surrounding mesh. These adhesions were taken down through the avascular plane for several centimeters in each direction. Superior to the hernia defect, there were only a few bowel adhesions , following which omental adhesions to the mesh were encountered. A plane was able to be developed between the omentum and the mesh superiorly allowing good exposure. Laterally and inferiorly however, the mesh was directly adherent to the underlying small intestine and in some areas was so dense that a portion of the mesh had to be left on the wall of the intestine to prevent injury. Once the adhesions were taken down for several centimeters in all directions the hernia defect was found to close with the least amount of tension in the transverse direction as it was wider than tall. Seprafilm was placed to the space between the fascia and the underlying bowel and omentum. The fascia and the underlying mesh were reapproximated with running PDS and interrupted nylon sutures with excellent technical result. The subcutaneous fat was then mobilized off of the underlying fascia to allow to come together in the midline without tension. The wound was irrigated and local anesthesia infused for postoperative pain control. The subcutaneous tissues were reapproximated with [id number] 3-0 Monocryl suture and the skin was closed with a running 4-0 subcuticular Monocryl suture. Estimated blood loss was minimal. There were no complications. There were no specimens.
[2019-12-07] MEDS: Ondansetron PF 4 MG/2 ML Vial IVP PRN ×2 (17:24→23:20)
[2019-12-07] MEDS: Sodium Chloride 0.9% 1,000 ML IV SCH (17:25)
[2019-12-07] MEDS: Melatonin 3 MG TAB PO PRN (20:52)
[2019-12-07] MEDS: Amitriptyline HCl 25 MG TAB PO SCH (20:53)
[2019-12-07] MEDS: Docusate 100 MG CAP PO SCH (20:53)
[2019-12-07] MEDS: Promethazine HCl 12.5 MG in Sodium Chloride 0.9% 50 ML IVPB PRN (20:58)
[2019-12-07 21:21] LABS: Vancomycin, Trough 21.5 ug/mL
[2019-12-08] MEDS: Promethazine HCl 12.5 MG in Sodium Chloride 0.9% 50 ML IVPB PRN (04:47)
[2019-12-08] MEDS: Morphine 4 MG/ML VIAL SLOW IVP PRN ×5 (05:06→21:49)
[2019-12-08] MEDS: Ondansetron PF 4 MG/2 ML Vial IVP PRN (06:00)
[2019-12-08] MEDS: Enoxaparin Sodium 40 MG/0.4 ML SYRINGE SC SCH (09:00)
--- NOTE | 2019-12-08 09:44 | RAD ---
Exam: 2 views abdomen COMPARISON: 12/06/2019 HISTORY: Small bowel obstruction FINDINGS: Supine and upright views of the abdomen demonstrate persistent small bowel dilatation with differential air-fluid levels. There is still some air and fecal material in a decompressed colon. Small bowel loops in the right hemiabdomen are less distended. A partial obstructive process is favor ed. No pneumoperitoneum on the upright projection. There does appear to be a right-sided pleural effusion . Dorsal column stimulators are identified IMPRESSION: Partial small bowel obstruction.
[2019-12-08 11:07] LABS: Anion Gap 15 mmol/L (10-20); BUN (Urea Nitrogen) 10 mg/dL (8.4-25.7); Band 22 % (5-11); Calc. Creatinine Clearance 155 mL/min (70-130); Calcium 8.7 mg/dL (7.8-10.44); Carbon Dioxide 22 mmol/L (23-31); Chloride 104 mmol/L (98-107); Estimated GFR-MDRD Greater than 90; Glucose 115 mg/dL (83-110); Hemoglobin 11.4 g/dL (14.0-18.0); Lymphocytes 5 % (21-51); MDiff Complete? YES; Mean Corpuscular HGB CONC 32.7 g/dL (32.0-36.0); Mean Corpuscular Hemoglobin 31.3 pg (27.0-31.0); Mean Corpuscular Volume 95.7 fL (78.0-98.0); Mean Platelet Volume 7.1 fL (7.4-10.4); Monocytes 5 % (0-10); Neutrophil 68 % (42-75); Platelet Count 212 thou/uL (130-400); Potassium 4.4 mmol/L (3.5-5.1); RBC Distribution Width 15.1 % (11.5-14.5); Red Blood Cell (RBC) Count 3.64 mill/uL (4.70-6.10); Sodium 137 mmol/L (136-145); White Blood Cell (WBC) Count 8.8 thou/uL (4.8-10.8)
[2019-12-08] MEDS: Vancomycin 1.5 GRAM/300 ML BAG 1.5 GM in Premix Bag 1 BAG IVPB SCH ×2 (13:45→21:48)
[2019-12-08] MEDS: Dextrose 5 % And 0.9 % NaCl 1,000 ML IV SCH (14:03)
[2019-12-08] MEDS: Polyethylene Glycol 3350 17 GM Packet PO SCH (14:10)
[2019-12-08] MEDS: Rizatriptan Benzoate 10 MG MLT TAB PO SCH (14:10)
[2019-12-08] MEDS: Famotidine 20 MG TAB PO SCH ×3 (14:10→20:37)
[2019-12-08] MEDS: Meloxicam 7.5 MG TAB PO SCH ×2 (14:10→14:26)
[2019-12-08] MEDS: Losartan 25 MG TAB PO SCH ×2 (14:11→14:26)
[2019-12-08] MEDS: Gabapentin 300 MG CAP PO SCH ×2 (14:11→14:26)
[2019-12-08] MEDS: Docusate 100 MG CAP PO SCH ×3 (14:12→20:37)
[2019-12-08] MEDS: Rosuvastatin 10 MG TAB PO SCH ×2 (14:12→14:26)
[2019-12-08] MEDS: Amlodipine 5 MG TAB PO SCH ×2 (14:12→14:24)
[2019-12-08] MEDS: Primidone 50 MG TAB PO SCH (14:21)
[2019-12-08] MEDS: Sodium Chloride 0.9% 1,000 ML IV SCH (14:48)
--- NOTE | 2019-12-08 15:01 | RAD ---
Exam: One view abdomen HISTORY: Evaluate NG tube placement FINDINGS: Redemonstration of dorsal column stimulators. Distended small bowel loops are redemonstrate d. There appears to be a nasogastric tube with the nasogastric tube terminating in the distal body of the stomach. IMPRESSION: Nasogastric tube presumed to be terminating in the distal body of the stomach.
--- NOTE | 2019-12-08 15:16 | PDOC.HOSPP ---
- Subjective Encounter Date: 12/08/19 Encounter Time: 11:00 Subjective: Patient was seen and examined in bed. He complains of nausea and intermittent vomiting with abdominal pain and belching. - Objective Vital Signs & Weight: Vital Signs (12 hours) Temp Pulse Resp BP Pulse Ox 12/08/19 14:24 95 12/08/19 11:55 97.9 F 95 18 115/79 94 L 12/08/19 07:17 98.3 F 88 20 133/87 94 L 12/08/19 04:00 98 F 99 18 141/89 H 95 Weight Weight 267 lb I&O: 12/07/19 12/08/19 12/09/19 06:59 06:59 06:59 Intake Total 2877 4080 Output Total 2825 1053 Balance 52 3027 Result Diagrams: 12/13/19 05:03 12/13/19 05:03 Hospitalist ROS - Review of Systems Constitutional: denies: fever, chills, sweats Respiratory: denies: cough, shortness of breath, SOB with excertion, wheezing Cardiovascular: denies: chest pain, palpitations, orthopnea, paroxysmal noc. dyspnea Gastrointestinal: reports: nausea, vomiting, abdominal pain. denies: diarrhea Genitourinary: denies: dysuria, frequency Musculoskeletal: reports: leg pain - Medication Medications: Active Medications Generic Name Dose Route Start Last Admin Trade Name Freq PRN Reason Stop Dose Admin Acetaminophen 650 mg 12/04/19 21:36 12/06/19 21:59 Tylenol PO 650 mg Q4H PRN Administration Headache/Fever/Mild Pain (1-3) Amitriptyline HCl 25 mg 12/05/19 21:00 12/07/19 20:53 Elavil PO 25 mg HS ZAIRE Administration Amlodipine Besylate 5 mg 12/05/19 09:00 12/08/19 14:24 Norvasc PO Not Given DAILY ZAIRE Divalproex Sodium 1,000 mg 12/05/19 09:00 12/08/19 14:25 Depakote Er PO Not Given DAILY ZAIRE Docusate Sodium 100 mg 12/07/19 21:00 12/08/19 14:25 Colace PO Not Given BID ZAIRE Enoxaparin Sodium 40 mg 12/06/19 09:00 12/08/19 09:00 Lovenox SC 40 mg 0900 ZAIRE Administration Famotidine 20 mg 12/05/19 09:00 12/08/19 14:26 Pepcid PO Not Given BID [facility] Gabapentin 300 mg 12/05/19 09:00 12/08/19 14:26 Neurontin PO Not Given DAILY [facility] Hydralazine HCl 10 mg 12/04/19 21:36 12/05/19 09:04 Apresoline SLOW IVP 10 mg Q6H PRN Administration SBP GREATER THAN 160 Promethazine HCl 12.5 mg/ 50.5 mls @ 202 mls/hr 12/04/19 21:36 12/08/19 04:47 Sodium Chloride IVPB 50.5 mls Q6H PRN Administration Nausea/vomiting, use second Vancomycin HCl 1.5 gm/ Device 300 mls @ 200 mls/hr 12/08/19 10:00 12/08/19 13 :45 IVPB 12/12/19 00:01 300 mls 1000,2200 ZAIRE Administration Dextrose/Sodium Chloride 1,000 mls @ 100 mls/hr 12/08/19 12:45 12/08/19 14:03 D5 0.9% Ns IV 1,000 mls .Q10H ZAIRE Administration Ibuprofen 600 mg 12/06/19 17:01 12/07/19 21:04 Motrin PO 600 mg BID PRN Administration Fever > 101 Losartan Potassium 100 mg 12/05/19 09:00 12/08/19 14:26 Cozaar PO Not Given DAILY [facility] Melatonin 3 mg 12/07/19 15:49 12/07/19 20:52 Melatonin PO 3 mg HS PRN Administration Insomnia Meloxicam 7.5 mg 12/05/19 09:00 12/08/19 14:26 Mobic PO Not Given DAILY [facility] Morphine Sulfate 4 mg 12/06/19 17:02 12/08/19 13:44 Morphine SLOW IVP 4 mg Q4H PRN Administration Moderate to Severe Pain (4-10) Nystatin 1 gm 12/06/19 17:00 12/06/19 21:58 Mycostatin Powder TOP 1 gm TID PRN Administration Topical Irritations Ondansetron HCl 4 mg 12/04/19 21:36 12/08/19 06:00 Zofran IVP 4 mg Q6H PRN Administration Nausea/Vomiting, use 1st Pantoprazole Sodium 40 mg 12/05/19 09:00 12/08/19 14:26 Protonix PO Not Given DAILY ZAIRE Polyethylene Glycol 17 gm 12/08/19 09:00 12/08/19 14:10 Miralax PO Not Given DAILY ZAIRE Primidone 200 mg 12/05/19 09:00 12/08/19 14:21 Mysoline PO Not Given DAILY ZAIRE Rizatriptan Benzoate 10 mg 12/05/19 09:00 12/08/19 14:10 Maxalt-Technical Administrator PO 10 mg DAILY ZAIRE Administration Rosuvastatin Calcium 10 mg 12/05/19 09:00 12/08/19 14:26 Crestor PO Not Given DAILY ZAIRE - Exam Eye: PERRL, anicteric sclera Neck: supple, no JVD Heart: RRR, no murmur, no gallops, normal peripheral pulses Respiratory: no wheezes, no ronchi Gastrointestinal: normal bowel sounds, tender to palpation, distended Gastrointestinal - other findings: Hyperactive bowel sounds Skin: normal turgor, no lesions Neurological: cranial nerve grossly intact Psychiatric: A&O x 3 Hosp A/P - Plan This is a 69-year-old male patient admitted on account of partial bowel obstruction secondary to recurrent ventral incisional hernia. He is status post hernia repair. He also has MSSA bacteremia for which she is on ongoing vancomycin. This morning he developed nausea and vomiting and chest x-ray notes partial small bowel obstruction Partially small bowel obstructing secondary to ventral hernia Status post repair This seems to have recurred Will place on n.p.o. for now Switch fluids to D5 NS at 100 mils per hour Appreciate surgery input. Psoas absecess with MRSA On vancomycin. monitoring temperature Patients temperature has been stable Discussed with ID about discontinuing vancomycin Skin rash on anterior abdominal wall almost resolved Insomnia No significant improvement on melatonin We will monitor for more night
--- NOTE | 2019-12-08 17:30 | PDOC.GSPN ---
Surgery Progress Note: Subj - Subjective Narrative: ` Patient had nausea and worsening abdominal pain after eating regular food yesterday. He had tolerated clears without problems so I put him back on a clear liquid diet but he began vomiting after that and I was not informed. Abdominal films this morning showed some distention of the small bowel loops. When I saw him this morning he was still nauseated although he had not vomited recently. I asked the nurse to place an NG tube and there was a large amount of output immediately. Abdomen is more distended and tender to palpation with diminished bowel sounds. Incision looks okay. Vital signs are okay. Assessment/plan: Status post hernia repair doing well from the hernia repair. He had extensive bowel adhesions and appears to have a recurrent small bowel obstruction. I have placed an NG tube and made him n.p.o. We will see how he does after a period of bowel rest and decompression. If he requires adhesio lysis this is likely to be a very difficult process given the density of the bowel adhesions to his intra-abdominal mesh. Hopefully surgery can be avoided. Surgery Progress Note: Obj - Vital signs Vital signs: Vital Signs - Most Recent Temp Pulse Resp BP Pulse Ox 97.6 F 91 18 115/77 95 12/08/19 16:12 12/08/19 16:12 12/08/19 16:12 12/08/19 16:12 12/08/19 16:12 Surgery Progress Note: Results - Labs Result Diagrams: 12/08/19 10:38 12/08/19 10:38 Lab results: Laboratory Results - last 24 hr 12/08/19 12/08/19 10:38 10:38 WBC 8.8 RBC 3.64 L Hgb 11.4 L Hct 34.8 L MCV 95.7 MCH 31.3 H MCHC 32.7 RDW 15.1 H Plt Count 212 MPV 7.1 L Neutrophils % (Manual) 68 Band Neuts % (Manual) 22 H Lymphocytes % (Manual) 5 L Monocytes % (Manual) 5 Sodium 137 Potassium 4.4 Chloride 104 Carbon Dioxide 22 L Anion Gap 15 BUN 10 Creatinine 0.75 Estimated GFR (MDRD) Greater than 90 Glucose 115 H Calcium 8.7
[2019-12-08] MEDS: Amitriptyline HCl 25 MG TAB PO SCH (20:36)
[2019-12-09] MEDS: Morphine 4 MG/ML VIAL SLOW IVP PRN ×4 (03:33→22:27)
[2019-12-09] MEDS: Dextrose 5 % And 0.9 % NaCl 1,000 ML IV SCH ×4 (03:39→22:42)
[2019-12-09 05:57] LABS: #Eosinphils 0.3 thou/uL (0.0-0.7); #Lymphocytes 0.9 thou/uL (1.20-3.40); #Monocytes 0.9 thou/uL (0.11-0.59); #Neutrophils 3.9 thou/uL (1.40-6.50); %Basophils 0.1 % (0.0-1.0); %Eosinophils 4.9 % (0.0-10.0); %Lymphocytes 15.4 % (21.0-51.0); %Monocytes 14.4 % (0.0-10.0); %Neutrophils 65.1 % (42.0-75.0); Hemoglobin 10.7 g/dL (14.0-18.0); Mean Corpuscular HGB CONC 31.2 g/dL (32.0-36.0); Mean Corpuscular Hemoglobin 30.3 pg (27.0-31.0); Mean Corpuscular Volume 97.1 fL (78.0-98.0); Mean Platelet Volume 6.9 fL (7.4-10.4); Platelet Count 211 thou/uL (130-400); Red Blood Cell (RBC) Count 3.54 mill/uL (4.70-6.10)
[2019-12-09 06:13] LABS: Anion Gap 16 mmol/L (10-20); BUN (Urea Nitrogen) 11 mg/dL (8.4-25.7); Calc. Creatinine Clearance 153 mL/min (70-130); Calcium 8.3 mg/dL (7.8-10.44); Carbon Dioxide 21 mmol/L (23-31); Chloride 105 mmol/L (98-107); Estimated GFR-MDRD Greater than 90; Glucose 80 mg/dL (83-110); Potassium 3.9 mmol/L (3.5-5.1); Sodium 138 mmol/L (136-145)
[2019-12-09] MEDS: Vancomycin 1.5 GRAM/300 ML BAG 1.5 GM in Premix Bag 1 BAG IVPB SCH (10:26)
[2019-12-09] MEDS: Amlodipine 5 MG TAB PO SCH (10:31)
[2019-12-09] MEDS: Meloxicam 7.5 MG TAB PO SCH (10:31)
[2019-12-09] MEDS: Famotidine 20 MG TAB PO SCH ×2 (10:31→22:27)
[2019-12-09] MEDS ORDERED: Chloraseptic Spray 180 ml Bottle PO PRN (10:31)
[2019-12-09] MEDS: Rosuvastatin 10 MG TAB PO SCH (10:31)
[2019-12-09] MEDS: Losartan 25 MG TAB PO SCH (10:32)
[2019-12-09] MEDS: Docusate 100 MG CAP PO SCH ×2 (10:33→22:26)
[2019-12-09] MEDS: Rizatriptan Benzoate 10 MG MLT TAB PO SCH (10:33)
[2019-12-09] MEDS: Enoxaparin Sodium 40 MG/0.4 ML SYRINGE SC SCH (10:33)
[2019-12-09] MEDS: Gabapentin 300 MG CAP PO SCH (10:33)
[2019-12-09] MEDS: Polyethylene Glycol 3350 17 GM Packet PO SCH (10:36)
[2019-12-09] MEDS: Primidone 50 MG TAB PO SCH (10:46)
--- NOTE | 2019-12-09 12:17 | PDOC.GSPN ---
Surgery Progress Note: Subj - Subjective Narrative: Patient is still pretty sore in the upper abdomen. No nausea. He has been eating a lot of ice chips to soothe his throat since the NG tube was placed. He is passing "lots of gas". Afebrile. Vital signs and labs okay. NG output yesterday 6500 mL. Abdomen is soft and nondistended with appropriate caty-incisional tenderness. Incision looks good. Bowel sounds are present. Assessment/plan: Small bowel obstruction, symptomatically improved since placement of NG tube. Patient is passing gas so this is a partial obstruction, hopefully due to some postoperative swelling after lysis of adhesions for hernia repair. He does have extensive intra-abdominal adhesions with dense adhesions between his bowel and his intra-abdominal mesh, so he is at risk for bowel obstruction from adhesions as well, but I am hopeful that this is just some postoperative edema which will resolve. He is at very high risk for bowel injury and other complications of surgery given his extensive intra-abdominal mesh and extensive adhesions, so we are going to try to manage this nonoperatively. I am going to leave the NG tube in for today and get repeat abdominal films tomorrow. If those are improved I will order a small bowel follow-through. Surgery Progress Note: Obj - Vital signs Vital signs: Vital Signs - Most Recent Temp Pulse Resp BP Pulse Ox 97.7 F 80 18 117/77 95 12/09/19 11:21 12/09/19 11:21 12/09/19 11:21 12/09/19 11:21 12/09/19 11:21 Surgery Progress Note: Results - Labs Result Diagrams: 12/09/19 05:28 12/09/19 05:28 Lab results: Laboratory Results - last 24 hr 12/09/19 12/09/19 05:28 05:28 WBC 6.0 RBC 3.54 L Hgb 10.7 L Hct 34.3 L MCV 97.1 MCH 30.3 MCHC 31.2 L RDW 15.0 H Plt Count 211 MPV 6.9 L Neutrophils % 65.1 Lymphocytes % 15.4 L Monocytes % 14.4 H Eosinophils % 4.9 Basophils % 0.1 Neutrophils # 3.9 Lymphocytes # 0.9 L Monocytes # 0.9 H Eosinophils # 0.3 Basophils # 0.0 Sodium 138 Potassium 3.9 Chloride 105 Carbon Dioxide 21 L Anion Gap 16 BUN 11 Creatinine 0.76 Estimated GFR (MDRD) Greater than 90 Glucose 80 L Calcium 8.3
[2019-12-09] MEDS: Cepastat Lozenges 1 LOZ PO PRN (19:14)
[2019-12-09 22:06] LABS: Vancomycin, Trough 22.5 ug/mL
[2019-12-09] MEDS: Amitriptyline HCl 25 MG TAB PO SCH (22:26)
[2019-12-09] MEDS: Melatonin 3 MG TAB PO PRN (22:26)
--- NOTE | 2019-12-09 23:34 | PDOC.HOSPP ---
- Subjective Encounter Date: 12/09/19 Encounter Time: 11:00 Subjective: Patient was seen and examined in bed. Had NG tube in place complained of abdominal bloating and pain. - Objective Vital Signs & Weight: Vital Signs (12 hours) Temp Pulse Resp BP Pulse Ox 12/09/19 20:24 97.9 F 75 16 134/88 95 12/09/19 15:53 98.1 F 79 18 114/77 92 L Weight Admit Weight 267 lb Weight 267 lb I&O: 12/08/19 12/09/19 12/10/19 06:59 06:59 06:59 Intake Total 4080 1860 2000 Output Total 1053 7220 1800 Balance 3188 -0617 200 Result Diagrams: 12/13/19 05:03 12/13/19 05:03 Hospitalist ROS - Review of Systems Constitutional: reports: fever, chills, sweats, weakness Cardiovascular: reports: chest pain, palpitations, orthopnea Genitourinary: reports: dysuria, frequency - Medication Medications: Active Medications Generic Name Dose Route Start Last Admin Trade Name Freq PRN Reason Stop Dose Admin Acetaminophen 650 mg 12/04/19 21:36 12/06/19 21:59 Tylenol PO 650 mg Q4H PRN Administration Headache/Fever/Mild Pain (1-3) Amitriptyline HCl 25 mg 12/05/19 21:00 12/09/19 22:26 Elavil PO 25 mg HS ZAIRE Administration Amlodipine Besylate 5 mg 12/05/19 09:00 12/09/19 10:31 Norvasc PO 5 mg DAILY ZAIRE Administration Divalproex Sodium 1,000 mg 12/05/19 09:00 12/09/19 16:35 Depakote Er PO Not Given DAILY ZAIRE Docusate Sodium 100 mg 12/07/19 21:00 12/09/19 22:26 Colace PO 100 mg BID ZAIRE Administration Enoxaparin Sodium 40 mg 12/06/19 09:00 12/09/19 10:33 Lovenox SC 40 mg 0900 ZAIRE Administration Famotidine 20 mg 12/05/19 09:00 12/09/19 22:27 Pepcid PO 20 mg BID ZAIRE Administration Gabapentin 300 mg 12/05/19 09:00 12/09/19 10:33 Neurontin PO 300 mg DAILY ZAIRE Administration Hydralazine HCl 10 mg 12/04/19 21:36 12/05/19 09:04 Apresoline SLOW IVP 10 mg Q6H PRN Administration SBP GREATER THAN 160 Promethazine HCl 12.5 mg/ 50.5 mls @ 202 mls/hr 12/04/19 21:36 12/08/19 04:47 Sodium Chloride IVPB 50.5 mls Q6H PRN Administration Nausea/vomiting, use second Dextrose/Sodium Chloride 1,000 mls @ 100 mls/hr 12/08/19 12:45 12/09/19 22:42 D5 0.9% Ns IV 1,000 mls .Q10H ZAIRE Administration Ibuprofen 600 mg 12/06/19 17:01 12/07/19 21:04 Motrin PO 600 mg BID PRN Administration Fever > 101 Losartan Potassium 100 mg 12/05/19 09:00 12/09/19 10:32 Cozaar PO 100 mg DAILY ZAIRE Administration Melatonin 3 mg 12/07/19 15:49 12/09/19 22:26 Melatonin PO 3 mg HS PRN Administration Insomnia Meloxicam 7.5 mg 12/05/19 09:00 12/09/19 10:31 Mobic PO 7.5 mg DAILY ZAIRE Administration Morphine Sulfate 4 mg 12/06/19 17:02 12/09/19 22:27 Morphine SLOW IVP 4 mg Q4H PRN Administration Moderate to Severe Pain (4-10) Nystatin 1 gm 12/06/19 17:00 12/06/19 21:58 Mycostatin Powder TOP 1 gm TID PRN Administration Topical Irritations Ondansetron HCl 4 mg 12/04/19 21:36 12/08/19 06:00 Zofran IVP 4 mg Q6H PRN Administration Nausea/Vomiting, use 1st Pantoprazole Sodium 40 mg 12/05/19 09:00 12/09/19 16:36 Protonix PO Not Given DAILY ZAIRE Polyethylene Glycol 17 gm 12/08/19 09:00 12/09/19 10:36 Miralax PO 17 gm DAILY ZAIRE Administration Primidone 200 mg 12/05/19 09:00 12/09/19 10:46 Mysoline PO 200 mg DAILY ZAIRE Administration Rosuvastatin Calcium 10 mg 12/05/19 09:00 12/09/19 10:31 Crestor PO 10 mg DAILY ZAIRE Administration Throat Lozenges 1 emily 12/09/19 10:31 12/09/19 19:14 Cepastat Lozenges PO 1 emily Q2H PRN Administration Sore Throat - Exam Eye: PERRL, anicteric sclera, scleral icterus ENT: normocephalic atraumatic, no oropharyngeal lesions Heart: RRR, no murmur, no gallops, no rubs Respiratory: no wheezes, no rales, no ronchi, normal chest expansion Gastrointestinal: tender to palpation, distended Gastrointestinal - other findings: Hyperactive bowel sounds. Extremities: no edema Hosp A/P - Plan This is a 69-year-old male patient admitted on account of partial bowel obstruction secondary to ventral hernia. He is status post hernia repair. He also has previous MRSA infection for which she is on ongoing vancomycin. This morning he developed nausea and vomiting and chest x-ray notes partial small bowel obstruction Partially small bowel obstructing secondary to ventral hernia Status post repair Continue on NG tube and management as per surgery. Manage and correct electrolyte imbalances. Psoas abscess with MRSA On vancomycin no monitoring temperature Patient is temperature has been stable On vancomycin Discussed with ID Skin rash on anterior abdominal wall almost resolved Insomnia No significant improvement on melatonin We will monitor for more night -Bilateral leg pain Improved
[2019-12-10] MEDS: Vancomycin 1.5 GRAM/300 ML BAG 1.5 GM in Premix Bag 1 BAG IVPB SCH (00:27)
[2019-12-10] MEDS: Morphine 4 MG/ML VIAL SLOW IVP PRN ×6 (04:24→23:21)
[2019-12-10] MEDS: Vancomycin HCl 1.25 GM in Sodium Chloride 0.9% 250 ML 250 ML IVPB SCH ×2 (05:15→19:21)
[2019-12-10] MEDS: Acetaminophen 325 MG TAB PO PRN (07:44)
[2019-12-10] MEDS ORDERED: Rizatriptan Benzoate 10 MG MLT TAB PO PRN (09:00)
[2019-12-10 09:08] LABS: Hemoglobin 11.1 g/dL (14.0-18.0); Mean Corpuscular HGB CONC 33.2 g/dL (32.0-36.0); Mean Corpuscular Hemoglobin 31.3 pg (27.0-31.0); Mean Corpuscular Volume 94.2 fL (78.0-98.0); Mean Platelet Volume 6.5 fL (7.4-10.4); Platelet Count 239 thou/uL (130-400); RBC Distribution Width 14.6 % (11.5-14.5); Red Blood Cell (RBC) Count 3.55 mill/uL (4.70-6.10); White Blood Cell (WBC) Count 8.4 thou/uL (4.8-10.8)
[2019-12-10 09:25] LABS: Anion Gap 16 mmol/L (10-20); BUN (Urea Nitrogen) 9 mg/dL (8.4-25.7); Calc. Creatinine Clearance 157 mL/min (70-130); Calcium 8.4 mg/dL (7.8-10.44); Carbon Dioxide 20 mmol/L (23-31); Chloride 105 mmol/L (98-107); Estimated GFR-MDRD Greater than 90; Glucose 93 mg/dL (83-110); Potassium 3.4 mmol/L (3.5-5.1); Sodium 138 mmol/L (136-145)
[2019-12-10 09:31] LABS: Band 38 % (5-11); Eosinophils 1 % (0-10); Lymphocytes 5 % (21-51); MDiff Complete? YES; Monocytes 2 % (0-10); Myelocyte 2 % (0-0); Neutrophil 52 % (42-75); Platelet Morphology Comment Appears Adequate; Reflex for Review?? YES; Vacuoles MODERATE
[2019-12-10] MEDS: Docusate 100 MG CAP PO SCH ×2 (09:39→20:24)
[2019-12-10] MEDS: Meloxicam 7.5 MG TAB PO SCH (09:39)
[2019-12-10] MEDS ORDERED: Potassium Chloride 20 MEQ TAB PO SCH (09:45)
--- NOTE | 2019-12-10 10:09 | RAD ---
2 VIEW CHEST: Date: 12/10/2019 HISTORY: Decreased oxygenation. COMPARISON: Portable film of 12/04/2019. FINDINGS: New infiltrate now seen in the right lower lobe. Evidence of small bilateral effusions. Left lung radha ears clear. NG tube is in place. Epidural stimulator leads again noted. IMPRESSION: New confluent infiltrate and atelectasis right lower lobe. Elevated right hemidiaphragm again noted. POS: AGW
--- NOTE | 2019-12-10 10:13 | RAD ---
EXAM: XR Abdomen 2 View PROVIDED CLINICAL HISTORY: Small bowel obstruction COMPARISON: 12/08/2019 FINDINGS: Dorsal column stimulator leads again overlie the lower thoracic and upper lumbar spine. Nasogastric t ube remains in place but has been withdrawn with tip overlying the region of the fundus of the stomach. Most proximal sidehole now likely overlies the distal esophagus or GE junction, and the naso gastric tube should be mildly advanced. There is a single dilated gas distended loop of small bowel in the left abdomen. Bowel gas pattern is otherwise nonspecific. No suspicious calcifications are cole ntified. There is elevation the right hemidiaphragm. Questionable small right pleural effusion and volume loss right lung base is present. However, this be better evaluated with chest x-ray. Degenerat kavon changes are again seen in the spine with vertebroplasty changes vertebral body. IMPRESSION: 1. Nasogastric tube has been slightly withdrawn, and the most proximal sidehole overlies region of th e distal esophagus versus region of GE junction and should be advanced. 2. Loops of small bowel dilatation have improved.
[2019-12-10] MEDS ORDERED: Potassium Chloride 20 MEQ in Premix Bag 1 BAG IVPB SCH (10:15)
[2019-12-10] MEDS: Gabapentin 300 MG CAP PO SCH (10:30)
[2019-12-10] MEDS: Amlodipine 5 MG TAB PO SCH (10:30)
[2019-12-10] MEDS: Losartan 25 MG TAB PO SCH (10:30)
[2019-12-10] MEDS: Polyethylene Glycol 3350 17 GM Packet PO SCH (10:30)
[2019-12-10] MEDS: Primidone 50 MG TAB PO SCH (10:31)
[2019-12-10] MEDS: Rosuvastatin 10 MG TAB PO SCH (10:31)
[2019-12-10] MEDS: Enoxaparin Sodium 40 MG/0.4 ML SYRINGE SC SCH (10:35)
[2019-12-10] MEDS: HYDROcodone/Acetaminophen 5/325 mg Tablet PO PRN (10:39)
[2019-12-10] MEDS: Famotidine 20 MG TAB PO SCH (10:43)
[2019-12-10] MEDS: Cepastat Lozenges 1 LOZ PO PRN ×2 (10:45→22:11)
[2019-12-10] MEDS: Dextrose 5 % And 0.9 % NaCl 1,000 ML IV SCH (11:36)
[2019-12-10] MEDS ORDERED: Acetaminophen 650 MG Suppository PR PRN (11:58)
[2019-12-10 12:19] LABS: Troponin I 0.028 ng/mL (< 0.028)
--- NOTE | 2019-12-10 12:27 | PDOC.HOSPP ---
- Subjective Encounter Date: 12/10/19 Encounter Time: 12:23 Subjective: Patient back from having studies done. He had repeat Abdo series this morning that showed some improvement, however did require further advancement of NGT which has been done. He has had continuous output from NGT. I was notified by RN this morning re: temp, he was not in the room due to having xrays but I did place orders in including CXR, blood cultures, UA/UCx and labs. Patient reportedly bradycardic and EKG requested as well. Had low sats in 80s and was placed on 2L NC with O2 improved to mid 90s. Notified by RN, patient back in room. He states he feels well but continues with mild abdominal discomfort, states he has chronic headaches and has chronic LE pain. Requesting something other than Morphine for pain, states he doesnt last more than 3 hours to help take all the different types of pain away. Reports having what he describes as uncontrollable shaking. He thought they were seizures, but sound like rigors. He had spiked a temp of 103 on return from imaging. Improved to 99.3 with NM Tylenol. Reports has had a cough + yellow sputum. No hemoptysis. Denies chest pain or sob. Complains of lower leg muscle cramps. - Objective Vital Signs & Weight: Vital Signs (12 hours) Temp Pulse Resp BP Pulse Ox 12/10/19 11:35 99.8 F H 112 H 14 116/71 94 L 12/10/19 10:30 130 H 12/10/19 09:00 103.0 F H 130 H 12/10/19 08:09 101.3 F H 130 H 22 H 112/67 92 L 12/10/19 04:05 98.3 F 77 16 111/77 96 12/10/19 00:32 98.1 F 77 16 122/78 95 Weight Admit Weight 267 lb Weight 267 lb I&O: 12/09/19 12/10/19 12/11/19 06:59 06:59 06:59 Intake Total 1860 2000 Output Total 7220 1800 Balance -5360 200 Result Diagrams: 12/10/19 08:58 12/10/19 08:58 Hospitalist ROS - Medication Medications: Active Medications Generic Name Dose Route Start Last Admin Trade Name Freq PRN Reason Stop Dose Admin Acetaminophen 650 mg 12/04/19 21:36 12/10/19 07:44 Tylenol PO 650 mg Q4H PRN Administration Headache/Fever/Mild Pain (1-3) Hydrocodone Bitart/Acetaminophen 1 tab 12/07/19 13:01 12/10/19 10:39 Tucker 5/325 PO 1 tab Q4H PRN Administration Pain Amitriptyline HCl 25 mg 12/05/19 21:00 12/09/19 22:26 Elavil PO 25 mg HS ZAIRE Administration Amlodipine Besylate 5 mg 12/05/19 09:00 12/10/19 10:30 Norvasc PO Not Given DAILY ZAIRE Divalproex Sodium 1,000 mg 12/05/19 09:00 12/10/19 09:39 Depakote Er PO Not Given DAILY ZAIRE Docusate Sodium 100 mg 12/07/19 21:00 12/10/19 09:39 Colace PO Not Given BID ZAIRE Enoxaparin Sodium 40 mg 12/06/19 09:00 12/10/19 10:35 Lovenox SC 40 mg 0900 ZAIRE Administration Gabapentin 300 mg 12/05/19 09:00 12/10/19 10:30 Neurontin PO Not Given DAILY ZAIRE Promethazine HCl 12.5 mg/ 50.5 mls @ 202 mls/hr 12/04/19 21:36 12/08/19 04:47 Sodium Chloride IVPB 50.5 mls Q6H PRN Administration Nausea/vomiting, use second Dextrose/Sodium Chloride 1,000 mls @ 100 mls/hr 12/08/19 12:45 12/10/19 11:36 D5 0.9% Ns IV 1,000 mls .Q10H ZAIRE Administration Vancomycin HCl 1.25 gm/ Sodium 250 mls @ 166.667 mls/hr 12/10/19 06:00 05:15 Chloride IVPB 250 mls 0600,1800 ZAIRE Administration Potassium Chloride 20 meq/ 100 mls @ 50 mls/hr 12/10/19 10:15 12/10/19 10:40 Device IVPB 12/10/19 13:00 100 mls NOW ZAIRE Administration Ibuprofen 600 mg 12/06/19 17:01 12/07/19 21:04 Motrin PO 600 mg BID PRN Administration Fever > 101 Losartan Potassium 100 mg 12/05/19 09:00 12/10/19 10:30 Cozaar PO Not Given DAILY [facility] Melatonin 3 mg 12/07/19 15:49 12/09/19 22:26 Melatonin PO 3 mg HS PRN Administration Insomnia Meloxicam 7.5 mg 12/05/19 09:00 12/10/19 09:39 Mobic PO Not Given DAILY [facility] Morphine Sulfate 4 mg 12/06/19 17:02 12/10/19 09:03 Morphine SLOW IVP 4 mg Q4H PRN Administration Moderate to Severe Pain (4-10) Nystatin 1 gm 12/06/19 17:00 12/06/19 21:58 Mycostatin Powder TOP 1 gm TID PRN Administration Topical Irritations Ondansetron HCl 4 mg 12/04/19 21:36 12/08/19 06:00 Zofran IVP 4 mg Q6H PRN Administration Nausea/Vomiting, use 1st Polyethylene Glycol 17 gm 12/08/19 09:00 12/10/19 10:30 Miralax PO Not Given DAILY [facility] Primidone 200 mg 12/05/19 09:00 12/10/19 10:31 Mysoline PO Not Given DAILY [facility] Rosuvastatin Calcium 10 mg 12/05/19 09:00 12/10/19 10:31 Crestor PO Not Given DAILY [facility] Throat Lozenges 1 emily 12/09/19 10:31 12/10/19 10:45 Cepastat Lozenges PO 1 emily Q2H PRN Administration Sore Throat Tramadol HCl 100 mg 12/07/19 13:01 12/10/19 07:46 Ultram PO 100 mg Q4H PRN Administration Moderate Pain (4-6) Hosp A/P (1) Fever Code(s): R50.9 - FEVER, UNSPECIFIED Status: Acute (2) Aspiration pneumonia Code(s): J69.0 - PNEUMONITIS DUE TO INHALATION OF FOOD AND VOMIT Status: Suspected (3) Tachycardia Code(s): R00.0 - TACHYCARDIA, UNSPECIFIED Status: Acute (4) Hypokalemia Code(s): E87.6 - HYPOKALEMIA Status: Acute (5) SBO (small bowel obstruction) Code(s): K56.609 - UNSP INTESTNL OBST, UNSP TO PARTIAL VERSUS COMPLETE OBST Status: Acute (6) Abdominal pain Code(s): R10.9 - UNSPECIFIED ABDOMINAL PAIN Status: Acute - Plan Awaiting EKG. Labs done, awaiting results. D-dimer had been ordered due to low sats and tachycardia. In light of CXR findings of RLL infiltrate, likely has aspiration pneumonia which would explain above. If d-dimer elevated will obtain venous doppler first. Has had midline catheter placed, and will have urgent CT Abd/Pelvis per Dr. Goodwin to rule out abdominal infection. Will add-on Cefepime as per discussion with Dr. العلي. Will update Dr. Curran for further recommendations. Gentle hydration. GI prophylaxis. Repeat labs in the AM. Continue to replace electrolyte as necessary. UA/UCx pending.
[2019-12-10] MEDS ORDERED: Iopamidol-370 76% 500 ML 1 ML ONE (13:19)
[2019-12-10] MEDS ORDERED: Magnesium 2 GM/50 ML 2 GM in Premix Bag 1 BAG IVPB SCH (13:30)
--- NOTE | 2019-12-10 14:37 | CT ---
CT ABDOMEN AND PELVIS WITH IV CONTRAST: INDICATION: Fever. Status post hernia repair. COMPARISON: Comparison is made to CT abdomen and pelvis of 12/04/2019. FINDINGS: Images through the lung bases show streaky atelectasis and/or infiltrate in the right lung base. Liver, spleen, and pancreas unremarkable. The gallbladder is distended without pericholecystic edema . An NG tube has the tip overlying the region of the gastric antrum. Small bowel loops are normal caliber. There are postoperative changes at the previously described anterior abdominal wall hernia at the umb ilicus. There I now a fluid dense collection with numerous internal gas pockets seen just beneath th e abdominal wall at this site. This fluid collection displaces underlying small bowel loops. This f luid dense collection measures 6 cm width by approximately 3.6 cm AP dimension. The presence of inte rnal gas pockets and fluid would be concerning for a loculated abscess. This appears to be posterior to the peritoneum. There is also some fluid and gas pockets in the subcutaneous adipose tissue anterior to the abdominal wall at the operative site which could represent early infectious process or postoperative change. The colon is unremarkable with diverticulosis again noted in the sigmoid. Renal cystic lesions are stable. Kidneys are otherwise unremarkable and stable. IMPRESSION: A confined fluid dense collection with internal gas pockets seen posterior to the anterior abdominal wall at the operative site concerning for small abscess. Gas and fluid density in the subcutaneous t issues anterior to the abdominal wall at the operative site also noted as described above. POS: AGW
[2019-12-10] MEDS: Sodium Chloride 0.9% 1,000 ML IV SCH ×2 (14:42→14:47)
[2019-12-10] MEDS: Cefepime 2 GM in Sodium Chloride 0.9% 100 ML IVPB SCH (14:44)
--- NOTE | 2019-12-10 16:07 | ULT ---
Venous duplex sonogram bilateral lower extremity HISTORY: Bilateral leg pain and edema. FINDINGS: Each common femoral vein and greater saphenous junction were evaluated along with each femo ral, deep femoral, popliteal, and posterior tibial vein. There is good color and spectral Doppler flow, compression, and augmentation. IMPRESSION : Normal exam.
[2019-12-10 17:27] LABS: Bacteria/HPF None Seen HPF (None Seen); Bilirubin Negative (Negative); Blood, Urine Trace (Negative); Clarity Clear (Clear); Glucose, Urine (Dipstick) Normal (Negative); Ketone, Urine 10 mg/dL (Negative); Leukocyte Negative Leu/uL (Negative); Nitrite Negative (Negative); Protein, Urine (Dipstick) 30 mg/dL (Neg-Trace); Squamous Epithelial None Seen HPF (0-3); Urobilinogen Normal mg/dL (Less than 2); WBC/HPF 0-3 HPF (0-3)
[2019-12-10 17:30] LABS: Specific Gravity, Urine Greater than 1.060 (1.002-1.036)
[2019-12-10 17:31] LABS: Urine Culture Reflex No No
--- NOTE | 2019-12-10 18:07 | PDOC.GSPN ---
Surgery Progress Note: Subj - Subjective Narrative: Patient's NG output has diminished and this abdominal film look that this morning. I was going to order a Gastrografin small bowel follow-through. However when I went to see him he had just spiked a high fever and had shaking chills. Fever to 103. Tachycardic with fever. No hypotension. Sats okay. Chest x-ray shows an infiltrate in the right lower lobe. His incision looks good and there is no fluctuance but he has some cellulitis over his lower abdomen. Assessment/plan: New onset fever and chills. He has some cellulitis near his incision so I ordered a CT scan of the abdomen pelvis with IV contrast only. This did show a fluid collection in the subcutaneous space as well as a small intra-abdominal fluid collection near his surgical site. There were a few bubbles of gas in the fluid collection but since he had open surgery this could just be postoperative. I elected to open the surgical incision for Gram stain and culture of the subcutaneous fluid collection. This was just serous drainage without any odor or cloudiness. I have ordered a Gastrografin small bowel follow-through for tomorrow. If this is normal, we will simply await Gram stain and culture results. If this shows evidence of infection I will ask radiology to percutaneously drain the intra-abdominal component. If it does not appear to be infected then we will simply observe. Surgery Progress Note: Obj - Vital signs Vital signs: Vital Signs - Most Recent Temp Pulse Resp BP Pulse Ox 99.8 F H 112 H 14 116/71 94 L 12/10/19 11:35 12/10/19 11:35 12/10/19 11:35 12/10/19 11:35 12/10/19 11:35 Surgery Progress Note: Results - Labs Result Diagrams: 12/10/19 08:58 12/10/19 08:58 Lab results: Laboratory Results - last 24 hr 12/10/19 12/10/19 12/10/19 08:58 08:58 11:20 WBC 8.4 RBC 3.55 L Hgb 11.1 L Hct 33.4 L MCV 94.2 MCH 31.3 H MCHC 33.2 RDW 14.6 H Plt Count 239 MPV 6.5 L Neutrophils % (Manual) 52 Band Neuts % (Manual) 38 H Lymphocytes % (Manual) 5 L Monocytes % (Manual) 2 Eosinophils % (Manual) 1 Myelocytes % 2 H Lymphocytes # Not Reportable WBC Morphology MODERATE H Plt Morphology Comment Appears Adequate D-Dimer Sodium 138 Potassium 3.4 L Chloride 105 Carbon Dioxide 20 L Anion Gap 16 BUN 9 Creatinine 0.74 Estimated GFR (MDRD) Greater than 90 Glucose 93 Lactic Acid Calcium 8.4 Magnesium 1.7 Troponin I B-Natriuretic Peptide Urine Color Urine Clarity Urine pH Ur Specific Cassatt Urine Protein Urine Glucose (UA) Urine Ketones Urine Blood Urine Nitrite Urine Bilirubin Urine Urobilinogen Ur Leukocyte Esterase Urine RBC Urine WBC Ur Squamous Epith Cells Urine Bacteria Urine Culture Reflexed 12/10/19 12/10/19 12/10/19 11:20 11:20 11:20 WBC RBC Hgb Hct MCV MCH MCHC RDW Plt Count MPV Neutrophils % (Manual) Band Neuts % (Manual) Lymphocytes % (Manual) Monocytes % (Manual) Eosinophils % (Manual) Myelocytes % Lymphocytes # WBC Morphology Plt Morphology Comment D-Dimer 7.06 H Sodium Potassium Chloride Carbon Dioxide Anion Gap BUN Creatinine Estimated GFR (MDRD) Glucose Lactic Acid Calcium Magnesium Troponin I 0.028 B-Natriuretic Peptide 174.1 H Urine Color Urine Clarity Urine pH Ur Specific Cassatt Urine Protein Urine Glucose (UA) Urine Ketones Urine Blood Urine Nitrite Urine Bilirubin Urine Urobilinogen Ur Leukocyte Esterase Urine RBC Urine WBC Ur Squamous Epith Cells Urine Bacteria Urine Culture Reflexed 12/10/19 12/10/19 16:27 17:05 WBC RBC Hgb Hct MCV MCH MCHC RDW Plt Count MPV Neutrophils % (Manual) Band Neuts % (Manual) Lymphocytes % (Manual) Monocytes % (Manual) Eosinophils % (Manual) Myelocytes % Lymphocytes # WBC Morphology Plt Morphology Comment D-Dimer Sodium Potassium Chloride Carbon Dioxide Anion Gap BUN Creatinine Estimated GFR (MDRD) Glucose Lactic Acid 0.8 Calcium Magnesium Troponin I B-Natriuretic Peptide Urine Color Yellow Urine Clarity Clear Urine pH 6.0 Ur Specific Cassatt Greater than 1.060 H Urine Protein 30 A Urine Glucose (UA) Normal Urine Ketones 10 A Urine Blood Trace A Urine Nitrite Negative Urine Bilirubin Negative Urine Urobilinogen Normal Ur Leukocyte Esterase Negative Urine RBC 4-6 A Urine WBC 0-3 Ur Squamous Epith Cells None Seen Urine Bacteria None Seen Urine Culture Reflexed No
[2019-12-10] MEDS: Amitriptyline HCl 25 MG TAB PO SCH (20:24)
[2019-12-10] MEDS: Famotidine/PF 20 mg/2ml Vial SLOW IVP SCH (20:25)
[2019-12-11] MEDS: Cefepime 2 GM in Sodium Chloride 0.9% 100 ML IVPB SCH ×2 (01:11→12:39)
[2019-12-11] MEDS: Dextrose 5 % And 0.9 % NaCl 1,000 ML IV SCH ×3 (03:04→22:33)
[2019-12-11] MEDS: Morphine 4 MG/ML VIAL SLOW IVP PRN ×7 (03:11→23:58)
[2019-12-11] MEDS: Sodium Chloride 0.9% 1,000 ML IV SCH (06:08)
[2019-12-11] MEDS: Vancomycin HCl 1.25 GM in Sodium Chloride 0.9% 250 ML 250 ML IVPB SCH ×2 (06:08→18:10)
[2019-12-11] MEDS: Famotidine/PF 20 mg/2ml Vial SLOW IVP SCH ×2 (09:30→20:01)
[2019-12-11] MEDS: Enoxaparin Sodium 40 MG/0.4 ML SYRINGE SC SCH (09:31)
[2019-12-11] MEDS: Gabapentin 300 MG CAP PO SCH (13:25)
[2019-12-11] MEDS: Amlodipine 5 MG TAB PO SCH (13:25)
[2019-12-11] MEDS: Losartan 25 MG TAB PO SCH (13:25)
[2019-12-11] MEDS: Meloxicam 7.5 MG TAB PO SCH (13:25)
[2019-12-11] MEDS: Docusate 100 MG CAP PO SCH ×2 (13:25→20:01)
[2019-12-11] MEDS: Polyethylene Glycol 3350 17 GM Packet PO SCH (13:26)
[2019-12-11] MEDS: Primidone 50 MG TAB PO SCH (13:26)
[2019-12-11] MEDS: Rosuvastatin 10 MG TAB PO SCH (13:26)
--- NOTE | 2019-12-11 13:50 | PDOC.HOSPP ---
- Subjective Encounter Date: 12/11/19 Encounter Time: 13:47 Subjective: Patient reports having abdominal discomfort associated with re-opening of abdominal incision and states his pain has been generally well-controlled with Morphine. He feels he rested much better last night. Recently came back from having SB follow through. He continues to have abdominal bloating and has been passing excess flatus. NGT with persistent bilious output. Per RN, he might have his diet advanced to clear liquids today. His temp has not spiked further since yesterday. CT findings showed possible fluid collection and erythema over abdominal incision, there was concern for cellulitis/abscess. Did not appear to have any purulent drainage. - Objective Vital Signs & Weight: Vital Signs (12 hours) Temp Pulse Resp BP Pulse Ox 12/11/19 13:25 72 12/11/19 12:00 97.8 F 72 16 151/64 H 94 L 12/11/19 08:06 97.9 F 76 18 128/76 94 L 12/11/19 08:00 94 L 12/11/19 03:58 98.2 F 77 17 128/79 91 L Weight Admit Weight 267 lb Weight 267 lb I&O: 12/10/19 12/11/19 12/12/19 06:59 06:59 06:59 Intake Total 2000 2090 Output Total 1800 2800 Balance 200 -710 Result Diagrams: 12/10/19 08:58 12/10/19 08:58 Hospitalist ROS - Review of Systems Constitutional: reports: fever (resolved) Respiratory: reports: cough Cardiovascular: denies: chest pain, palpitations, orthopnea, paroxysmal noc. dyspnea, edema, light headedness, other Gastrointestinal: reports: abdominal pain Genitourinary: denies: dysuria, frequency, incontinence, hematuria, retention, other Musculoskeletal: reports: back pain (chronic), leg pain (bilateral, chronic) Neurological: denies: weakness, numbness, incoordination, change in speech, confusion, seizures, other - Medication Medications: Active Medications Generic Name Dose Route Start Last Admin Trade Name Freq PRN Reason Stop Dose Admin Acetaminophen 650 mg 12/04/19 21:36 12/10/19 07:44 Tylenol PO 650 mg Q4H PRN Administration Headache/Fever/Mild Pain (1-3) Hydrocodone Bitart/Acetaminophen 1 tab 12/07/19 13:01 12/10/19 10:39 Truxton 5/325 PO 1 tab Q4H PRN Administration Pain Amitriptyline HCl 25 mg 12/05/19 21:00 12/10/19 20:24 Elavil PO 25 mg HS ZAIRE Administration Amlodipine Besylate 5 mg 12/05/19 09:00 12/11/19 13:25 Norvasc PO Not Given DAILY ZAIRE Divalproex Sodium 1,000 mg 12/05/19 09:00 12/11/19 13:25 Depakote Er PO Not Given DAILY ZARIE Docusate Sodium 100 mg 12/07/19 21:00 12/11/19 13:25 Colace PO Not Given BID ZAIRE Enoxaparin Sodium 40 mg 12/06/19 09:00 12/11/19 09:31 Lovenox SC 40 mg 0900 ZAIRE Administration Famotidine 20 mg 12/10/19 21:00 12/11/19 09:30 Pepcid SLOW IVP 20 mg Q12HR ZAIRE Administration Gabapentin 300 mg 12/05/19 09:00 12/11/19 13:25 Neurontin PO Not Given DAILY ZAIRE Promethazine HCl 12.5 mg/ 50.5 mls @ 202 mls/hr 12/04/19 21:36 12/08/19 04:47 Sodium Chloride IVPB 50.5 mls Q6H PRN Administration Nausea/vomiting, use second Dextrose/Sodium Chloride 1,000 mls @ 100 mls/hr 12/08/19 12:45 12/11/19 11:18 D5 0.9% Ns IV Not Given .Q10H ZAIRE Vancomycin HCl 1.25 gm/ Sodium 250 mls @ 166.667 mls/hr 12/10/19 06:00 06:08 Chloride IVPB 250 mls 0600,1800 ZAIRE Administration Cefepime HCl 2 gm/ Sodium 100 mls @ 200 mls/hr 12/10/19 13:00 12/11/19 12:39 Chloride IVPB 100 mls 0100,1300 ZAIRE Administration Sodium Chloride 1,000 mls @ 50 mls/hr 12/10/19 12:45 12/11/19 06:08 Normal Saline 0.9% IV 1,000 mls .Q20H ZAIRE Administration Ibuprofen 600 mg 12/06/19 17:01 12/07/19 21:04 Motrin PO 600 mg BID PRN Administration Fever > 101 Losartan Potassium 100 mg 12/05/19 09:00 12/11/19 13:25 Cozaar PO Not Given DAILY [facility] Melatonin 3 mg 12/07/19 15:49 12/09/19 22:26 Melatonin PO 3 mg HS PRN Administration Insomnia Meloxicam 7.5 mg 12/05/19 09:00 12/11/19 13:25 Mobic PO Not Given DAILY [facility] Morphine Sulfate 4 mg 12/10/19 12:30 12/11/19 12:42 Morphine SLOW IVP 4 mg Q3H PRN Administration Moderate to Severe Pain (4-10) Nystatin 1 gm 12/06/19 17:00 12/06/19 21:58 Mycostatin Powder TOP 1 gm TID PRN Administration Topical Irritations Ondansetron HCl 4 mg 12/04/19 21:36 12/08/19 06:00 Zofran IVP 4 mg Q6H PRN Administration Nausea/Vomiting, use 1st Polyethylene Glycol 17 gm 12/08/19 09:00 12/11/19 13:26 Miralax PO Not Given DAILY [facility] Primidone 200 mg 12/05/19 09:00 12/11/19 13:26 Mysoline PO Not Given DAILY [facility] Rosuvastatin Calcium 10 mg 12/05/19 09:00 12/11/19 13:26 Crestor PO Not Given DAILY [facility] Throat Lozenges 1 emily 12/09/19 10:31 12/10/19 22:11 Cepastat Lozenges PO 1 emily Q2H PRN Administration Sore Throat Tramadol HCl 100 mg 12/07/19 13:01 12/10/19 07:46 Ultram PO 100 mg Q4H PRN Administration Moderate Pain (4-6) - Exam General Appearance: NAD, awake alert Eye: PERRL, anicteric sclera ENT - other findings: NGT in place to suction with continuous bilious output Heart: RRR, no murmur, no gallops, no rubs Respiratory: CTAB, no wheezes, no rales, no ronchi, normal chest expansion, no tachypnea Gastrointestinal: soft, distended, diminished bowl sounds Gastrointestinal - other findings: wound to mid lower abdomen from I&D this am, dressing in place Extremities: no edema Skin: no rashes Neurological: cranial nerve grossly intact Musculoskeletal: normal tone, normal strength, no muscle wasting Psychiatric: normal affect, normal behavior, A&O x 3 Hosp A/P (1) Fever Code(s): R50.9 - FEVER, UNSPECIFIED Status: Resolved (2) Aspiration pneumonia Code(s): J69.0 - PNEUMONITIS DUE TO INHALATION OF FOOD AND VOMIT Status: Suspected (3) Hypokalemia Code(s): E87.6 - HYPOKALEMIA Status: Acute (4) SBO (small bowel obstruction) Code(s): K56.609 - UNSP INTESTNL OBST, UNSP TO PARTIAL VERSUS COMPLETE OBST Status: Acute (5) Abdominal pain Code(s): R10.9 - UNSPECIFIED ABDOMINAL PAIN Status: Acute (6) Insomnia Code(s): G47.00 - INSOMNIA, UNSPECIFIED Status: Acute (7) MRSA (methicillin resistant Staphylococcus aureus) Code(s): A49.02 - METHICILLIN RESIS STAPH INFECTION, UNSP SITE Status: Acute (8) Hyperlipidemia Code(s): E78.5 - HYPERLIPIDEMIA, UNSPECIFIED Status: Chronic (9) Hypertension Code(s): I10 - ESSENTIAL (PRIMARY) HYPERTENSION Status: Chronic - Plan 12/09- Awaiting EKG. Labs done, awaiting results. D-dimer had been ordered due to low sats and tachycardia. In light of CXR findings of RLL infiltrate, likely has aspiration pneumonia which would explain above. If d-dimer elevated will obtain venous doppler first. Has had midline catheter placed, and will have urgent CT Abd/Pelvis per Dr. Goodwin to rule out abdominal infection. Will add-on Cefepime as per discussion with Dr. العلي. Will update Dr. Curran for further recommendations. Gentle hydration. GI prophylaxis. Repeat labs in the AM. Continue to replace electrolyte as necessary. UA/UCx pending. 12/10- Venous doppler negative. No concern for PE. CT A/P: small intra-abdominal fluid collection ?abscess. s/p surgical incision re-opening with no purulent drainage per Dr. Goodwin. Wound care consulted. S/p Small bowel follow-through, results pending. Continue NGT to suction. Further management as per Dr. Goodwin. Repeat labs, replace electrolytes as necessary. Dr. Curran aware of CT and CXR findings, awaiting review re: antibiotic management.
--- NOTE | 2019-12-11 14:34 | CT ---
CT abdomen noncontrast HISTORY: Abscess. Bowel obstruction. Follow-up. COMPARISON: 12/10/2019. FINDINGS: Images were obtained after small bowel follow-through. The intent was to determine whether there was leak of bowel into the intra-abdominal and extra-abdominal fluid/gas collections. The gas/fluid collection at the level of the umbilicus external to the abdominal wall musculature is now 2.7 cm greatest width by 0.7 cm depth, slightly smaller than on the prior exam. Within the most superficial portion, a tiny, longitudinally oriented beaded focus of hyperdensity is present. No hype rdense material within the dependent portion or within the gas/fluid collection immediately deep to the anterior abdominal wall at the same level. The internal abscess is unchanged in size and appearan ce. Contrast opacified bowel abuts and is slightly effaced by the internal abscess. No evidence of bowel leak. No evidence of bowel obstruction. Renal cysts and other findings are stable. IMPRESSION : No evidence of bowel obstruction, leak, or fistulous connection to the intra-abdominal or extra-abdom inal gas/fluid collections. The tiny hyperdensity (iodine) and interval decrease in size of the subcutaneous collection are consistent with interval surgical cleaning.
--- NOTE | 2019-12-11 14:48 | RAD ---
Small bowel follow-through Gastrografin HISTORY: Abdominal pain. Obstruction. FINDINGS: Gastrografin contrast was administered through the indwelling nasogastric tube. There is im mediate opacification of nondilated small bowel. Right colon was reached at 1 hour. Spot images were obtained about the umbilicus, including with patient in right lateral decubitus posi tion, to evaluate for leak of contrast from the small bowel. There is no evidence of leak. IMPRESSION : No evidence of small bowel obstruction or other abnormalities.
[2019-12-11 14:53] LABS: #Eosinphils 0.1 thou/uL (0.0-0.7); #Lymphocytes 0.9 thou/uL (1.20-3.40); #Monocytes 0.7 thou/uL (0.11-0.59); #Neutrophils 7.1 thou/uL (1.40-6.50); %Basophils 0.1 % (0.0-1.0); %Eosinophils 1.4 % (0.0-10.0); %Monocytes 7.8 % (0.0-10.0); %Neutrophils 80.7 % (42.0-75.0); Hemoglobin 11.3 g/dL (14.0-18.0); Mean Corpuscular HGB CONC 32.7 g/dL (32.0-36.0); Mean Corpuscular Hemoglobin 31.3 pg (27.0-31.0); Mean Corpuscular Volume 95.8 fL (78.0-98.0); Mean Platelet Volume 6.5 fL (7.4-10.4); Platelet Count 244 thou/uL (130-400); RBC Distribution Width 14.6 % (11.5-14.5); Red Blood Cell (RBC) Count 3.63 mill/uL (4.70-6.10); White Blood Cell (WBC) Count 8.8 thou/uL (4.8-10.8)
[2019-12-11 15:12] LABS: Anion Gap 18 mmol/L (10-20); BUN (Urea Nitrogen) 12 mg/dL (8.4-25.7); Calc. Creatinine Clearance 135 mL/min (70-130); Calcium 8.9 mg/dL (7.8-10.44); Carbon Dioxide 20 mmol/L (23-31); Chloride 105 mmol/L (98-107); Estimated GFR-MDRD 88; Glucose 78 mg/dL (83-110); Magnesium 2.2 mg/dL (1.6-2.6); Potassium 3.8 mmol/L (3.5-5.1); Sodium 139 mmol/L (136-145)
--- NOTE | 2019-12-11 15:24 | PDOC.GSPN ---
Surgery Progress Note: Subj - Subjective Narrative: Feels better. Multiple BMs after small bowel follow through. No leak or obstruction. Abd wall fluid NGTD on culture. NG DCd, tolerating clears. Adv to fulls in AM if janay clears. Await cx results to decide whether to perc drain intra-abd fluid, but likely just post-op, not infectious. Surgery Progress Note: Obj - Vital signs Vital signs: Vital Signs - Most Recent Temp Pulse Resp BP Pulse Ox 97.8 F 72 16 151/64 H 94 L 12/11/19 12:00 12/11/19 13:25 12/11/19 12:00 12/11/19 12:00 12/11/19 12:00 Surgery Progress Note: Results - Labs Result Diagrams: 12/11/19 14:41 12/11/19 14:41 Lab results: Laboratory Results - last 24 hr 12/10/19 12/11/19 12/11/19 08:58 14:41 14:41 WBC 8.8 RBC 3.63 L Hgb 11.3 L Hct 34.8 L MCV 95.8 MCH 31.3 H MCHC 32.7 RDW 14.6 H Plt Count 244 MPV 6.5 L Neutrophils % 80.7 H Lymphocytes % 10.0 L Monocytes % 7.8 Eosinophils % 1.4 Basophils % 0.1 Neutrophils # 7.1 H Lymphocytes # 0.9 L Monocytes # 0.7 H Eosinophils # 0.1 Basophils # 0.0 Smear Path Review Sodium 139 Potassium 3.8 Chloride 105 Carbon Dioxide 20 L Anion Gap 18 BUN 12 Creatinine 0.86 Estimated GFR (MDRD) 88 Glucose 78 L Calcium 8.9 Magnesium 2.2
--- NOTE | 2019-12-11 15:27 | PRG ---
DATE OF SERVICE: 12/11/2019 SUBJECTIVE: Mr. Beaulieu developed a fever. He had an abdomen and pelvis CT done on yesterday, which demonstrated a fluid dense collection with internal gas pockets just beneath the abdominal wall at the surgical site. This fluid collection displaces on the small bowel loops measuring 6 x 3.6 cm. There are some fluid and gas pockets of subcutaneous adipose tissue. Dr. Goodwin did a limited I and D of the more superficial area and there was some serous-looking fluid. The deeper area was not approached. The patient now is feeling okay. He denies any headaches. No shortness of breath or mild abdominal tenderness. Voiding without difficulty. OBJECTIVE: VITAL SIGNS: He had a temperature of 103 and now is down to 97.8, BP 150/64, pulse 72. LUNGS: Clear. HEART: S1 and S2, regular rate. ABDOMEN: Soft with the small opening along the herniorrhaphy site, mild rim of erythema about less than a centimeter in width. No bladder distention. NEUROLOGIC: Nonfocal. LABORATORY DATA: White cell count 8.8, hemoglobin 11, platelets 244, 80% neutrophils. Creatinine 0.74. Microbiology with urine culture with gram-negative vinicius. Urinalysis with 0 to 3 wbc's. There is a repeat CT. This was without contrast. Followup study. The gas fluid collection at the level of the umbilicus is now 2.7 cm x 0.7, slightly smaller than the prior exam. The sample from the abdominal wall with moderate WBCs, no organisms growing at 24 hours. This is for initiation of antimicrobial therapy. ASSESSMENT AND DISCUSSION: Osteomyelitis of left femur, in remission; prostate cancer following prostatectomy; psoas abscess, which followed the prostatectomy, treated for a protracted time with IV vancomycin after drainage. The catheter that was in place has been removed. There had been a quite a bit of reduction in the size of this collection. I think it almost resolved and now this changes noted above in the herniorrhaphy site. It was discussed with Dr. Goodwin. She is going to continue to observe. I think he will remain on antimicrobials for now and see if there is anything grows out of site. If nothing grows out, then we will discontinue antimicrobial therapy and follow. He has been on enoxaparin prophylaxis, so I am not going to order thromboembolism evaluation at this point. Actually, a venogram was done, which did not show any deep vein thrombosis. Job ID: [id number]
[2019-12-11 17:31] LABS: Vancomycin, Trough 16.9 ug/mL
[2019-12-11] MEDS: Amitriptyline HCl 25 MG TAB PO SCH (20:01)
[2019-12-11] MEDS: HYDROcodone/Acetaminophen 5/325 mg Tablet PO PRN ×2 (20:01→23:57)
[2019-12-11] MEDS: tiZANidine HCl 4 MG TAB PO PRN (22:36)
[2019-12-11] MEDS: Acetaminophen 325 MG TAB PO PRN (22:37)
[2019-12-11] MEDS: Ibuprofen 600 MG TAB PO PRN (22:37)
[2019-12-12] MEDS: Cefepime 2 GM in Sodium Chloride 0.9% 100 ML IVPB SCH ×2 (00:01→12:57)
[2019-12-12] MEDS: HYDROcodone/Acetaminophen 5/325 mg Tablet PO PRN ×3 (04:57→12:51)
[2019-12-12] MEDS: Morphine 4 MG/ML VIAL SLOW IVP PRN ×2 (04:57→09:19)
[2019-12-12] MEDS: Vancomycin HCl 1.25 GM in Sodium Chloride 0.9% 250 ML 250 ML IVPB SCH ×2 (05:44→18:09)
[2019-12-12] MEDS: Sodium Chloride 0.9% 1,000 ML IV SCH (05:44)
[2019-12-12] MEDS: Dextrose 5 % And 0.9 % NaCl 1,000 ML IV SCH ×2 (05:53→17:53)
[2019-12-12 06:32] LABS: BUN (Urea Nitrogen) 8 mg/dL (8.4-25.7); Calc. Creatinine Clearance 142 mL/min (70-130); Calcium 8.2 mg/dL (7.8-10.44); Carbon Dioxide 16 mmol/L (23-31); Chloride 104 mmol/L (98-107); Estimated GFR-MDRD Greater than 90; Glucose 94 mg/dL (83-110); Potassium 3.9 mmol/L (3.5-5.1); Sodium 132 mmol/L (136-145)
[2019-12-12 06:38] LABS: Hemoglobin 10.4 g/dL (14.0-18.0); Mean Corpuscular HGB CONC 32.4 g/dL (32.0-36.0); Mean Corpuscular Hemoglobin 31.2 pg (27.0-31.0); Mean Corpuscular Volume 96.3 fL (78.0-98.0); Mean Platelet Volume 6.1 fL (7.4-10.4); Platelet Count 242 thou/uL (130-400); RBC Distribution Width 14.6 % (11.5-14.5); Red Blood Cell (RBC) Count 3.34 mill/uL (4.70-6.10); White Blood Cell (WBC) Count 7.2 thou/uL (4.8-10.8)
[2019-12-12 06:49] LABS: Anion Gap 17 mmol/L (10-20)
[2019-12-12 08:29] LABS: Band 11 % (5-11); Eosinophils 1 % (0-10); Lymphocytes 18 % (21-51); MDiff Complete? YES; Metamyelocyte 1 % (0-0); Monocytes 13 % (0-10); Neutrophil 56 % (42-75); Platelet Morphology Comment Appears Adequate; Polychromasia SLIGHT = 2-3 cells (100X) (0-2/hpf)
[2019-12-12] MEDS: Primidone 50 MG TAB PO SCH (09:12)
[2019-12-12] MEDS: Polyethylene Glycol 3350 17 GM Packet PO SCH (09:13)
[2019-12-12] MEDS: Docusate 100 MG CAP PO SCH ×2 (09:15→20:35)
[2019-12-12] MEDS: Losartan 25 MG TAB PO SCH (09:15)
[2019-12-12] MEDS: Gabapentin 300 MG CAP PO SCH (09:15)
[2019-12-12] MEDS: Amlodipine 5 MG TAB PO SCH (09:15)
[2019-12-12] MEDS: Meloxicam 7.5 MG TAB PO SCH (09:19)
[2019-12-12] MEDS: Rosuvastatin 10 MG TAB PO SCH (09:19)
[2019-12-12] MEDS: Famotidine/PF 20 mg/2ml Vial SLOW IVP SCH ×2 (09:19→20:35)
[2019-12-12] MEDS: Enoxaparin Sodium 40 MG/0.4 ML SYRINGE SC SCH (10:17)
[2019-12-12] MEDS ORDERED: guaiFENesin 200 MG TAB PO PRN (12:13)
[2019-12-12] MEDS: tiZANidine HCl 4 MG TAB PO PRN ×2 (12:50→22:01)
--- NOTE | 2019-12-12 12:57 | PDOC.GSPN ---
Surgery Progress Note: Subj - Subjective Narrative: Patient is feeling good. Tolerating full liquid diet. Having bowel movements and passing gas. Stools are still fairly liquid. No abdominal pain except for at his incision. Cultures from subcutaneous fluid collection are still negative. I believe that his fever was likely respiratory in origin. If he has repeated fevers or chills I will ask interventional radiology to percutaneously drain the intra-abdominal fluid collection, but I think this is likely just postoperative from his open surgery. From a surgical standpoint he can be discharged on a full liquid diet to advance slowly to a GI soft and then to regular, once his antibiotics are clarified. He states that his dentures are broken and he cannot afford to replace them so he might need some instructions from the dietitian regarding how to modify his diet. Since he cannot chew he should probably pure any fibrous foods that he is going to take. He is to follow-up with me in 2 weeks time. He is to change his abdominal wound packing daily. I have asked the nurses to instruct him in this. He has done wound packing before and feels confident that he can do this. He is to continue to wear his binder. It has a tendency to right up on his abdomen which may have further impeded his respirations, so I have encouraged him to make sure that it stays down over the incision. Surgery Progress Note: Obj - Vital signs Vital signs: Vital Signs - Most Recent Temp Pulse Resp BP Pulse Ox 97.8 F 73 16 135/85 95 12/12/19 11:40 12/12/19 11:40 12/12/19 11:40 12/12/19 11:40 12/12/19 11:40 Surgery Progress Note: Results - Labs Result Diagrams: 12/12/19 06:07 12/12/19 05:13 Lab results: Laboratory Results - last 24 hr 12/12/19 12/12/19 05:13 06:07 WBC 7.2 RBC 3.34 L Hgb 10.4 L Hct 32.2 L MCV 96.3 MCH 31.2 H MCHC 32.4 RDW 14.6 H Plt Count 242 MPV 6.1 L Neutrophils % (Manual) 56 Band Neuts % (Manual) 11 Lymphocytes % (Manual) 18 L Monocytes % (Manual) 13 H Eosinophils % (Manual) 1 Metamyelocytes % (Man) 1 H Lymphocytes # Not Reportable Plt Morphology Comment Appears Adequate Polychromasia SLIGHT = 2-3 cells Sodium 132 L Potassium 3.9 Chloride 104 Carbon Dioxide 16 L Anion Gap 17 BUN 8 L Creatinine 0.82 Estimated GFR (MDRD) Greater than 90 Glucose 94 Calcium 8.2
[2019-12-12] MEDS ORDERED: Saccharomyces boulardii 250 MG CAP PO SCH (13:00)
--- NOTE | 2019-12-12 15:04 | PDOC.HOSPP ---
- Subjective Encounter Date: 12/12/19 Encounter Time: 11:56 Subjective: Patient feeling significantly better today after having NGT removed yesterday. Tolerated a clear liquid diet this morning without any n/v or abdo pain. Abdomen still slightly distended, but notably improved. States he has several bowel movements yesterday which were loose. Today he continues to have loose stools which he feels is due to liquid diet. Continues with a cough productive for yellow sputum. Requesting medication to help expel the phlegm better. Patient currently concerned about his pain regimen. States he has chronic pain in his legs, head (due to migraines) and though his abdominal discomfort has eased is requesting stronger pain medications to go home on. He is aware he is unable to be discharged on Morphine. Requested specifically Percocet. States he has seen a pain specialist in the past who he no longer wishes to see for pain control. He had a nerve stimulator placed which he states works well with his right lower leg pain. Was told he would benefit from a second nerve stimulator along c-spine but has not had follow-up for this. His PCP has recommended a new pain specialist which he plans to establish care with. - Objective Vital Signs & Weight: Vital Signs (12 hours) Temp Pulse Resp BP BP Pulse Ox 12/12/19 11:40 97.8 F 73 16 135/85 95 12/12/19 09:15 79 129/77 12/12/19 09:13 96 12/12/19 08:00 97.8 F 79 18 125/78 96 12/12/19 03:26 97.9 F 68 17 117/76 98 Weight Admit Weight 267 lb Weight 267 lb I&O: 12/11/19 12/12/19 12/13/19 06:59 06:59 06:59 Intake Total 2090 5248 Output Total 2800 1170 Balance -710 4078 Result Diagrams: 12/12/19 06:07 12/12/19 05:13 Hospitalist ROS - Review of Systems Constitutional: denies: fever, chills, sweats, weakness, malaise, other Eyes: denies: pain, vision change, conjunctivae inflammation, eyelid inflammation, redness, other ENT: denies: ear pain, ear discharge, nose pain, nose discharge, nose congestion , mouth pain, mouth swelling, throat pain, throat swelling, other Respiratory: reports: cough, sputum (yellow). denies: dry, shortness of breath , hemoptysis, SOB with excertion, pleuritic pain, wheezing, other Cardiovascular: denies: chest pain, palpitations, orthopnea, paroxysmal noc. dyspnea, edema, light headedness, other Gastrointestinal: denies: nausea, vomiting, abdominal pain, diarrhea, constipation, melena, hematochezia, other Genitourinary: denies: dysuria, frequency, incontinence, hematuria, retention, other Musculoskeletal: denies: neck pain, shoulder pain, arm pain, back pain, hand pain, leg pain, foot pain, other Skin: denies: rash, lesions, cecilio, bruising, other Neurological: denies: weakness, numbness, incoordination, change in speech, confusion, seizures, other - Medication Medications: Active Medications Generic Name Dose Route Start Last Admin Trade Name Freq PRN Reason Stop Dose Admin Acetaminophen 650 mg 12/04/19 21:36 12/11/19 22:37 Tylenol PO 650 mg Q4H PRN Administration Headache/Fever/Mild Pain (1-3) Amitriptyline HCl 25 mg 12/05/19 21:00 12/11/19 20:01 Elavil PO 25 mg HS ZAIRE Administration Amlodipine Besylate 5 mg 12/05/19 09:00 12/12/19 09:15 Norvasc PO 5 mg DAILY ZAIRE Administration Divalproex Sodium 1,000 mg 12/05/19 09:00 12/12/19 09:13 Depakote Er PO 1,000 mg DAILY ZAIRE Administration Docusate Sodium 100 mg 12/07/19 21:00 12/12/19 09:15 Colace PO 100 mg BID ZAIRE Administration Enoxaparin Sodium 40 mg 12/06/19 09:00 12/12/19 10:17 Lovenox SC 40 mg 0900 ZAIRE Administration Famotidine 20 mg 12/10/19 21:00 12/12/19 09:19 Pepcid SLOW IVP 20 mg Q12HR ZAIRE Administration Gabapentin 300 mg 12/05/19 09:00 12/12/19 09:15 Neurontin PO 300 mg DAILY ZAIRE Administration Promethazine HCl 12.5 mg/ 50.5 mls @ 202 mls/hr 12/04/19 21:36 12/08/19 04:47 Sodium Chloride IVPB 50.5 mls Q6H PRN Administration Nausea/vomiting, use second Dextrose/Sodium Chloride 1,000 mls @ 100 mls/hr 12/08/19 12:45 12/12/19 05:53 D5 0.9% Ns IV Not Given .Q10H ZARIE Vancomycin HCl 1.25 gm/ Sodium 250 mls @ 166.667 mls/hr 12/10/19 06:00 05:44 Chloride IVPB 250 mls 0600,1800 ZAIRE Administration Cefepime HCl 2 gm/ Sodium 100 mls @ 200 mls/hr 12/10/19 13:00 12/12/19 12:57 Chloride IVPB 100 mls 0100,1300 ZAIRE Administration Sodium Chloride 1,000 mls @ 50 mls/hr 12/10/19 12:45 12/12/19 05:44 Normal Saline 0.9% IV 1,000 mls .Q20H ZAIRE Administration Ibuprofen 600 mg 12/06/19 17:01 12/11/19 22:37 Motrin PO 600 mg BID PRN Administration Fever > 101 Losartan Potassium 100 mg 12/05/19 09:00 12/12/19 09:15 Cozaar PO 100 mg DAILY ZAIRE Administration Melatonin 3 mg 12/07/19 15:49 12/09/19 22:26 Melatonin PO 3 mg HS PRN Administration Insomnia Meloxicam 7.5 mg 12/05/19 09:00 12/12/19 09:19 Mobic PO 7.5 mg DAILY ZAIRE Administration Morphine Sulfate 4 mg 12/10/19 12:30 12/12/19 09:19 Morphine SLOW IVP 4 mg Q3H PRN Administration Moderate to Severe Pain (4-10) Nystatin 1 gm 12/06/19 17:00 12/06/19 21:58 Mycostatin Powder TOP 1 gm TID PRN Administration Topical Irritations Ondansetron HCl 4 mg 12/04/19 21:36 12/08/19 06:00 Zofran IVP 4 mg Q6H PRN Administration Nausea/Vomiting, use 1st Polyethylene Glycol 17 gm 12/08/19 09:00 12/12/19 09:13 Miralax PO 17 gm DAILY ZAIRE Administration Primidone 200 mg 12/05/19 09:00 12/12/19 09:12 Mysoline PO 200 mg DAILY ZAIRE Administration Rosuvastatin Calcium 10 mg 12/05/19 09:00 12/12/19 09:19 Crestor PO 10 mg DAILY ZAIRE Administration Saccharomyces Boulardii 250 mg 12/12/19 13:00 12/12/19 14:46 Florastor PO 12/12/19 15:00 250 mg NOW ZAIRE Administration Throat Lozenges 1 emily 12/09/19 10:31 12/10/19 22:11 Cepastat Lozenges PO 1 emily Q2H PRN Administration Sore Throat Tizanidine HCl 4 mg 12/04/19 20:29 12/12/19 12:50 Zanaflex PO 4 mg Q6H PRN Administration Muscle Spasm Tramadol HCl 100 mg 12/07/19 13:01 12/10/19 07:46 Ultram PO 100 mg Q4H PRN Administration Moderate Pain (4-6) - Exam General Appearance: NAD Eye: PERRL, anicteric sclera ENT: normocephalic atraumatic, no oropharyngeal lesions Neck: supple, symmetric, no JVD, no lymphadenopathy Heart: RRR, normal peripheral pulses Respiratory: CTAB, no wheezes, no rales, no ronchi, normal chest expansion Gastrointestinal: soft, non-tender, non-distended, no guarding, no rigidity Extremities: no edema Skin: no rashes Neurological: cranial nerve grossly intact, no weakness Musculoskeletal: normal strength, no muscle wasting Psychiatric: normal affect, normal behavior, A&O x 3 Hosp A/P (1) Fever Code(s): R50.9 - FEVER, UNSPECIFIED Status: Resolved (2) Aspiration pneumonia Code(s): J69.0 - PNEUMONITIS DUE TO INHALATION OF FOOD AND VOMIT Status: Suspected (3) Hypokalemia Code(s): E87.6 - HYPOKALEMIA Status: Resolved (4) SBO (small bowel obstruction) Code(s): K56.609 - UNSP INTESTNL OBST, UNSP TO PARTIAL VERSUS COMPLETE OBST Status: Resolved (5) MRSA (methicillin resistant Staphylococcus aureus) Code(s): A49.02 - METHICILLIN RESIS STAPH INFECTION, UNSP SITE Status: Acute (6) Insomnia Code(s): G47.00 - INSOMNIA, UNSPECIFIED Status: Resolved (7) Hyperlipidemia Code(s): E78.5 - HYPERLIPIDEMIA, UNSPECIFIED Status: Chronic (8) Hypertension Code(s): I10 - ESSENTIAL (PRIMARY) HYPERTENSION Status: Chronic - Plan continue antibiotics, out of bed/ambulate, DVT proph w/SCDs 12/09- Awaiting EKG. Labs done, awaiting results. D-dimer had been ordered due to low sats and tachycardia. In light of CXR findings of RLL infiltrate, likely has aspiration pneumonia which would explain above. If d-dimer elevated will obtain venous doppler first. Has had midline catheter placed, and will have urgent CT Abd/Pelvis per Dr. Goodwin to rule out abdominal infection. Will add-on Cefepime as per discussion with Dr. العلي. Will update Dr. Curran for further recommendations. Gentle hydration. GI prophylaxis. Repeat labs in the AM. Continue to replace electrolyte as necessary. UA/UCx pending. 12/10- Venous doppler negative. No concern for PE. CT A/P: small intra-abdominal fluid collection ?abscess. s/p surgical incision re-opening with no purulent drainage per Dr. Goodwin. Wound care consulted. S/p Small bowel follow-through, results pending. Continue NGT to suction. Further management as per Dr. Goodwin. Repeat labs, replace electrolytes as necessary. Dr. Curran aware of CT and CXR findings, awaiting review re: antibiotic management. 12/11- NGT removed yesterday, tolerating liquid diet, advance as per surgery team. Has been cleared by surgery for discharge home on full liquid diet with plans to advance to GI soft diet slowly, eventually a regular diet. UCx: + pseudomonas. Continue antibiotics, seen by Dr. Curran and will have arrangements for IV home antibiotics. Disposition based on above. Wound care following re: surgical incision drainage/re-opening for suspected abscess. Patient to continue wound care at home. Patient to see PCP/Pain management as outpatient for continued management of his chronic pain. Potential discharge for tomorrow. Continue melatonin for sleep, increased to [address] العلي.
--- NOTE | 2019-12-12 17:35 | PRG ---
DATE OF SERVICE: 12/12/2019 SUBJECTIVE: Mr. Beaulieu is looking okay, he is not in discomfort as before. Passing loose stools from his diet most likely. OBJECTIVE: GENERAL: No change in symptoms. VITAL SIGNS: He is afebrile. Blood pressure 130/80. LUNGS: Clear. HEART: S1 and S2. Regular rate. ABDOMEN: With fairly unremarkable wound site now. No erythema. Minimal drainage. LABORATORY DATA: White cell count 7.2, hemoglobin 10.4, and platelets 242. Creatinine 0.82 . Urine, clean-catch, probably colonization without true invasive features. His preliminary culture from the fluid with no growth at 48 hours. ASSESSMENT AND DISCUSSION: 1. Osteomyelitis, left femur, in remission. 2. Prostate cancer following prostatectomy. 3. Psoas abscess, which followed the prostatectomy, treated with IV vancomycin and drainage with almost resolution. Now, this area of serous collection after the herniorrhaphy revision, it looks like it is going to layer out plate glass to be not infected. If it is infected, probably methicillin-resistant Staphylococcus aureus would be the more likely culprit. Nothing has grown yet. If so, we will probably consider switching to oral doxy and rifampin for a few days and follow up in the outpatient setting. Job ID: [id number] [facility]
[2019-12-12] MEDS: HYDROcodone/Acetaminophen 7.5/325 mg Tablet PO PRN ×2 (18:09→22:02)
[2019-12-12] MEDS: Amitriptyline HCl 25 MG TAB PO SCH (20:35)
[2019-12-12] MEDS: Melatonin 3 MG TAB PO PRN (22:02)
[2019-12-13] MEDS: Cefepime 2 GM in Sodium Chloride 0.9% 100 ML IVPB SCH ×2 (00:48→13:23)
[2019-12-13] MEDS: Sodium Chloride 0.9% 1,000 ML IV SCH ×2 (01:18→20:01)
[2019-12-13] MEDS: Dextrose 5 % And 0.9 % NaCl 1,000 ML IV SCH ×3 (03:35→20:08)
[2019-12-13] MEDS: tiZANidine HCl 4 MG TAB PO PRN ×3 (03:53→23:30)
[2019-12-13] MEDS: HYDROcodone/Acetaminophen 7.5/325 mg Tablet PO PRN ×3 (03:53→13:23)
[2019-12-13 05:19] LABS: #Eosinphils 0.3 thou/uL (0.0-0.7); #Lymphocytes 1.1 thou/uL (1.20-3.40); #Monocytes 0.6 thou/uL (0.11-0.59); %Basophils 0.2 % (0.0-1.0); %Eosinophils 3.7 % (0.0-10.0); %Lymphocytes 15.2 % (21.0-51.0); %Monocytes 9.1 % (0.0-10.0); %Neutrophils 71.8 % (42.0-75.0); Hemoglobin 10.8 g/dL (14.0-18.0); Mean Corpuscular HGB CONC 32.2 g/dL (32.0-36.0); Mean Corpuscular Hemoglobin 30.8 pg (27.0-31.0); Mean Corpuscular Volume 95.6 fL (78.0-98.0); Mean Platelet Volume 6.4 fL (7.4-10.4); Platelet Count 262 thou/uL (130-400); RBC Distribution Width 14.5 % (11.5-14.5); Red Blood Cell (RBC) Count 3.49 mill/uL (4.70-6.10); White Blood Cell (WBC) Count 6.9 thou/uL (4.8-10.8)
[2019-12-13 05:37] LABS: Vancomycin, Trough 17.5 ug/mL
[2019-12-13 05:40] LABS: Anion Gap 13 mmol/L (10-20); BUN (Urea Nitrogen) 6 mg/dL (8.4-25.7); Calc. Creatinine Clearance 153 mL/min (70-130); Calcium 8.3 mg/dL (7.8-10.44); Carbon Dioxide 24 mmol/L (23-31); Chloride 104 mmol/L (98-107); Estimated GFR-MDRD Greater than 90; Glucose 106 mg/dL (83-110); Potassium 3.9 mmol/L (3.5-5.1); Sodium 137 mmol/L (136-145)
[2019-12-13] MEDS: Vancomycin HCl 1.25 GM in Sodium Chloride 0.9% 250 ML 250 ML IVPB SCH (05:56)
[2019-12-13] MEDS: Enoxaparin Sodium 40 MG/0.4 ML SYRINGE SC SCH (08:44)
[2019-12-13] MEDS: Primidone 50 MG TAB PO SCH (08:44)
[2019-12-13] MEDS: Docusate 100 MG CAP PO SCH ×2 (08:45→20:00)
[2019-12-13] MEDS: Amlodipine 5 MG TAB PO SCH (08:46)
[2019-12-13] MEDS: Losartan 25 MG TAB PO SCH (08:47)
[2019-12-13] MEDS: Saccharomyces boulardii 250 MG CAP PO SCH (08:47)
[2019-12-13] MEDS: Gabapentin 300 MG CAP PO SCH (08:47)
[2019-12-13] MEDS: Meloxicam 7.5 MG TAB PO SCH (08:47)
[2019-12-13] MEDS: Famotidine/PF 20 mg/2ml Vial SLOW IVP SCH ×2 (08:48→20:00)
[2019-12-13] MEDS: Rosuvastatin 10 MG TAB PO SCH (08:48)
[2019-12-13] MEDS: Polyethylene Glycol 3350 17 GM Packet PO SCH (08:48)
[2019-12-13] MEDS ORDERED: HYDROcodone/Acetaminophen 7.5/325 mg Tablet PO PRN (13:49)
--- NOTE | 2019-12-13 19:52 | PDOC.GSPN ---
Surgery Progress Note: Subj - Subjective Narrative: Doing fine. Tolerating soft diet. Comfortable with packing his incision. Incision looks good. Culture still negative. A/P: S/p hernia repair doing well. SBO resolved. Continue wound packing. Antibiotics per Dr Curran. OK to discharge from surgical standpoint. RTC 2 wks. Surgery Progress Note: Obj - Vital signs Vital signs: Vital Signs - Most Recent Temp Pulse Resp BP Pulse Ox 98.6 F 82 16 138/86 100 12/13/19 16:06 12/13/19 16:06 12/13/19 16:06 12/13/19 16:06 12/13/19 16:06 Surgery Progress Note: Results - Labs Result Diagrams: 12/13/19 05:03 12/13/19 05:03
[2019-12-13] MEDS: Melatonin 3 MG TAB PO PRN (20:00)
[2019-12-13] MEDS: Doxycycline 100 MG CAP PO SCH (20:01)
[2019-12-13] MEDS: Amitriptyline HCl 25 MG TAB PO SCH (20:01)
[2019-12-13] MEDS: Rifampin 300 MG CAP PO SCH (20:01)
[2019-12-13] MEDS: HYDROcodone/Acetaminophen 5/325 mg Tablet PO PRN (23:31)
[2019-12-14] MEDS: tiZANidine HCl 4 MG TAB PO PRN ×2 (05:41→11:33)
[2019-12-14] MEDS: HYDROcodone/Acetaminophen 5/325 mg Tablet PO PRN ×2 (05:41→11:29)
[2019-12-14] MEDS: Dextrose 5 % And 0.9 % NaCl 1,000 ML IV SCH (06:48)
[2019-12-14] MEDS: Meloxicam 7.5 MG TAB PO SCH (08:51)
[2019-12-14] MEDS: Famotidine/PF 20 mg/2ml Vial SLOW IVP SCH (08:51)
[2019-12-14] MEDS: Losartan 25 MG TAB PO SCH (08:51)
[2019-12-14] MEDS: Rosuvastatin 10 MG TAB PO SCH (08:51)
[2019-12-14] MEDS: Rifampin 300 MG CAP PO SCH (08:52)
[2019-12-14] MEDS: Doxycycline 100 MG CAP PO SCH (08:53)
[2019-12-14] MEDS: Enoxaparin Sodium 40 MG/0.4 ML SYRINGE SC SCH (08:53)
[2019-12-14] MEDS: Docusate 100 MG CAP PO SCH (08:53)
[2019-12-14] MEDS: Saccharomyces boulardii 250 MG CAP PO SCH (08:53)
[2019-12-14] MEDS: Gabapentin 300 MG CAP PO SCH (08:53)
[2019-12-14] MEDS: Amlodipine 5 MG TAB PO SCH (08:53)
[2019-12-14] MEDS: Primidone 50 MG TAB PO SCH (09:00)
[2019-12-14] MEDS: Polyethylene Glycol 3350 17 GM Packet PO SCH (09:05)
[2019-12-14 11:53] VITALS: BP 155/92; TEMP 97.5
--- NOTE | 2019-12-17 10:36 | PDOC.HOSPP ---
- Subjective Subjective: Date of admission: 12/04/2019 Date of discharge: 12/13/2019 Discharge diagnoses: Partial small bowel obstruction Aspiration pneumonia History of psoas abscess Chronic lower leg pain. Brief hospital course This is a 69-year-old male patient who was recently diagnosed with strep sepsis status post drainage and antibiotic completion presents with left lower leg pain and abdominal pain on 12/04/2019. Initial management was for cellulitis of his lower extremities however also had abdominal imaging that revealed an incarcerated ventral hernia. Surgery was consulted and he had hernia repair - Objective Vital Signs & Weight: Weight Admit Weight 267 lb Weight 267 lb Result Diagrams: 12/13/19 05:03 12/13/19 05:03 Hosp A/P - Plan This is a 69-year-old male patient admitted on account of partial bowel obstruction secondary to ventral hernia. He is status post hernia repair. He also has previous MRSA infection for which she is on ongoing vancomycin. This morning he developed nausea and vomiting and chest x-ray notes partial small bowel obstruction Partially small bowel obstructing secondary to ventral hernia Status post repair Continue on NG tube and management as per surgery. Manage and correct electrolyte imbalances. Psoas abscess with MRSA On vancomycin no monitoring temperature Patient is temperature has been stable On vancomycin Discussed with ID Skin rash on anterior abdominal wall almost resolved Insomnia No significant improvement on melatonin We will monitor for more night -Bilateral leg pain Improved
--- NOTE | 2019-12-17 22:41 | PQF ---
CLINICAL DOCUMENTATION CLARIFICATION FORM: Dear : Jahaira Goodwin MD Date / Time: 12/17/19 Please exercise your independent, professional judgment in responding to the clarification form. Clinical indicators are provided on the bottom of this form for your review Procedure: Repair of recurrent, obstructing ventral incisional hernia [ ] Adheolysis is extensive to the procedure [ ] Adheolysis is inherent to the procedure [ ] Unable to determine [ ] Other procedure: (Please specify if any) Physician Signature: Date/Time: For continuity of documentation, please document condition throughout progress notes and discharge summary. Thank You. To be completed by CDI/Coding staff for physician review: Present Clinical Indicators - Signs / Symptoms / Labs Results and Location in Medical Record [ x ] Findings: Dense adhesions to hernia sac and to surrounding mesh. Op note on 12/04 [ x ] Hernia was opened and dense adhesions were found between the small bowel and the hernia sac Op note on 12/04 [ x ] These adhesions were taken down through the avascular plane for centimeters in each directions Op note on 12/04 [ X] Superior to the hernia defect, there were only a few adhesions, following which omental adhesions to the mesh were encountered Op note on 12/04 Present Risk Factors Results and Location in Medical Record [x ] Recurrent, obstructing ventral incisional hernia Op note on 12/04 [ ] [ ] [ ] Present Treatments Results and Location in Medical Record [ x ] Hernia repair Op note on 12/04 [ ] [ ] [ ] 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 This is a permanent part of the Medical Record [facility]
--- NOTE | 2019-12-18 13:23 | EKG ---
Test Reason : Blood Pressure : / mmHG Vent. Rate : 119 BPM Atrial Rate : 119 BPM P-R Int : 172 ms QRS Dur : 092 ms QT Int : 332 ms P-R-T Axes : 046 023 043 degrees QTc Int : 467 ms Sinus tachycardia Otherwise normal ECG When compared with ECG of 04-DEC-2019 12:11, No significant change was found Confirmed by DR. Criselda MORAN MD ([id number]) on 12/18/2019 1:23:25 PM Referred By: VIRGIL FITZGERALD Confirmed By:DR. Criselda MORAN MD
--- NOTE | 2019-12-20 11:08 | DIS ---
DATE OF ADMISSION: 12/04/2019 DATE OF DISCHARGE: 12/13/2019 DISCHARGE DIAGNOSES: 1. Partial small-bowel obstruction. 2. Ventral incisional hernia 3. Aspiration pneumonia. 4. History of psoas abscess. 5. Chronic bilateral lower leg pain. HOSPITAL COURSE: This is a 69-year-old male patient, who was recently admitted on account of left psoas abscess with MRSA and had incision and drainage and had completed antibiotics. He returned with pain in his legs bilaterally with abdominal pain on 12/04/2019, and initial assessment revealed ventral partial small-bowel obstruction. Vancomycin was started. Surgery was consulted and he had hernia repair. He was monitored on the floor. However, he had a recurrent partial obstruction requiring placement of NG tube. During admission he developed fever post op which was attributed to aspiration pneumonia due to right lower lobar aspiration pneumonia due to new infiltrates on chest xray, cefepime was added to his antibiotics. He however also had a small collection of fluid posterior to his anterior abdominal wall concerning for an abscess. This was excised and drained for culture but no organism grew. ID was consulted for antibiotic management. The patient subsequently improved with conservative management and NG tube placement and was discharged to follow up with ID and General Surgery. He was discharged on Doxycycline and Rifampin. CONSULTATIONS: 1. ID, Dr. Curran. 2. Surgery, Dr. Goodwin. DISCHARGE PHYSICAL EXAMINATION: GENERAL: The patient is awake and alert, in no acute distress. RESPIRATORY: Air entry adequate bilaterally. No rhonchi or rales. CARDIOVASCULAR: S1 and S2 present. No murmurs, gallops, or rubs. ABDOMEN: Full, mild tenderness, surgical wound clean. No discharge is noted. Bowel sounds present and normal. EXTREMITIES: No edema. Mild bilateral lower leg pain. DISCHARGE CONDITION: Stable. FOLLOWUP: ID-Dr. Curran, Surgery-Dr. Goodwin. Job ID: [id number] [facility]
== END 2019-12-14 11:52 | disposition home or self-care (01) | DRG 353 ==
LOC: ERS 12:03 → SURG B 19:46
PROVIDERS: ADMIT Internal Medicine; ATTEND Internal Medicine
PROC: 0WQF0ZZ Repair Abdominal Wall, Open Approach (ICD-10-PCS; principal; 2019-12-05)
DX: K43.0 Incisional hernia with obstruction, without gangrene (principal); K68.12 Psoas muscle abscess; J69.0 Pneumonitis due to inhalation of food and vomit; K56.600 Partial intestinal obstruction, unspecified as to cause; M86.9 Osteomyelitis, unspecified; L03.115 Cellulitis of right lower limb; L03.116 Cellulitis of left lower limb; I10 Essential (primary) hypertension; E78.5 Hyperlipidemia, unspecified; Z96.652 Presence of left artificial knee joint; E66.01 Morbid (severe) obesity due to excess calories; R21 Rash and other nonspecific skin eruption; F32.9 Major depressive disorder, single episode, unspecified; G40.909 Epilepsy, unspecified, not intractable, without status epilepticus; Z20.828 Contact with and (suspected) exposure to other viral communicable diseases; G62.9 Polyneuropathy, unspecified; F41.9 Anxiety disorder, unspecified; F10.10 Alcohol abuse, uncomplicated; A49.02 Methicillin resistant Staphylococcus aureus infection, unspecified site; N39.3 Stress incontinence (female) (male); G47.00 Insomnia, unspecified; E87.6 Hypokalemia; Z87.891 Personal history of nicotine dependence; Z86.718 Personal history of other venous thrombosis and embolism; Z88.0 Allergy status to penicillin; Z91.040 Latex allergy status; Z88.1 Allergy status to other antibiotic agents; Z88.8 Allergy status to other drugs, medicaments and biological substances; Z79.899 Other long term (current) drug therapy; Z85.46 Personal history of malignant neoplasm of prostate; Z98.890 Other specified postprocedural states; Z90.79 Acquired absence of other genital organ(s); Z90.2 Acquired absence of lung [part of]; Z68.37 Body mass index [BMI] 37.0-37.9, adult
CPT/HCPCS: 36415; 64490; 64491; 64492; 71045; 71046; 71275; 74018; 74019; 74150; 74177; 74250; 80048; 80053; 80202; 81001; 82607; 83605; 83735; 83880; 84484; 85025; 85060; 85379; 87040; 87070; 87077; 87086; 87186; 87205; 87635; 93005; 93010; 93970; 96365; 96367; 96375; 96376; J0360; J0692; J0694; J0696; J1170; J1650; J2270; J2405; J2550; J2704; J2920; J3010; J3370; J3475; J3480; J3490; J7030; J7050; Q9967; S0020; S0028; U0003

== ENCOUNTER 2019-12-27 11:31 | Observation (INO) | payer MEDICARE ==
[2019-12-27 12:03] LABS: #Basophils 0.1 thou/uL (0.0-0.2); #Eosinphils 0.2 thou/uL (0.0-0.7); #Lymphocytes 1.2 thou/uL (1.20-3.40); #Monocytes 0.7 thou/uL (0.11-0.59); #Neutrophils 4.4 thou/uL (1.40-6.50); %Basophils 0.9 % (0.0-1.0); %Eosinophils 2.9 % (0.0-10.0); %Monocytes 10.2 % (0.0-10.0); %Neutrophils 67.1 % (42.0-75.0); Hemoglobin 11.2 g/dL (14.0-18.0); Mean Corpuscular HGB CONC 32.2 g/dL (32.0-36.0); Mean Corpuscular Hemoglobin 30.4 pg (27.0-31.0); Mean Corpuscular Volume 94.3 fL (78.0-98.0); Mean Platelet Volume 7.3 fL (7.4-10.4); Platelet Count 211 thou/uL (130-400); RBC Distribution Width 15.2 % (11.5-14.5); Red Blood Cell (RBC) Count 3.68 mill/uL (4.70-6.10); White Blood Cell (WBC) Count 6.5 thou/uL (4.8-10.8)
[2019-12-27 12:29] LABS: ALT (SGPT) 12 U/L (8-55); AST (SGOT) 13 U/L (5-34); Albumin 3.7 g/dL (3.4-4.8); Alkaline Phosphatase 70 U/L (40-110); Anion Gap 17 mmol/L (10-20); BUN (Urea Nitrogen) 29 mg/dL (8.4-25.7); Bilirubin, Total 0.4 mg/dL (0.2-1.2); Calc. Creatinine Clearance 0 mL/min (70-130); Calcium 8.6 mg/dL (7.8-10.44); Carbon Dioxide 25 mmol/L (23-31); Chloride 98 mmol/L (98-107); Estimated GFR-MDRD 41; Glucose 105 mg/dL (83-110); Potassium 4.2 mmol/L (3.5-5.1); Protein, Total 6.7 g/dL (5.8-8.1); Sodium 136 mmol/L (136-145)
--- NOTE | 2019-12-27 12:51 | CT ---
EXAM: CT brain without contrast HISTORY: Fall from standing with left head trauma COMPARISON: 11/06/2019 TECHNIQUE: Multiple contiguous axial images were obtained and a CT of the brain without contrast. FINDINGS: The brain is normal in morphology and attenuation without focal lesions or confluent areas of infarction. There is no evidence of hydrocephalus, intracranial hemorrhage, or extra-axial fluid collection. The calvarium and overlying soft tissues are unremarkable. The visualized paranasal sinuses and masto id air cells are well aerated. Postsurgical changes are seen in the facial bones. IMPRESSION: No evidence of acute intracranial abnormality
--- NOTE | 2019-12-27 12:53 | CT ---
EXAM: CT of the cervical spine without contrast HISTORY: Neck pain After fall with head trauma COMPARISON: 10/02/2019 TECHNIQUE: Multiple contiguous axial images were obtained in a CT of the cervical spine without contr ast. Sagittal and coronal reformats were performed. FINDINGS: The vertebral bodies demonstrate normal height and alignment without fracture or subluxatio n. Moderate stable degenerative changes are present. No prevertebral soft tissue swelling is seen. The posterior facets are well aligned. Normal alignment of the skull base with the cervical spine is seen. The lung apices and cervical soft tissues are unremarkable. IMPRESSION: No evidence of acute osseous abnormality of the cervical spine.
[2019-12-27 14:48] LABS: Actual Bicarbonate (HCO3a) 24.6 mEq/L (22-28); Analyzer IN Cardio ER; Base Excess (BEa) -0.4 mEq/L (-2.0 to +3.0); CO2 Tension 41.7 mmHg (35.0-45.0); Calcium, Ionized (arterial) 1.13 mmol/L (1.12-1.30); Carboxyhemoglobin (COHb) 0.2 gm% (0.0-3.0); Hemoglobin (Hb) 11.8 g/dL (14.0-18.0); O2 Tension (PaO2), arterial 88.5 mmHg (> 70.0); Potassium - ABG Lab 4.03 mmol/L (3.70-5.30); pH, Arterial 7.39 (7.35-7.45)
[2019-12-27 14:49] LABS: ALV-art Gradient 59.015 mmHg (0-20); Puncture Site L.R.
[2019-12-27 16:10] LABS: Acetaminophen Less than 6.0 mcg/mL (10.0-30.0); Alcohol Less than 10 mg/dL (Less than 10); Salicylate Less than 8.0 mg/dL (15.0-30.0)
[2019-12-27] MEDS ORDERED: Enoxaparin Sodium 40 MG/0.4 ML SYRINGE SC SCH (17:30)
[2019-12-27 18:13] LABS: Barbiturates Screen Detected (NotDetected); Medtox Reader # READER 4; Tricyclic Screen Detected (NotDetected)
[2019-12-27 18:14] LABS: Amphetamine Not Detected (NotDetected); Benzodiazepine Screen Not Detected (NotDetected); Cocaine Metabolite Screen Not Detected (NotDetected); Medtox Control Line Valid? VALID (VALID); Methadone Not Detected (NotDetected); Methamphetamine Not Detected (NotDetected); Opiate Screen Not Detected (NotDetected); Oxycodone Screen Not Detected (NotDetected); Phencyclidine (PCP) Not Detected (NotDetected); THC/Cannabinoid Screen Not Detected (NotDetected)
[2019-12-27 18:22] VITALS: BMI 35.1
[2019-12-27] MEDS ORDERED: Ondansetron ODT 4 MG TAB SL PRN (19:00)
[2019-12-27] MEDS ORDERED: Sodium Chloride 0.9% 1,000 ML IV SCH (19:00)
[2019-12-27] MEDS ORDERED: Ondansetron PF 4 MG/2 ML Vial IVP PRN (19:00)
[2019-12-27] MEDS ORDERED: Acetaminophen 325 MG TAB PO PRN (19:00)
[2019-12-27] MEDS: Famotidine 20 MG TAB PO SCH (19:45)
[2019-12-27] MEDS: Sodium Chloride 0.9% 1,000 ML IV SCH (19:50)
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
[2019-12-28] MEDS: Sodium Chloride 0.9% 1,000 ML IV SCH ×2 (04:04→11:44)
[2019-12-28 05:51] LABS: #Eosinphils 0.2 thou/uL (0.0-0.7); #Monocytes 0.6 thou/uL (0.11-0.59); #Neutrophils 5.6 thou/uL (1.40-6.50); %Basophils 0.5 % (0.0-1.0); %Lymphocytes 13.1 % (21.0-51.0); %Monocytes 7.7 % (0.0-10.0); %Neutrophils 75.7 % (42.0-75.0); Hemoglobin 11.3 g/dL (14.0-18.0); Mean Corpuscular HGB CONC 31.2 g/dL (32.0-36.0); Mean Corpuscular Hemoglobin 29.9 pg (27.0-31.0); Mean Corpuscular Volume 95.7 fL (78.0-98.0); Mean Platelet Volume 7.7 fL (7.4-10.4); Platelet Count 180 thou/uL (130-400); White Blood Cell (WBC) Count 7.4 thou/uL (4.8-10.8)
[2019-12-28] MEDS: Acetaminophen 325 MG TAB PO PRN ×2 (05:53→11:43)
[2019-12-28 06:05] LABS: ALT (SGPT) 13 U/L (8-55); AST (SGOT) 14 U/L (5-34); Albumin 3.3 g/dL (3.4-4.8); Alkaline Phosphatase 65 U/L (40-110); Anion Gap 14 mmol/L (10-20); BUN (Urea Nitrogen) 21 mg/dL (8.4-25.7); Bilirubin, Total 0.3 mg/dL (0.2-1.2); Calc. Creatinine Clearance 93 mL/min (70-130); Carbon Dioxide 24 mmol/L (23-31); Chloride 104 mmol/L (98-107); Estimated GFR-MDRD 61; Glucose 87 mg/dL (83-110); Potassium 4.2 mmol/L (3.5-5.1); Protein, Total 6.3 g/dL (5.8-8.1); Sodium 138 mmol/L (136-145)
[2019-12-28] MEDS: Famotidine 20 MG TAB PO SCH ×2 (07:38→21:25)
--- NOTE | 2019-12-28 11:13 | EKG ---
Test Reason : Blood Pressure : / mmHG Vent. Rate : 091 BPM Atrial Rate : 091 BPM P-R Int : 188 ms QRS Dur : 096 ms QT Int : 428 ms P-R-T Axes : 031 001 032 degrees QTc Int : 526 ms Normal sinus rhythm Prolonged QT Abnormal ECG Confirmed by DAVE MOORE MD ([id number]), exhibit cleaner KADI ANTONIO ([id number]) on 12/28/2019 11:13:41 AM Referred By: OSCAR Confirmed By:DAVE MOORE MD
[2019-12-28] MEDS ORDERED: Saccharomyces boulardii 250 MG CAP PO SCH (13:45)
[2019-12-28] MEDS ORDERED: Rizatriptan Benzoate 10 MG MLT TAB PO SCH (13:45)
[2019-12-28] MEDS ORDERED: Bicalutamide 50 MG TAB PO SCH (13:45)
[2019-12-28] MEDS ORDERED: Gabapentin 300 MG CAP PO SCH (13:45)
[2019-12-28] MEDS ORDERED: Potassium Chloride 20 MEQ TAB PO SCH (13:45)
[2019-12-28] MEDS: tiZANidine HCl 4 MG TAB PO PRN (14:21)
[2019-12-28] MEDS: Morphine 4 MG/ML VIAL SLOW IVP PRN ×2 (16:17→21:25)
--- NOTE | 2019-12-28 16:50 | PDOC.HOSPP ---
- Subjective Encounter Date: 12/28/19 Encounter Time: 12:30 Subjective: pt up in bed has pain all over and became very emotional that no one will given him pain meds. - Objective Vital Signs & Weight: Vital Signs (12 hours) Temp Pulse Resp BP Pulse Ox 12/28/19 11:30 97.7 F 76 20 142/82 H 98 12/28/19 07:30 97.5 F L 70 20 127/77 98 Weight Weight 251 lb 12.8 oz I&O: 12/27/19 12/28/19 12/29/19 06:59 06:59 06:59 Intake Total 2234 Output Total 225 Balance 2008 Result Diagrams: 12/28/19 05:15 12/28/19 05:15 Hospitalist ROS - Review of Systems Cardiovascular: denies: chest pain, palpitations, orthopnea, paroxysmal noc. dyspnea, edema, light headedness, other Gastrointestinal: denies: nausea, vomiting, abdominal pain, diarrhea, constipation, melena, hematochezia, other Musculoskeletal: reports: neck pain, shoulder pain, hand pain, leg pain - Medication Medications: Active Medications Generic Name Dose Route Start Last Admin Trade Name Freq PRN Reason Stop Dose Admin Acetaminophen 650 mg 12/27/19 17:20 12/28/19 11:43 Acetaminophen 325 Mg Tab PO 650 mg Q4H PRN Administration Headache/Fever/Mild Pain (1-3) Famotidine 20 mg 12/27/19 21:00 12/28/19 07:38 Famotidine 20 Mg Tab PO 20 mg BID ZAIRE Administration Sodium Chloride 10 ml 12/27/19 21:00 12/28/19 07:39 Flush - Normal Saline 10 Ml Syringe IVF Not Given Q12HR ZAIRE Tizanidine HCl 4 mg 12/28/19 12:48 12/28/19 14:21 Tizanidine Hcl 4 Mg Tab PO 4 mg Q6H PRN Administration Muscle Spasm - Exam Neck: negative: supple, symmetric, no JVD, no thyromegaly, no lymphadenopathy, no carotid bruit, JVD Heart: negative: RRR, no murmur, no gallops, no rubs, normal peripheral pulses, irregular, diminshed peripheral pulses, murmur present, II/IV, III/IV Respiratory: negative: CTAB, no wheezes, no rales, no ronchi, normal chest expansion, no tachypnea, normal percussion, rales, rhonchi, tachypneic, wheezes Gastrointestinal: soft, normal bowel sounds Gastrointestinal - other findings: mid abd incision intact Extremities: 1+ LE edema Hosp A/P (1) Fall Code(s): W19.XXXA - UNSPECIFIED FALL, INITIAL ENCOUNTER Status: Acute (2) Acute metabolic encephalopathy Code(s): G93.41 - METABOLIC ENCEPHALOPATHY Status: Acute (3) Hyperlipidemia Code(s): E78.5 - HYPERLIPIDEMIA, UNSPECIFIED Status: Chronic (4) Hypertension Code(s): I10 - ESSENTIAL (PRIMARY) HYPERTENSION Status: Chronic - Plan will start pt on morphine iv prn and will continue home meds. pt has not been taking his suboxone.
[2019-12-28] MEDS ORDERED: Amitriptyline HCl 25 MG TAB PO SCH (21:00)
[2019-12-29] MEDS: tiZANidine HCl 4 MG TAB PO PRN (01:01)
[2019-12-29] MEDS: Morphine 4 MG/ML VIAL SLOW IVP PRN ×3 (01:27→10:17)
[2019-12-29] MEDS: Famotidine 20 MG TAB PO SCH (08:41)
[2019-12-29] MEDS: Acetaminophen 325 MG TAB PO PRN (08:42)
[2019-12-29] MEDS ORDERED: Gabapentin 300 MG CAP PO SCH (09:00)
[2019-12-29] MEDS ORDERED: Saccharomyces boulardii 250 MG CAP PO SCH (09:00)
[2019-12-29] MEDS ORDERED: Rizatriptan Benzoate 10 MG MLT TAB PO SCH (09:00)
[2019-12-29] MEDS ORDERED: Potassium Chloride 20 MEQ TAB PO SCH (09:00)
[2019-12-29] MEDS ORDERED: Amlodipine 5 MG TAB PO SCH (09:00)
[2019-12-29] MEDS ORDERED: Bicalutamide 50 MG TAB PO SCH (09:00)
[2019-12-29 11:49] VITALS: BP 131/81; TEMP 98.3
--- NOTE | 2019-12-29 21:27 | DIS ---
DATE OF ADMISSION: 12/27/2019 DATE OF DISCHARGE: 12/29/2019 DIAGNOSES: 1. Mechanical fall. 2. Presyncope. 3. Significant medication side effects related to fall. 4. Acute metabolic encephalopathy, most likely secondary to medications. 5. Hyperlipidemia. 6. Hypertension. 7. Acute kidney injury, resolved. HOSPITAL COURSE: The patient is a 69-year-old male with significant medical problems, especially with pain. He had a pain doctor; however, he does not follow up with his pain doctor anymore. He initially was admitted to the hospital after he sustained a fall when he was trying to lean over and roll picker something. He at that time appeared to be a little bit on the drowsy side. The patient is on a whole bunch of medications that could be causing this issue. He did have a CT head and a CT cervical spine. CT head did not show any acute abnormalities and cervical spine CT indicated no evidence of acute osseous abnormalities of the cervical spine. The patient continued to have significant pain all over. He was kept overnight for pain control and he was then discharged. I have advised him to refrain from pain medications and also follow up with his primary care doctor and get a pain doctor to regulate his pain medications. The patient was asked to resume his gabapentin at 300 mg and not up it to 600 since the patient is on a lot of other medications. HOME MEDICATIONS: 1. Tramadol 25 mg t.i.d. as needed. 2. Meloxicam daily as needed. 3. Tizanidine 4 mg every 6 hours p.r.n. 4. Divalproex 500 mg daily. 5. Amlodipine 5 mg daily. 6. Gabapentin 300 mg daily. 7. Hydrochlorothiazide 25 mg daily. 8. Amitriptyline 1 tab p.o. daily. 9. Casodex 50 mg daily. 10. Losartan 100 mg daily. 11. Omeprazole 20 mg daily. 12. Lasix daily. PHYSICAL EXAMINATION: VITAL SIGNS: As of the following; temperature of 98.3, 74, 18, 98% on room air, 131/71. GENERAL: He is awake, alert, and oriented x3. Does not appear in distress. I did see him ambulating in the room without any problems. CARDIOVASCULAR: S1, S2 present. No murmurs, rubs, or gallops. ABDOMEN: Soft and nontender. Bowel sounds are present x2. Again, he will be discharged to home. He will follow up with his primary. Job ID: [id number]
== END 2019-12-29 14:07 | disposition home or self-care (01) ==
LOC: ERS 11:31 → 2SW 15:30
PROVIDERS: ADMIT Family Medicine; ATTEND Family Medicine
DX: R55 Syncope and collapse (principal); T42.6X5A Adverse effect of other antiepileptic and sedative-hypnotic drugs, initial encounter; S09.90XA Unspecified injury of head, initial encounter; I10 Essential (primary) hypertension; E78.5 Hyperlipidemia, unspecified; G93.41 Metabolic encephalopathy; N17.9 Acute kidney failure, unspecified; W18.30XA Fall on same level, unspecified, initial encounter; E78.00 Pure hypercholesterolemia, unspecified; Z79.899 Other long term (current) drug therapy; Z88.0 Allergy status to penicillin; Z88.1 Allergy status to other antibiotic agents; Z88.6 Allergy status to analgesic agent; Z88.8 Allergy status to other drugs, medicaments and biological substances; Z91.040 Latex allergy status; Z91.048 Other nonmedicinal substance allergy status
CPT/HCPCS: 70450; 72125; 80053 ×2; 80306; 80307; 82805; 84484; 85025 ×2; 90732; 93005; G0009; 36415; 90471; 96361; 96372; 96374; 96376; G0378; J1650; J2270

== ENCOUNTER 2020-07-11 16:24 | Inpatient (IN) | payer MEDICARE ==
[2020-07-11 16:55] LABS: #Basophils 0.1 thou/uL (0.0-0.2); #Eosinphils 0.1 thou/uL (0.0-0.7); #Lymphocytes 1.5 thou/uL (1.20-3.40); #Monocytes 0.8 thou/uL (0.11-0.59); #Neutrophils 13.6 thou/uL (1.40-6.50); %Basophils 0.4 % (0.0-1.0); %Eosinophils 0.9 % (0.0-10.0); %Lymphocytes 9.3 % (21.0-51.0); %Neutrophils 84.5 % (42.0-75.0); Hemoglobin 15.4 g/dL (14.0-18.0); Mean Corpuscular Volume 91.3 fL (78.0-98.0); Platelet Count 160 thou/uL (130-400); RBC Distribution Width 12.8 % (11.5-14.5); Red Blood Cell (RBC) Count 4.97 mill/uL (4.70-6.10)
[2020-07-11 17:17] LABS: ALT (SGPT) 21 U/L (8-55); AST (SGOT) 19 U/L (5-34); Albumin 4.5 g/dL (3.4-4.8); Alkaline Phosphatase 115 U/L (40-110); Anion Gap 19 mmol/L (10-20); BUN (Urea Nitrogen) 24 mg/dL (8.4-25.7); Calc. Creatinine Clearance 0 mL/min (70-130); Calcium 9.5 mg/dL (7.8-10.44); Carbon Dioxide 21 mmol/L (23-31); Chloride 101 mmol/L (98-107); Globulin 4.1 g/dL (2.4-3.5); Glucose 107 mg/dL (83-110); Lipase 13 U/L (8-78); Potassium 3.9 mmol/L (3.5-5.1); Protein, Total 8.6 g/dL (5.8-8.1); Sodium 137 mmol/L (136-145)
[2020-07-11 17:32] LABS: CKMB 2.9 ng/mL (0-6.6)
[2020-07-11] MEDS ORDERED: cefTRIAXone\\ROCEPHIN 1 GM VIAL ONE (17:36)
[2020-07-11] MEDS ORDERED: Azithromycin 500 MG VIAL ONE (17:36)
[2020-07-11] MEDS ORDERED: cefTRIAXone\\ROCEPHIN 2 GM VIAL ONE (17:37)
[2020-07-11 18:56] LABS: Bilirubin Negative (Negative); Blood, Urine Negative (Negative); Clarity Clear (Clear); Glucose, Urine (Dipstick) Normal (Negative); Ketone, Urine Negative (Negative); Leukocyte Negative Leu/uL (Negative); Nitrite Negative (Negative); Protein, Urine (Dipstick) Negative (Neg-Trace); Specific Gravity, Urine 1.008 (1.002-1.036); Urobilinogen Normal mg/dL (Less than 2); pH, Urine 5.5 (5.0-9.0)
[2020-07-11] MEDS ORDERED: Fentanyl 100 MCG/2 ML VIAL ONE (18:58)
[2020-07-11] MEDS ORDERED: Enoxaparin Sodium 30 MG/0.3 ML SYRINGE ONE (19:00)
[2020-07-11] MEDS ORDERED: Enoxaparin Sodium 100 MG/ML SYRINGE ONE (19:00)
[2020-07-11] MEDS ORDERED: Enoxaparin Sodium 60 MG/0.6 ML SYRINGE ONE (19:03)
[2020-07-11 19:53] LABS: Lactic Acid 2.3 mmol/L (0.5-2.2)
[2020-07-11] MEDS ORDERED: Acetaminophen 325 MG TAB PO PRN (20:32)
[2020-07-11] MEDS ORDERED: Ondansetron PF 4 MG/2 ML Vial IVP PRN (20:32)
[2020-07-11 20:33] LABS: SARS-CoV-2 NAA Rapid Test Not Detected (NotDetected)
[2020-07-11] MEDS ORDERED: hydrALAZINE 20 MG/ML VIAL SLOW IVP PRN (20:41)
[2020-07-11] MEDS ORDERED: Fentanyl 100 MCG/2 ML VIAL SLOW IVP SCH (22:30)
[2020-07-11 22:35] VITALS: BMI 40.0
[2020-07-11] MEDS: Morphine 4 MG/ML VIAL SLOW IVP PRN (22:37)
[2020-07-11] MEDS: VANCOMYCIN 2 GRAM/400 ML BAG 2 GM in Premix Bag 1 BAG IVPB SCH (23:25)
[2020-07-11 23:39] LABS: Troponin I 0.038 ng/mL (< 0.028)
[2020-07-12 04:38] LABS: #Basophils 0.1 thou/uL (0.0-0.2); #Eosinphils 0.3 thou/uL (0.0-0.7); #Lymphocytes 1.8 thou/uL (1.20-3.40); #Monocytes 0.7 thou/uL (0.11-0.59); #Neutrophils 8.4 thou/uL (1.40-6.50); %Basophils 0.5 % (0.0-1.0); %Eosinophils 2.7 % (0.0-10.0); %Lymphocytes 15.6 % (21.0-51.0); %Monocytes 6.5 % (0.0-10.0); %Neutrophils 74.6 % (42.0-75.0); Hemoglobin 12.5 g/dL (14.0-18.0); Mean Corpuscular HGB CONC 32.4 g/dL (32.0-36.0); Mean Corpuscular Hemoglobin 29.5 pg (27.0-31.0); Mean Platelet Volume 7.7 fL (7.4-10.4); Platelet Count 130 thou/uL (130-400); RBC Distribution Width 12.8 % (11.5-14.5); Red Blood Cell (RBC) Count 4.23 mill/uL (4.70-6.10); White Blood Cell (WBC) Count 11.3 thou/uL (4.8-10.8)
[2020-07-12 04:45] LABS: INR-International Normal Ratio 1.3; PTT 52.6 sec (22.9-36.1); Prothrombin Time 16.7 sec (12.0-14.7)
[2020-07-12] MEDS: Cefepime 1 GM in Sodium Chloride 0.9% 100 ML IVPB SCH ×2 (05:00→16:39)
[2020-07-12 05:06] LABS: Anion Gap 15 mmol/L (10-20); BUN (Urea Nitrogen) 26 mg/dL (8.4-25.7); Calc. Creatinine Clearance 71 mL/min (70-130); Carbon Dioxide 22 mmol/L (23-31); Chloride 102 mmol/L (98-107); Glucose 112 mg/dL (83-110); Potassium 3.2 mmol/L (3.5-5.1); Sodium 136 mmol/L (136-145)
[2020-07-12] MEDS ORDERED: Heparin 10,000 UNITS/ 10 ML VIAL SLOW IVP SCH (05:30)
[2020-07-12] MEDS: Heparin 25,000 units/D5W 500 ML IVPB SCH ×2 (06:18→20:35)
[2020-07-12] MEDS ORDERED: Potassium Chloride 20 MEQ TAB PO SCH (07:15)
[2020-07-12] MEDS: Morphine 4 MG/ML VIAL SLOW IVP PRN ×2 (12:40→23:13)
[2020-07-12 12:49] LABS: PTT 128.1 sec (22.9-36.1)
[2020-07-12] MEDS ORDERED: HYDROcodone/Acetaminophen 5/325 mg Tablet PO PRN (14:26)
[2020-07-12] MEDS: HYDROcodone/Acetaminophen 5/325 mg Tablet PO PRN ×2 (15:28→20:12)
[2020-07-12] MEDS: Amitriptyline HCl 25 MG TAB PO SCH (20:11)
[2020-07-12] MEDS: Heparin 10,000 UNITS/ 10 ML VIAL SLOW IVP SCH (21:52)
[2020-07-12] MEDS: VANCOMYCIN 2 GRAM/400 ML BAG 2 GM in Premix Bag 1 BAG IVPB SCH (23:04)
[2020-07-13 04:41] LABS: #Eosinphils 0.3 thou/uL (0.0-0.7); #Lymphocytes 1.5 thou/uL (1.20-3.40); #Monocytes 0.5 thou/uL (0.11-0.59); #Neutrophils 5.3 thou/uL (1.40-6.50); %Basophils 0.6 % (0.0-1.0); %Lymphocytes 19.2 % (21.0-51.0); %Monocytes 6.8 % (0.0-10.0); %Neutrophils 69.3 % (42.0-75.0); Hemoglobin 12.5 g/dL (14.0-18.0); Mean Corpuscular HGB CONC 34.3 g/dL (32.0-36.0); Mean Corpuscular Hemoglobin 31.4 pg (27.0-31.0); Mean Corpuscular Volume 91.6 fL (78.0-98.0); Mean Platelet Volume 7.9 fL (7.4-10.4); Platelet Count 132 thou/uL (130-400); RBC Distribution Width 12.6 % (11.5-14.5); Red Blood Cell (RBC) Count 3.98 mill/uL (4.70-6.10); White Blood Cell (WBC) Count 7.7 thou/uL (4.8-10.8)
[2020-07-13 04:56] LABS: Anion Gap 15 mmol/L (10-20); BUN (Urea Nitrogen) 21 mg/dL (8.4-25.7); Calc. Creatinine Clearance 82 mL/min (70-130); Carbon Dioxide 21 mmol/L (23-31); Chloride 98 mmol/L (98-107); Glucose 86 mg/dL (83-110); Potassium 3.8 mmol/L (3.5-5.1); Sodium 130 mmol/L (136-145)
[2020-07-13] MEDS: Cefepime 1 GM in Sodium Chloride 0.9% 100 ML IVPB SCH ×2 (09:02→16:38)
[2020-07-13] MEDS: Rizatriptan Benzoate 10 MG MLT TAB PO SCH (09:04)
[2020-07-13] MEDS: Bicalutamide 50 MG TAB PO SCH (09:04)
[2020-07-13] MEDS: Gabapentin 300 MG CAP PO SCH (09:04)
[2020-07-13] MEDS: Amlodipine 5 MG TAB PO SCH (09:06)
[2020-07-13] MEDS: Heparin 10,000 UNITS/ 10 ML VIAL SLOW IVP SCH (09:08)
[2020-07-13] MEDS: Morphine 4 MG/ML VIAL SLOW IVP PRN ×3 (09:09→20:50)
[2020-07-13] MEDS: Heparin 25,000 units/D5W 500 ML IVPB SCH (09:17)
[2020-07-13 16:05] LABS: PTT Greater than 250.0 sec (22.9-36.1)
[2020-07-13] MEDS ORDERED: Morphine 2 MG/ML VIAL SLOW IVP SCH (16:30)
[2020-07-13 18:33] LABS: PTT 249.7 sec (22.9-36.1)
[2020-07-13] MEDS: Amitriptyline HCl 25 MG TAB PO SCH (20:51)
[2020-07-13 22:27] LABS: Vancomycin, Trough 13.4 ug/mL
[2020-07-14] MEDS: Heparin 25,000 units/D5W 500 ML IVPB SCH (00:34)
[2020-07-14] MEDS: Cepastat Lozenges 1 LOZ PO PRN (00:34)
[2020-07-14] MEDS: Morphine 4 MG/ML VIAL SLOW IVP PRN ×4 (01:28→21:47)
[2020-07-14] MEDS: Melatonin 3 MG TAB PO PRN ×2 (01:28→20:11)
[2020-07-14 02:28] LABS: #Eosinphils 0.3 thou/uL (0.0-0.7); #Lymphocytes 1.4 thou/uL (1.20-3.40); #Monocytes 0.6 thou/uL (0.11-0.59); #Neutrophils 4.9 thou/uL (1.40-6.50); %Basophils 0.4 % (0.0-1.0); %Eosinophils 4.8 % (0.0-10.0); %Lymphocytes 18.9 % (21.0-51.0); %Monocytes 8.4 % (0.0-10.0); %Neutrophils 67.5 % (42.0-75.0); Hemoglobin 11.6 g/dL (14.0-18.0); Mean Corpuscular Hemoglobin 31.2 pg (27.0-31.0); Mean Corpuscular Volume 91.6 fL (78.0-98.0); Mean Platelet Volume 7.8 fL (7.4-10.4); Platelet Count 132 thou/uL (130-400); RBC Distribution Width 12.7 % (11.5-14.5); Red Blood Cell (RBC) Count 3.73 mill/uL (4.70-6.10); White Blood Cell (WBC) Count 7.2 thou/uL (4.8-10.8)
[2020-07-14 02:43] LABS: PTT 140.3 sec (22.9-36.1)
[2020-07-14 02:54] LABS: Anion Gap 14 mmol/L (10-20); BUN (Urea Nitrogen) 16 mg/dL (8.4-25.7); Calc. Creatinine Clearance 103 mL/min (70-130); Calcium 8.1 mg/dL (7.8-10.44); Carbon Dioxide 22 mmol/L (23-31); Chloride 101 mmol/L (98-107); Glucose 98 mg/dL (83-110); Potassium 3.5 mmol/L (3.5-5.1); Sodium 133 mmol/L (136-145)
[2020-07-14] MEDS: Cefepime 1 GM in Sodium Chloride 0.9% 100 ML IVPB SCH ×2 (05:02→17:35)
[2020-07-14 05:34] LABS: Hemoglobin 11.5 g/dL (14.0-18.0); Platelet Count 125 thou/uL (130-400)
[2020-07-14] MEDS: Amlodipine 5 MG TAB PO SCH (09:34)
[2020-07-14] MEDS: Gabapentin 300 MG CAP PO SCH (09:34)
[2020-07-14] MEDS: Rizatriptan Benzoate 10 MG MLT TAB PO SCH (09:36)
[2020-07-14] MEDS: Bicalutamide 50 MG TAB PO SCH (09:37)
[2020-07-14] MEDS ORDERED: Apixaban 5 MG TAB PO SCH ×2 (10:00→21:00)
[2020-07-14] MEDS: HYDROcodone/Acetaminophen 5/325 mg Tablet PO PRN ×2 (12:39→20:10)
[2020-07-14] MEDS ORDERED: ALPRAZolam 0.25 MG TAB PO SCH (13:15)
[2020-07-14] MEDS: ALPRAZolam 0.25 MG TAB PO SCH (20:09)
[2020-07-14] MEDS: Apixaban 5 MG TAB PO SCH (20:10)
[2020-07-14] MEDS: Amitriptyline HCl 25 MG TAB PO SCH (20:10)
[2020-07-15] MEDS: Cefepime 1 GM in Sodium Chloride 0.9% 100 ML IVPB SCH ×2 (05:50→17:23)
[2020-07-15] MEDS: ALPRAZolam 0.25 MG TAB PO SCH ×2 (09:04→20:31)
[2020-07-15] MEDS: Bicalutamide 50 MG TAB PO SCH (09:04)
[2020-07-15] MEDS: Rizatriptan Benzoate 10 MG MLT TAB PO SCH (09:05)
[2020-07-15] MEDS: Amlodipine 5 MG TAB PO SCH (09:05)
[2020-07-15] MEDS: Gabapentin 300 MG CAP PO SCH (09:06)
[2020-07-15] MEDS: Apixaban 5 MG TAB PO SCH ×2 (09:06→20:32)
[2020-07-15] MEDS: HYDROcodone/Acetaminophen 5/325 mg Tablet PO PRN ×2 (11:40→19:39)
[2020-07-15] MEDS: Morphine 4 MG/ML VIAL SLOW IVP PRN ×2 (14:18→22:44)
[2020-07-15] MEDS: Amitriptyline HCl 25 MG TAB PO SCH (20:32)
[2020-07-16] MEDS: Cefepime 1 GM in Sodium Chloride 0.9% 100 ML IVPB SCH (04:15)
[2020-07-16 05:26] LABS: Hemoglobin 11.7 g/dL (14.0-18.0); Platelet Count 189 thou/uL (130-400)
[2020-07-16] MEDS: Morphine 4 MG/ML VIAL SLOW IVP PRN ×2 (08:41→20:37)
[2020-07-16] MEDS: Gabapentin 300 MG CAP PO SCH (08:42)
[2020-07-16] MEDS: ALPRAZolam 0.25 MG TAB PO SCH ×2 (08:43→20:38)
[2020-07-16] MEDS: Apixaban 5 MG TAB PO SCH ×2 (08:43→20:38)
[2020-07-16] MEDS: Amlodipine 5 MG TAB PO SCH (08:43)
[2020-07-16] MEDS: Rizatriptan Benzoate 10 MG MLT TAB PO SCH (08:44)
[2020-07-16] MEDS: Bicalutamide 50 MG TAB PO SCH (08:44)
[2020-07-16] MEDS: Cepastat Lozenges 1 LOZ PO PRN (12:13)
[2020-07-16] MEDS: HYDROcodone/Acetaminophen 5/325 mg Tablet PO PRN (17:49)
[2020-07-16] MEDS: Amitriptyline HCl 25 MG TAB PO SCH (20:39)
[2020-07-17] MEDS: HYDROcodone/Acetaminophen 5/325 mg Tablet PO PRN ×3 (02:56→22:00)
[2020-07-17] MEDS: ALPRAZolam 0.25 MG TAB PO SCH ×2 (09:39→22:00)
[2020-07-17] MEDS: Amlodipine 5 MG TAB PO SCH (09:39)
[2020-07-17] MEDS: Apixaban 5 MG TAB PO SCH ×2 (09:39→22:01)
[2020-07-17] MEDS: Gabapentin 300 MG CAP PO SCH (09:39)
[2020-07-17] MEDS: Morphine 4 MG/ML VIAL SLOW IVP PRN ×2 (09:40→19:04)
[2020-07-17] MEDS: Bicalutamide 50 MG TAB PO SCH (09:40)
[2020-07-17] MEDS: Rizatriptan Benzoate 10 MG MLT TAB PO SCH (09:40)
[2020-07-17] MEDS: Amitriptyline HCl 25 MG TAB PO SCH (22:01)
[2020-07-18] MEDS: Morphine 4 MG/ML VIAL SLOW IVP PRN ×2 (00:27→08:57)
[2020-07-18 06:34] LABS: Hemoglobin 11.8 g/dL (14.0-18.0); Platelet Count 224 thou/uL (130-400)
[2020-07-18 07:32] VITALS: TEMP 97.5
[2020-07-18] MEDS: ALPRAZolam 0.25 MG TAB PO SCH (08:56)
[2020-07-18] MEDS: Amlodipine 5 MG TAB PO SCH (08:56)
[2020-07-18] MEDS: Apixaban 5 MG TAB PO SCH (08:56)
[2020-07-18] MEDS: Gabapentin 300 MG CAP PO SCH (08:57)
[2020-07-18] MEDS: Bicalutamide 50 MG TAB PO SCH (08:57)
[2020-07-18] MEDS: Rizatriptan Benzoate 10 MG MLT TAB PO SCH (08:57)
[2020-07-18] MEDS: HYDROcodone/Acetaminophen 5/325 mg Tablet PO PRN (14:50)
[2020-07-18 16:13] VITALS: BP 128/73
[2020-07-21] MEDS ORDERED: Apixaban 5 MG TAB PO SCH (09:00)
== END 2020-07-18 17:55 | disposition home or self-care (01) | DRG 175 ==
LOC: ERS 16:24 → CCU 19:52 → 2NO 07-15 20:16
PROVIDERS: ADMIT Internal Medicine; ATTEND Internal Medicine
DX: I26.02 Saddle embolus of pulmonary artery with acute cor pulmonale (principal); I21.A1 Myocardial infarction type 2; J96.90 Respiratory failure, unspecified, unspecified whether with hypoxia or hypercapnia; I82.409 Acute embolism and thrombosis of unspecified deep veins of unspecified lower extremity; Z68.41 Body mass index [BMI] 40.0-44.9, adult; I12.9 Hypertensive chronic kidney disease with stage 1 through stage 4 chronic kidney disease, or unspecified chronic kidney disease; N18.30 Chronic kidney disease, stage 3 unspecified; E78.5 Hyperlipidemia, unspecified; G89.29 Other chronic pain; Z90.79 Acquired absence of other genital organ(s); Z79.01 Long term (current) use of anticoagulants; Z88.0 Allergy status to penicillin; Z88.1 Allergy status to other antibiotic agents; Z91.040 Latex allergy status; G40.909 Epilepsy, unspecified, not intractable, without status epilepticus; Z96.651 Presence of right artificial knee joint; Z87.891 Personal history of nicotine dependence; Z80.42 Family history of malignant neoplasm of prostate; Z82.49 Family history of ischemic heart disease and other diseases of the circulatory system; D72.829 Elevated white blood cell count, unspecified; R77.8 Other specified abnormalities of plasma proteins; C61 Malignant neoplasm of prostate; E66.01 Morbid (severe) obesity due to excess calories
CPT/HCPCS: 36415; 71275; 80048; 80053; 80202; 81003; 82553; 83605; 83690; 83880; 84484; 85014; 85018; 85025; 85049; 85379; 85610; 85730; 87040; 93005; 93010; 93306; 93970; 96365; 96372; 96374; J0456; J0692; J0696; J1644; J1650; J2270; J2997; J3010; J3370; J3490; U0002

== ENCOUNTER 2020-10-11 09:02 | Emergency (ER) | payer MEDICARE ==
[2020-10-11 09:32] LABS: Bilirubin Negative (Negative); Blood, Urine Negative (Negative); Clarity Clear (Clear); Glucose, Urine (Dipstick) Normal (Negative); Ketone, Urine Negative (Negative); Leukocyte Negative Leu/uL (Negative); Nitrite Negative (Negative); Protein, Urine (Dipstick) Negative (Neg-Trace); Specific Gravity, Urine 1.006 (1.002-1.036); Urobilinogen Normal mg/dL (Less than 2); pH, Urine 6.5 (5.0-9.0)
[2020-10-11] MEDS ORDERED: Iopamidol-370 76% 500 ML 1 ML ONE ×2 (09:56→09:57)
[2020-10-11 09:58] LABS: #Eosinphils 0.2 thou/uL (0.0-0.7); #Lymphocytes 0.7 thou/uL (1.20-3.40); #Monocytes 0.5 thou/uL (0.11-0.59); #Neutrophils 4.4 thou/uL (1.40-6.50); %Basophils 0.5 % (0.0-1.0); %Eosinophils 3.5 % (0.0-10.0); %Lymphocytes 12.6 % (21.0-51.0); %Monocytes 8.1 % (0.0-10.0); %Neutrophils 75.3 % (42.0-75.0); Hemoglobin 12.7 g/dL (14.0-18.0); Mean Corpuscular HGB CONC 34.8 g/dL (32.0-36.0); Mean Corpuscular Hemoglobin 32.2 pg (27.0-31.0); Mean Corpuscular Volume 92.7 fL (78.0-98.0); Mean Platelet Volume 6.8 fL (7.4-10.4); Platelet Count 201 thou/uL (130-400); RBC Distribution Width 13.5 % (11.5-14.5); Red Blood Cell (RBC) Count 3.93 mill/uL (4.70-6.10); White Blood Cell (WBC) Count 5.9 thou/uL (4.8-10.8)
[2020-10-11 10:09] LABS: INR-International Normal Ratio 1.4; PTT 37.5 sec (22.9-36.1); Prothrombin Time 16.7 sec (12.0-14.7)
[2020-10-11 10:19] LABS: ALT (SGPT) 19 U/L (8-55); AST (SGOT) 18 U/L (5-34); Alkaline Phosphatase 74 U/L (40-110); Anion Gap 17 mmol/L (10-20); BUN (Urea Nitrogen) 17 mg/dL (8.4-25.7); Bilirubin, Total 0.3 mg/dL (0.2-1.2); CK (CPK) 125 U/L (30-200); Calc. Creatinine Clearance 0 mL/min (70-130); Calcium 8.6 mg/dL (7.8-10.44); Carbon Dioxide 22 mmol/L (23-31); Chloride 105 mmol/L (98-107); Globulin 2.8 g/dL (2.4-3.5); Glucose 101 mg/dL (83-110); Potassium 4.2 mmol/L (3.5-5.1); Protein, Total 6.8 g/dL (5.8-8.1); Sodium 140 mmol/L (136-145)
[2020-10-11] MEDS ORDERED: Morphine 4 MG/ML VIAL ONE (11:30)
[2020-10-11] MEDS ORDERED: Ondansetron PF 4 MG/2 ML Vial ONE (11:30)
== END 2020-10-11 12:31 | disposition home or self-care (01) ==
LOC: ERS 09:02
DX: I82.402 Acute embolism and thrombosis of unspecified deep veins of left lower extremity (principal); R07.2 Precordial pain; R60.0 Localized edema; M70.71 Other bursitis of hip, right hip; E78.00 Pure hypercholesterolemia, unspecified; I10 Essential (primary) hypertension; M86.9 Osteomyelitis, unspecified; I48.91 Unspecified atrial fibrillation; Z85.46 Personal history of malignant neoplasm of prostate; Z79.899 Other long term (current) drug therapy; Z86.711 Personal history of pulmonary embolism; Z79.01 Long term (current) use of anticoagulants
CPT/HCPCS: 36415; 71275; 74177; 80053; 81003; 82550; 83880; 84484; 85025; 85610; 85730; 93005; 93970; 96374; 96375; J2270; J2405; Q9967

== ENCOUNTER 2021-03-05 11:46 | Inpatient (IN) | payer MEDICARE ==
[2021-03-05] MEDS ORDERED: Morphine 4 MG/ML VIAL ONE ×2 (12:37→15:44)
[2021-03-05] MEDS ORDERED: Ondansetron PF 4 MG/2 ML Vial ONE (12:37)
[2021-03-05 12:48] LABS: #Eosinphils 0.2 thou/uL (0.0-0.7); #Lymphocytes 0.8 thou/uL (1.20-3.40); #Monocytes 0.6 thou/uL (0.11-0.59); #Neutrophils 6.3 thou/uL (1.40-6.50); %Basophils 0.3 % (0.0-1.0); %Eosinophils 2.8 % (0.0-10.0); %Lymphocytes 9.9 % (21.0-51.0); %Monocytes 7.1 % (0.0-10.0); %Neutrophils 79.9 % (42.0-75.0); Mean Corpuscular HGB CONC 33.7 g/dL (32.0-36.0); Mean Corpuscular Hemoglobin 31.9 pg (27.0-31.0); Mean Corpuscular Volume 94.9 fL (78.0-98.0); Mean Platelet Volume 6.9 fL (7.4-10.4); Platelet Count 195 thou/uL (130-400); RBC Distribution Width 12.3 % (11.5-14.5); Red Blood Cell (RBC) Count 3.74 mill/uL (4.70-6.10); White Blood Cell (WBC) Count 7.8 thou/uL (4.8-10.8)
[2021-03-05 13:11] LABS: ALT (SGPT) 22 U/L (8-55); AST (SGOT) 14 U/L (5-34); Albumin 3.7 g/dL (3.4-4.8); Alkaline Phosphatase 77 U/L (40-110); Anion Gap 12 mmol/L (10-20); BUN (Urea Nitrogen) 11 mg/dL (8.4-25.7); Bilirubin, Total 0.3 mg/dL (0.2-1.2); Calc. Creatinine Clearance 0 mL/min (70-130); Calcium 9.3 mg/dL (7.8-10.44); Carbon Dioxide 24 mmol/L (23-31); Chloride 105 mmol/L (98-107); Globulin 3.1 g/dL (2.4-3.5); Glucose 116 mg/dL (83-110); Lipase 15 U/L (8-78); Potassium 4.2 mmol/L (3.5-5.1); Protein, Total 6.8 g/dL (5.8-8.1); Sodium 137 mmol/L (136-145)
[2021-03-05] MEDS ORDERED: Acetaminophen 500 MG TAB PO PRN (16:13)
[2021-03-05] MEDS ORDERED: Ibuprofen 200 MG TAB PO PRN (16:14)
[2021-03-05 16:16] LABS: Lactic Acid 1.9 mmol/L (0.5-2.2)
[2021-03-05] MEDS ORDERED: traMADol HCl 50 MG TAB PO PRN (16:57)
[2021-03-05] MEDS ORDERED: Communication Order-Pharmacy FS SCH (17:09)
[2021-03-05] MEDS ORDERED: hydrALAZINE 20 MG/ML VIAL SLOW IVP PRN (17:09)
[2021-03-05 17:32] VITALS: BMI 39.4
[2021-03-05 17:43] LABS: #Eosinphils 0.3 thou/uL (0.0-0.7); #Lymphocytes 0.9 thou/uL (1.20-3.40); #Monocytes 0.5 thou/uL (0.11-0.59); #Neutrophils 5.2 thou/uL (1.40-6.50); %Basophils 0.3 % (0.0-1.0); %Eosinophils 3.8 % (0.0-10.0); %Lymphocytes 13.5 % (21.0-51.0); %Monocytes 7.4 % (0.0-10.0); %Neutrophils 74.9 % (42.0-75.0); Hemoglobin 11.5 g/dL (14.0-18.0); Mean Corpuscular HGB CONC 33.9 g/dL (32.0-36.0); Mean Corpuscular Hemoglobin 32.6 pg (27.0-31.0); Mean Corpuscular Volume 96.1 fL (78.0-98.0); Mean Platelet Volume 6.9 fL (7.4-10.4); Platelet Count 189 thou/uL (130-400); RBC Distribution Width 12.3 % (11.5-14.5); Red Blood Cell (RBC) Count 3.53 mill/uL (4.70-6.10); White Blood Cell (WBC) Count 6.9 thou/uL (4.8-10.8)
[2021-03-05 18:04] LABS: Anion Gap 12 mmol/L (10-20); BUN (Urea Nitrogen) 9 mg/dL (8.4-25.7); Calc. Creatinine Clearance 126 mL/min (70-130); Carbon Dioxide 24 mmol/L (23-31); Chloride 105 mmol/L (98-107); Glucose 98 mg/dL (83-110); Magnesium 1.9 mg/dL (1.6-2.6); Phosphorus 3.4 mg/dL (2.3-4.7); Potassium 4.5 mmol/L (3.5-5.1); Sodium 136 mmol/L (136-145)
[2021-03-05] MEDS: Dextrose 5%-Lactated Ringers 1,000 ML IV SCH (18:10)
[2021-03-05] MEDS: traMADol HCl 50 MG TAB PO SCH (18:16)
[2021-03-05] MEDS ORDERED: Morphine 4 MG/ML VIAL SLOW IVP PRN (19:59)
[2021-03-05] MEDS: Enoxaparin Sodium 80 MG/0.8 ML SYRINGE SC SCH (20:11)
[2021-03-05] MEDS: Senokot S 8.6-50 MG TAB PO SCH (21:45)
[2021-03-05] MEDS: Morphine 4 MG/ML VIAL SLOW IVP PRN (23:47)
[2021-03-06] MEDS: traMADol HCl 50 MG TAB PO SCH ×4 (01:03→18:24)
[2021-03-06] MEDS: Morphine 4 MG/ML VIAL SLOW IVP PRN ×2 (02:47→06:24)
[2021-03-06 06:22] LABS: #Eosinphils 0.2 thou/uL (0.0-0.7); #Lymphocytes 0.7 thou/uL (1.20-3.40); #Monocytes 0.5 thou/uL (0.11-0.59); #Neutrophils 5.5 thou/uL (1.40-6.50); %Basophils 0.2 % (0.0-1.0); %Eosinophils 3.3 % (0.0-10.0); %Neutrophils 79.5 % (42.0-75.0); Hemoglobin 11.5 g/dL (14.0-18.0); Mean Corpuscular HGB CONC 33.4 g/dL (32.0-36.0); Mean Corpuscular Hemoglobin 31.9 pg (27.0-31.0); Mean Corpuscular Volume 95.4 fL (78.0-98.0); Mean Platelet Volume 6.7 fL (7.4-10.4); Platelet Count 174 thou/uL (130-400); RBC Distribution Width 12.3 % (11.5-14.5); Red Blood Cell (RBC) Count 3.62 mill/uL (4.70-6.10); White Blood Cell (WBC) Count 6.9 thou/uL (4.8-10.8)
[2021-03-06] MEDS: Dextrose 5%-Lactated Ringers 1,000 ML IV SCH (06:24)
[2021-03-06 06:46] LABS: Anion Gap 11 mmol/L (10-20); BUN (Urea Nitrogen) 7 mg/dL (8.4-25.7); Calc. Creatinine Clearance 135 mL/min (70-130); Calcium 9.2 mg/dL (7.8-10.44); Carbon Dioxide 27 mmol/L (23-31); Chloride 104 mmol/L (98-107); Glucose 117 mg/dL (83-110); Potassium 4.1 mmol/L (3.5-5.1); Sodium 138 mmol/L (136-145)
[2021-03-06] MEDS: Polyethylene Glycol 3350 17 GM Packet PO SCH (08:55)
[2021-03-06] MEDS: Enoxaparin Sodium 80 MG/0.8 ML SYRINGE SC SCH ×2 (08:56→20:55)
[2021-03-06] MEDS: Senokot S 8.6-50 MG TAB PO SCH ×2 (08:57→20:55)
[2021-03-06] MEDS ORDERED: Enoxaparin Sodium 40 MG/0.4 ML SYRINGE SC SCH (09:00)
[2021-03-06] MEDS ORDERED: Ibuprofen 600 MG TAB PO SCH (12:00)
[2021-03-06] MEDS: Acetaminophen 500 MG TAB PO SCH ×2 (12:53→18:25)
[2021-03-06] MEDS: Ibuprofen 200 MG TAB PO SCH ×2 (13:01→20:53)
[2021-03-06] MEDS ORDERED: Non-Formulary Item 1 EACH (Albuterol Sulfate [Albuterol Sulfate Hfa] 8.5 GM Hfa.Aer.Ad) IH PRN (13:24)
[2021-03-06] MEDS ORDERED: Albuterol 200 PUFF (6.7GM INHALER) INH PRN (13:37)
[2021-03-06] MEDS ORDERED: Bisacodyl 10 MG SUPP PR PRN (16:27)
[2021-03-06] MEDS: Amitriptyline HCl 25 MG TAB PO SCH (20:54)
[2021-03-06] MEDS ORDERED: Enoxaparin Sodium 120 MG/0.8 ML SYRINGE SC SCH (21:00)
[2021-03-07] MEDS: Acetaminophen 500 MG TAB PO SCH ×4 (00:38→18:01)
[2021-03-07] MEDS: traMADol HCl 50 MG TAB PO SCH ×4 (00:39→18:00)
[2021-03-07] MEDS: Ibuprofen 200 MG TAB PO SCH ×3 (06:06→21:40)
[2021-03-07 06:14] LABS: #Eosinphils 0.2 thou/uL (0.0-0.7); #Lymphocytes 0.9 thou/uL (1.20-3.40); #Monocytes 0.4 thou/uL (0.11-0.59); #Neutrophils 2.7 thou/uL (1.40-6.50); %Basophils 0.3 % (0.0-1.0); %Eosinophils 5.6 % (0.0-10.0); %Lymphocytes 20.6 % (21.0-51.0); %Monocytes 8.8 % (0.0-10.0); %Neutrophils 64.8 % (42.0-75.0); Hemoglobin 11.5 g/dL (14.0-18.0); Mean Corpuscular HGB CONC 34.6 g/dL (32.0-36.0); Mean Corpuscular Hemoglobin 32.8 pg (27.0-31.0); Mean Corpuscular Volume 94.7 fL (78.0-98.0); Mean Platelet Volume 6.5 fL (7.4-10.4); Platelet Count 183 thou/uL (130-400); RBC Distribution Width 12.1 % (11.5-14.5); White Blood Cell (WBC) Count 4.1 thou/uL (4.8-10.8)
[2021-03-07 06:34] LABS: Anion Gap 11 mmol/L (10-20); BUN (Urea Nitrogen) 9 mg/dL (8.4-25.7); Calc. Creatinine Clearance 139 mL/min (70-130); Calcium 9.4 mg/dL (7.8-10.44); Carbon Dioxide 28 mmol/L (23-31); Chloride 103 mmol/L (98-107); Glucose 89 mg/dL (83-110); Potassium 3.7 mmol/L (3.5-5.1); Sodium 138 mmol/L (136-145)
[2021-03-07] MEDS: Gabapentin 300 MG CAP PO SCH (08:54)
[2021-03-07] MEDS: Losartan 25 MG TAB PO SCH (08:54)
[2021-03-07] MEDS: Amlodipine 5 MG TAB PO SCH (08:55)
[2021-03-07] MEDS: Enoxaparin Sodium 80 MG/0.8 ML SYRINGE SC SCH ×2 (08:55→21:41)
[2021-03-07] MEDS: Senokot S 8.6-50 MG TAB PO SCH ×2 (08:56→19:40)
[2021-03-07] MEDS: Polyethylene Glycol 3350 17 GM Packet PO SCH (08:56)
[2021-03-07] MEDS: Bicalutamide 50 MG TAB PO SCH (09:47)
[2021-03-07] MEDS: Amitriptyline HCl 25 MG TAB PO SCH (21:41)
[2021-03-08] MEDS: traMADol HCl 50 MG TAB PO SCH ×3 (00:04→12:01)
[2021-03-08] MEDS: Acetaminophen 500 MG TAB PO SCH ×3 (02:05→12:01)
[2021-03-08] MEDS: Ibuprofen 200 MG TAB PO SCH (04:41)
[2021-03-08 06:46] LABS: #Eosinphils 0.2 thou/uL (0.0-0.7); #Lymphocytes 0.8 thou/uL (1.20-3.40); #Monocytes 0.4 thou/uL (0.11-0.59); #Neutrophils 2.4 thou/uL (1.40-6.50); %Basophils 0.7 % (0.0-1.0); %Eosinophils 6.2 % (0.0-10.0); %Lymphocytes 20.3 % (21.0-51.0); %Monocytes 9.8 % (0.0-10.0); %Neutrophils 63.1 % (42.0-75.0); Hemoglobin 11.4 g/dL (14.0-18.0); Mean Corpuscular HGB CONC 33.7 g/dL (32.0-36.0); Mean Corpuscular Hemoglobin 32.1 pg (27.0-31.0); Mean Corpuscular Volume 95.2 fL (78.0-98.0); Mean Platelet Volume 6.4 fL (7.4-10.4); Platelet Count 192 thou/uL (130-400); RBC Distribution Width 12.4 % (11.5-14.5); Red Blood Cell (RBC) Count 3.55 mill/uL (4.70-6.10); White Blood Cell (WBC) Count 3.7 thou/uL (4.8-10.8)
[2021-03-08 07:04] LABS: Anion Gap 10 mmol/L (10-20); BUN (Urea Nitrogen) 12 mg/dL (8.4-25.7); Calc. Creatinine Clearance 124 mL/min (70-130); Carbon Dioxide 25 mmol/L (23-31); Chloride 106 mmol/L (98-107); Glucose 85 mg/dL (83-110); Potassium 3.7 mmol/L (3.5-5.1); Sodium 137 mmol/L (136-145)
[2021-03-08] MEDS: Enoxaparin Sodium 80 MG/0.8 ML SYRINGE SC SCH (08:51)
[2021-03-08] MEDS: Polyethylene Glycol 3350 17 GM Packet PO SCH (08:51)
[2021-03-08] MEDS: Senokot S 8.6-50 MG TAB PO SCH (08:52)
[2021-03-08] MEDS: Losartan 25 MG TAB PO SCH (08:53)
[2021-03-08] MEDS: Bicalutamide 50 MG TAB PO SCH (08:53)
[2021-03-08] MEDS: Gabapentin 300 MG CAP PO SCH (08:54)
[2021-03-08] MEDS: Amlodipine 5 MG TAB PO SCH (08:54)
[2021-03-08 11:36] VITALS: BP 142/96; TEMP 97.8
== END 2021-03-08 13:30 | disposition home or self-care (01) | DRG 395 ==
LOC: ERS 11:46 → SURG A 14:57
PROVIDERS: ADMIT Internal Medicine; ATTEND Internal Medicine
DX: K43.9 Ventral hernia without obstruction or gangrene (principal); I12.9 Hypertensive chronic kidney disease with stage 1 through stage 4 chronic kidney disease, or unspecified chronic kidney disease; N18.30 Chronic kidney disease, stage 3 unspecified; G40.909 Epilepsy, unspecified, not intractable, without status epilepticus; G44.009 Cluster headache syndrome, unspecified, not intractable; M54.59 Other low back pain; G89.29 Other chronic pain; E78.5 Hyperlipidemia, unspecified; C61 Malignant neoplasm of prostate; F32.A Depression, unspecified; F41.9 Anxiety disorder, unspecified; K42.9 Umbilical hernia without obstruction or gangrene; E66.9 Obesity, unspecified; Z96.652 Presence of left artificial knee joint; Z88.6 Allergy status to analgesic agent; Z88.1 Allergy status to other antibiotic agents; Z88.0 Allergy status to penicillin; Z88.8 Allergy status to other drugs, medicaments and biological substances; Z91.040 Latex allergy status; Z86.711 Personal history of pulmonary embolism; Z79.01 Long term (current) use of anticoagulants; Z79.899 Other long term (current) drug therapy; Z98.890 Other specified postprocedural states; Z79.51 Long term (current) use of inhaled steroids; Z86.718 Personal history of other venous thrombosis and embolism; Z68.39 Body mass index [BMI] 39.0-39.9, adult
CPT/HCPCS: 36415; 71275; 74177; 80048; 80053; 83605; 83690; 83735; 84100; 84484; 85025; 93005; 96374; 96375; 96376; J1650; J2270; J2405; Q9967

== ENCOUNTER 2021-04-28 13:07 | Outpatient (CLI) | payer MEDICARE ==
[~2021-04-28 13:07] MED LIST changes: -Iopamidol-370 76% 500 ML 1 ML ONE; +Magnevist 469MG/ML 20 ML VIAL ONE
== END 2021-04-28 13:08 | disposition home or self-care (01) ==
LOC: MRI 13:07
PROVIDERS: ATTEND Specialist
DX: M54.16 Radiculopathy, lumbar region (principal); M48.061 Spinal stenosis, lumbar region without neurogenic claudication; M48.07 Spinal stenosis, lumbosacral region; M43.26 Fusion of spine, lumbar region; Z98.890 Other specified postprocedural states; Z87.81 Personal history of (healed) traumatic fracture
CPT/HCPCS: 72158; A9579

== ENCOUNTER 2021-05-06 16:34 | Outpatient (CLI) | payer MEDICARE ==
[2021-05-06 17:42] LABS: Bilirubin Neg (Negative); Blood, Urine 10 (Negative); Clarity Clear (Clear); Glucose, Urine (Dipstick) Normal (Negative); Ketone, Urine Negative (Negative); Leukocyte Negative (Negative); Nitrite Negative (Negative); Protein, Urine (Dipstick) Negative (Neg-Trace); Specific Gravity, Urine 1.015 (1.002-1.036); Urobilinogen Normal mg/dL (Less than 2)
[2021-05-06 18:04] LABS: Squamous Epithelial 0-3 HPF (0-3)
[2021-05-06 18:05] LABS: Bacteria/HPF Rare-Few HPF (None Seen); RBC/HPF 0-3 HPF (0-3); WBC/HPF 0-3 HPF (0-3)
[2021-05-06 18:34] LABS: Mean Corpuscular HGB CONC 31.9 g/dL (32.0-36.0); Mean Corpuscular Hemoglobin 30.4 pg (27.0-33.0); Mean Corpuscular Volume 95.3 fl (81.2-95.1); Mean Platelet Volume 9.4 fl (7.4-10.4); Platelet Count 252 10x3/uL (150-450); RBC Distribution Width 13.7 % (11.5-14.5); Red Blood Cell (RBC) Count 4.27 10x6/uL (4.32-5.72); White Blood Cell (WBC) Count 5.6 10x3/uL (3.5-10.5)
[2021-05-06 18:36] LABS: Anion Gap 16 mmol/L (10-20); BUN (Urea Nitrogen) 13 mg/dL (8.4-25.7); Calc. Creatinine Clearance 0 mL/min (70-130); Calcium 9.3 mg/dL (7.8-10.44); Carbon Dioxide 23 mmol/L (23-31); Chloride 106 mmol/L (98-107); Glucose 92 mg/dL (83-110); Potassium 4.1 mmol/L (3.5-5.1); Sodium 141 mmol/L (136-145)
[2021-05-07 09:13] LABS: SARS-CoV-2 PCR by NAA Not Detected (NotDetected)
== END 2021-05-06 16:35 | disposition home or self-care (01) ==
LOC: LABBT 16:34
PROVIDERS: ATTEND Urology
DX: Z01.818 Encounter for other preprocedural examination (principal); N39.3 Stress incontinence (female) (male); Z20.822 Contact with and (suspected) exposure to COVID-19
CPT/HCPCS: 80048; 81001; 85027; 87086; 93005; U0003; U0005; 93010

== ENCOUNTER 2021-05-11 07:50 | Day surgery (SDC) | payer MEDICARE ==
[2021-05-05 11:43] VITALS: BMI 37.2
[2021-05-11] MEDS ORDERED: Gentamicin 240 MG in Sodium Chloride 0.9% 100 ML IVPB SCH (08:30)
[2021-05-11] MEDS ORDERED: Fentanyl 100 MCG/2 ML VIAL ONE ×5 (09:59→13:27)
[2021-05-11] MEDS ORDERED: Bacitracin Zinc Ointment 30 gm TUBE ONE (10:19)
[2021-05-11] MEDS ORDERED: Bupivacaine 0.25% HCL 30 ML VIAL ONE (10:19)
[2021-05-11] MEDS ORDERED: Neomycin-Polymyxin 1 ML AMP ONE (10:19)
[2021-05-11] MEDS ORDERED: ceFAZolin 2 GM/Dextrose 50 ML IVPB ONE (10:35)
[2021-05-11] MEDS ORDERED: Ondansetron PF 4 MG/2 ML Vial ONE (10:48)
[2021-05-11] MEDS ORDERED: Lidocaine 1% PF 5 ML VIAL ONE (10:48)
[2021-05-11] MEDS ORDERED: PROPOFOL 200 MG/20 ML VIAL ONE (10:48)
[2021-05-11] MEDS ORDERED: Morphine 4 MG/ML VIAL ONE (14:24)
[2021-05-11] MEDS ORDERED: Ketorolac Tromethamine 30 MG/ML VIAL ONE (14:24)
[2021-05-11] MEDS ORDERED: diphenhydrAMINE 50 MG/ML VIAL ONE (14:45)
[2021-05-11] MEDS ORDERED: diphenhydrAMINE 25 MG CAP ONE (14:45)
== END 2021-05-11 16:05 | disposition home or self-care (01) ==
LOC: SDC 07:50
PROVIDERS: ATTEND Urology
PROC: 0THD0LZ Insertion of Artificial Sphincter into Urethra, Open Approach (ICD-10-PCS; principal; 2021-05-11)
DX: N39.3 Stress incontinence (female) (male) (principal); I10 Essential (primary) hypertension; E78.5 Hyperlipidemia, unspecified; F10.11 Alcohol abuse, in remission; K21.9 Gastro-esophageal reflux disease without esophagitis; Z85.46 Personal history of malignant neoplasm of prostate; Z87.891 Personal history of nicotine dependence; Z79.01 Long term (current) use of anticoagulants; Z79.899 Other long term (current) drug therapy; Z88.0 Allergy status to penicillin; Z88.1 Allergy status to other antibiotic agents; Z88.6 Allergy status to analgesic agent; Z91.040 Latex allergy status; Z90.2 Acquired absence of lung [part of]
CPT/HCPCS: C1813; J0690; J1200; J1580; J1885; J2270; J3010; J3370; J3490; S0020

== ENCOUNTER 2021-11-18 14:15 | Outpatient (CLI) | payer MEDICARE | END 2021-11-18 14:16 | disposition home or self-care (01) | LOC: BICMAMMO 14:15 | PROVIDERS: ATTEND Family Medicine | DX: N63.12 Unspecified lump in the right breast, upper inner quadrant (principal); N64.4 Mastodynia | CPT/HCPCS: 77066; G0279 ==